=== PATIENT | female | born 1940 | race Caucasian/White ===

== ENCOUNTER 2024-10-14 14:20 | Emergency (ER) | payer MEDICARE, SELFPAY ==
[2024-10-14 14:26] VITALS: BP 144/84; PULSE 89; RESP 18; TEMP 36.4; O2SAT 97; BMI 25.0
--- NOTE | 2024-10-14 14:35 | XR_ITS ---
FINAL REPORT CLINICAL HISTORY: fell knee pain FINDINGS: LEFT KNEE 2 views of the left knee were obtained. There is no prior exam for comparison. There are changes from knee arthroplasty. The hardware is intact. There is no fracture. The joint space is preserved. There is a small joint effusion. The soft tissues are otherwise unremarkable. IMPRESSION: Postoperative changes without acute abnormality of the left knee. Reviewed, Interpreted and Dictated by Alley Watson MD Transcribed by Demetra Hammer Authenticated and . [facility]
--- NOTE | 2024-10-14 14:36 | XR_ITS ---
FINAL REPORT CLINICAL HISTORY: fall ankle pain FINDINGS: LEFT ANKLE 2 views of the left ankle were obtained. There is no prior exam for comparison. There is no acute fracture or dislocation. The mortise is intact. There is mild lateral soft tissue edema, otherwise the soft tissues are unremarkable. IMPRESSION: Lateral soft tissue edema, otherwise no acute abnormality. Reviewed, Interpreted and Dictated by Alley Watson MD Transcribed by Demetra Hammer Authenticated and [facility]
--- NOTE | 2024-10-14 14:44 | HMH.EDGENADL ---
Discharge Plan Disposition Patient Disposition: Home, Self-Care Condition: Good Prescriptions Prescriptions: No Action gabapentin 600 mg tablet 600 mg PO TID Patient Comments: TAKE 1 TABLET BY MOUTH THREE TIMES A DAY losartan 100 mg tablet 100 mg PO DAILY Patient Comments: TAKE 1 TABLET BY MOUTH EVERY DAY metoprolol tartrate 25 mg tablet 25 mg PO BID Patient Comments: TAKE 1 TABLET BY MOUTH TWICE A DAY oxycodone 10 mg tablet 10 mg PO QID Patient Comments: TAKE 1 TABLET BY MOUTH FOUR TIMES A DAY DNF-10/05/24 Referrals Follow up/Referrals: Provider,Referral, MD [Referring] - See instructions Activity Restrictions/Add. Instructions Additional Instructions/Restrictions: Wear your orthopedic boot till follow-up with your orthopedist. You should see him soon for reevaluation of your ankle and your knee. Recommend continuing taking Tylenol alternating every 4 hours with Motrin as well as ice compression elevation. If you have continued new or worsening signs or symptoms follow-up with your PCP or return to the ER as needed. Please follow-up with your orthopedist as scheduled for your neuropathy of your postsurgical knee. Clinical Impressions Clinical Impression: Contusion of knee, left Qualifiers: Encounter type: initial encounter Qualified Code(s): S80.02XA - Contusion of left knee, initial encounter Left ankle sprain Qualifiers: Encounter type: initial encounter Involved ligament of ankle: unspecified ligament Qualified Code(s): S93.402A - Sprain of unspecified ligament of left ankle, initial encounter Print Language Print Language: Liberian Discharge ED Provider: Howard Jose General Adult HPI <DEDE Feliz - Last Filed: 10/14/24 21:50> General Chief complaint: PAIN Stated complaint: AO 10/12 fall left ankle swelling/bruising/pain Time Seen by Provider: 10/14/24 14:37 Mode of Arrival: Wheelchair Source of Information: Patient Limitations: No Limitations Description of Symptoms (Recalled from ER Triage Doc. by RN): Pt fell on thursday getting out of the car and slipped on ice. Pt is have left knee and ankle pain. Pt states she had her left knee replaced in march. Pt is not on BT, did not have LOC. History of Present Illness HPI narrative: Patient presents for a left lower extremity injury. Patient fell on ice on Thursday. She suffered a bruise on her left knee as well as turned her left ankle. Patient however has been able to ambulate on it since but noticed that her foot was turning black and blue . She is on an aspirin a day. She denies any numbness tingling loss of motor or sensory. Related Data Home Medications ?Medication ?Instructions ?Recorded ?Confirmed gabapentin 600 mg tablet 600 mg PO TID 10/14/24 10/14/24 losartan 100 mg tablet 100 mg PO DAILY 10/14/24 10/14/24 metoprolol tartrate 25 mg tablet 25 mg PO BID 10/14/24 10/14/24 oxycodone 10 mg tablet 10 mg PO QID 10/14/24 10/14/24 Allergies Allergy/AdvReac Type Severity Reaction Status Date / Time morphine (MORPHINE) Allergy Unknown RESP. DIFF. Unverified 08/11/17 15:39 [facility] <DEDE Feliz - Last Filed: 10/14/24 21:50> [facility] Disclaimer: The information contained in this section may have been updated after the patient was seen, as this information can be updated by other users. Social History (Updated 10/14/24 @ 21:50 by DEDE Feliz) Smoking Status: Never smoker alcohol intake: never current occupational status: retired Travel in the last 8 weeks: None Have you lived/traveled outside [place] in past 30 days?: No Contact w/someone who lives/traveled outside [place] past 30 days?: No Exposure to someone with infectious disease in past 14 days?: No Do you have a fever (greater than 100.4 F or 38 C)?: No Have you tested positive for COVID-19: No Exposed to someone with COVID-19 in past 14 days?: No Do you have a sore throat?: No Do you have a cough?: No Do you have any weakness?: No Do you have any diarrhea?: No Are you experiencing any unusual bleeding?: No Do you have any muscle aches/pain?: No Do you have any abdominal pain?: No Are you experiencing loss of taste or smell?: No <DEDE Feliz - Last Filed: 10/14/24 21:50> ROS Obtained: Yes Systems reviewed as appropriate & no additional complaints except as documented Physical Exam <DEDE Feliz - Last Filed: 10/14/24 21:50> General General appearance: alert and in no apparent distress Respiratory Respiratory exam: Present normal lung sounds bilaterally Cardiovascular Cardiovascular exam: Present regular rate Extremities Exam Extremities exam: Present normal inspection and full ROM Neurological Exam Neurological exam: Present alert and oriented X3 Medical Decision Making <DEDE Feliz - Last Filed: 10/14/24 21:50> Medical Records Medical records reviewed: Yes I reviewed the patient's medical records. Screening: Per USPSTF and CDC recommendations, given the prevalence of disease in our region, it is our hospital?s policy to screen for HIV and viral Hepatitis for all patients aged 18 and over and those with ongoing risk factors. Chaim Inquiry Pt receiving controlled substance: No Vital Signs: 10/14/24 14:26 10/14/24 16:39 Temperature 97.6 F 97.6 F Temperature Source Temporal Artery Scan Temporal Artery Scan Pulse Rate 80 Pulse Rate [Right] 89 Respiratory Rate 18 18 Blood Pressure 140/80 Blood Pressure [Right Arm] 144/84 H Blood Pressure Mean [Right Arm] 104 Blood Pressure Source Automatic Cuff Blood Pressure Source [Right Arm] Automatic Cuff Blood Pressure Position [Right Arm] Supine 02 Sat by Pulse Oximetry 97 Oxygen Delivery Method Room Air Room Air Orders (Tests/Meds): ORDERS Category Date Time Status Ankle XR - Left 2 Views [XR ankle LT 2V] Stat Exams 10/14/24 14:36 Completed Knee XR left 2 views [XR knee LT 2V] Stat Exams 10/14/24 14:35 Completed Medical Decision Narrative: In summary patient is a 84-year-old female who presents to the emergency department for evaluation of lower extremity injury. Patient is hemodynamically stable upon arrival, afebrile. Physical exam is remarkable for contusion hematoma medial aspect to her left patella with no palpable bony deformity. Patient has tenderness to palpation at the bilateral malleoli but no bony deformity. Patient has ecchymosis from the bilateral malleoli throughout her entire foot. She is neurovascular intact distally. She does have full but painful range of motion of the foot.. Differential diagnosis includes sprain versus fracture versus hardware failure as patient has had previous knee replacement.. Initial workup will be conducted with plain film x-rays. Initial interventions include Tylenol and ibuprofen. Initial workup reviewed by me I do not see any evidence of bony deformity on her plain film imaging via my informal interpretation prior to radiology read.. Upon repeat evaluation patient is able to stand but is having difficulty ambulating normally on her left ankle. Given this I have ordered the patient an orthopedic boot and I have referred her to her orthopedic surgeon with whom she is established for ongoing new or worsening signs or symptoms or return to the ER as needed. <Howard Jose MD - Last Filed: 10/15/24 07:34> Vital Signs: 10/14/24 14:26 10/14/24 16:39 Temperature 97.6 F 97.6 F Temperature Source Temporal Artery Scan Temporal Artery Scan Pulse Rate 80 Pulse Rate [Right] 89 Respiratory Rate 18 18 Blood Pressure 140/80 Blood Pressure [Right Arm] 144/84 H Blood Pressure Mean [Right Arm] 104 Blood Pressure Source Automatic Cuff Blood Pressure Source [Right Arm] Automatic Cuff Blood Pressure Position [Right Arm] Supine 02 Sat by Pulse Oximetry 97 Oxygen Delivery Method Room Air Room Air Orders (Tests/Meds): ORDERS Category Date Time Status Ankle XR - Left 2 Views [XR ankle LT 2V] Stat Exams 10/14/24 14:36 Completed Knee XR left 2 views [XR knee LT 2V] Stat Exams 10/14/24 14:35 Completed Medical Decision Narrative: In summary patient is a 84-year-old female who presents to the emergency department for evaluation of lower extremity injury. Patient is hemodynamically stable upon arrival, afebrile. Physical exam is remarkable for contusion hematoma medial aspect to her left patella with no palpable bony deformity. Patient has tenderness to palpation at the bilateral malleoli but no bony deformity. Patient has ecchymosis from the bilateral malleoli throughout her entire foot. She is neurovascular intact distally. She does have full but painful range of motion of the foot.. Differential diagnosis includes sprain versus fracture versus hardware failure as patient has had previous knee replacement.. Initial workup will be conducted with plain film x-rays. Initial interventions include Tylenol and ibuprofen. Initial workup reviewed by me I do not see any evidence of bony deformity on her plain film imaging via my informal interpretation prior to radiology read.. Upon repeat evaluation patient is able to stand but is having difficulty ambulating normally on her left ankle. Given this I have ordered the patient an orthopedic boot and I have referred her to her orthopedic surgeon with whom she is established for ongoing new or worsening signs or symptoms or return to the ER as needed. I was consulted by the DANIEL, and we discussed the complexity of the problems being addressed. I approved the treatment and management plan for this patient's care in the Emergency Department, thus performing a substantive portion of the medical decision making. Howard Jose MD Critical Care <DEDE Feliz - Last Filed: 10/14/24 21:50> Critical Care Time Critical Care Time: No
--- NOTE | 2024-10-14 16:17 | PC.NURSE ---
Dr Dimas at bedside
[2024-10-14 16:39] VITALS: BP 140/80; PULSE 80; RESP 18; TEMP 36.4; O2SAT 98
== END 2024-10-14 16:42 | disposition home or self-care (01) ==
PROVIDERS: Emergency Provider Emergency Medicine; PCP Family Medicine
DX: S80.02XA Contusion of left knee, initial encounter (principal); S93.402A Sprain of unspecified ligament of left ankle, initial encounter; M25.562 Pain in left knee; M25.572 Pain in left ankle and joints of left foot; Z79.82 Long term (current) use of aspirin; W00.0XXA Fall on same level due to ice and snow, initial encounter; Y93.89 Activity, other specified; Y92.89 Other specified places as the place of occurrence of the external cause
CPT/HCPCS: 73560; 73600; 99284

== ENCOUNTER 2025-04-11 21:12 | Emergency (ER) | payer MEDICARE, SELFPAY ==
--- OUTSIDE RECORDS SUMMARY | 2025-03-22 13:58 | XMS_ITS | Encounter Summary ---
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 Machine Operator Name Role Phone Chad Coughlin MD Primary Care Provi kaitlin Reason for Referral * Diagnostic Imaging (Routine) - Closed Specialty Diagnoses / Procedures [facility] To Contact Radiology Diagnoses Postmenopause Procedures DEXA Bone Density Axial Michelle Hahn APRN Phone: tel: fax: [facility] DEXA DEVI [address] [place] [address] Phone: tel: Referral ID Status Reason Start Date Expiration Date Visits Re quested Visits Authorized [id number] Closed 01/06/2025 04/07/2026 1 1 Reason for Visit * Diagnostic Imaging (Routine) - Closed Specialty Diagnoses / Procedures [facility] Referred To Contact Radiology Diagnoses Postmenopause Procedures DEXA Bone Density Axial Michelle Hahn APRN Phone: tel: fax: [facility] DEXA DEVI [address] [place] [address] Phone: tel: Referral ID Status Reason Start Date Expiration Date Visits Re quested Visits Authorized [id number] Closed 01/06/2025 04/07/2026 1 1 Encounter Details Date Type Department Care Team (Latest Contact Info) Description 03/22/2025 1:58 PM EDT - 03/22/2025 11:59 PM EDT Hospital Encounter [facility] RENITA QUINONEZ [address] [place] [id number] Michelle Hahn, CHRISTINE [address] [place] [address] Postmenopause Discharge Disposition: Home or Self Care [...] or training? Not on file Preferred Language S[place]omean 04/06/2024 PHQ-2 Answer Date Recorded Retired PHQ-9: [...] Description 05/10/2025 11:30 AM EDT Office Visit [facility] RHEUMATOLOGY [address] [place] [address] HahnMichelle APRN [address] [place] [address] 05/24/2025 2:30 PM EDT Office Visit [facility] FAMILY MEDICINE [address] [facility] [address] [place] [address] Chad Coughlin MD [address] [facility] [address] [place] [address] Scheduled Procedures Name Priority Associated Diagnoses Date/Ti [...] to help you manage your pain. Notes: [place] with Chronic Pain Patient Goals No Karen [...] fall-prevention measurements. The National Osteoporosis Foundation recommends (http://www.nof.org/hcp/practice/krctpbid-mfa-gnbfylpa-guidelines/clinicians-omi de) that FDA-approved medical therapies be considered [...] the left hip with 95% confidence is 0.902196 gm/cm2 at the hip and 0.759647 g/cm2 at the lumbar spine. Report dictated by: Renata Huynh PA-c I have personally reviewed this case and agree with the findings above: Electronically Signed: Edwardo Pathak MD 03/22/2025 5:00 PM EDT Workstation ID: [id number] Narrative 03/22/2025 5:00 PM EDT DUAL-ENERGY X-RAY [...] normal patients. According to criteria established by the[facility], patients with T-scores between 1.0 and [...] the right one-third radius is 0.472g/cm2. The T- score is -3.7. The Z-score is -0.1. IMPRESSION: [...] exercises and fall-prevention measurements. The NationalOsteoporosis Foundation recommends(http://www.nof.org/hcp/practice/toutlcrc-aqm-zlqebeyp-guidelines/clin ician s-guide) that FDA-approved medical therapies be [...] at the left hipwith 95% confidence is 0.612372 gm/cm2 at the hip and 0.057102 g/cm2 atthe lumbar spine. Report dictated by: Renata Huynh PA-c I have personally reviewed this case and agree with the findings above: Electronically Signed: Edwardo Pathak MD 03/22/2025 5:00 PM EDT Workstation ID: [id number] us Michelle Hahn APRN IMG DXA ORDERABLES [...] documented as of this encounter Care Teams Folding Rules Printing Machine Operator Relationship Specialty Start Date End Date Chad Coughlin MD [address] [place] [address] PCP - General Family Medicine 05/06/18 documented as of this encounter
--- OUTSIDE RECORDS SUMMARY | 2025-04-07 10:50 | XMS_ITS | Encounter Summary ---
Author Organization [facility] Address [address] [place] [address] Care Team Providers Care Rubber Goods Repairer Name Role Phone Chad Coughlin MD Primary Care Provi kaitlin Reason for Visit * Reason Comments Follow-up 6 month follow up- 1 year status post Total Knee Arthroplasty left (DOS 04/05/24) Encounter Details Date Type Department Care Team (Late st Contact Info) Description 04/07/2025 10:50 AM EDT Office Visit [facility] ORTHOPEDICS & SPORTS MEDICINE [address] [address] Ronn Gerber MD [address] [place] [address] S/P TKR (total knee replacement), left (Primary Dx); Postoperative examination Social History Tobacco Use Types Packs/Day Years Used Date Smoking Tobacco: Never Smokeless Tobacco: Never Tobacco Cessation:Counseling Given: Not Answered Alcohol Use Standard Drinks/Week Comments No 0 [...] or training? Not on file Preferred Language Moroccan 04/06/2024 PHQ-2 Answer Date Recorded Retired PHQ-9: Brief Depression Severity Measure Score 12 05/05/2024 Comments No Sex and Gender Information Value Date Recorded Sex Assigned at Not on file Legal Sex Female 10:17 AM EDT Gender Identity Not on file Sexual Orientation Not on file documented as of this encounter Last Filed Vital Signs Vital Sign Reading Time Taken Comments Blood Pressure 116/74 04/07/2025 11:20 AM EDT Pulse - - Temperature - - Respiratory Rate - - Oxygen Saturation - - Inhaled Oxygen Concentration - - Weight 76.4 kg (168 lb 8 oz) 04/07/2025 11:20 AM EDT Height 152.4 cm (5') 04/07/2025 11:20 AM EDT Body Mass Index 32.91 04/07/2025 11:20 AM EDT documented in this encounter Progress Notes * Ronn Gerber MD - 04/07/2025 10:50 AM EDT Images from the original note were not included. [facility] [place] Subjective Chief Complaint Patient presents with Follow-up 6 month follow up- 1 year status post Total Knee Arthroplasty left (DOS 04/05/24) HPI It has been 6 month(s) since Ms. Hedrick's last visit. She returns to clinic today for follow-up of left knee arthroplasty. The issue has been ongoing for 1 year(s). She rates her pain a 9/10 on thepain scale. Previous/current treatments: physical therapy. Current symptoms: pain and swelling. Thepain is worse with standing and sleeping; resting, sitting, and pain medication and/or NSAID improve the pain. Overall, she is doing the same. 75 to 80% improvement compared to her preoperative symptoms. Unfortunately she has fibromyalgia which is a likely contributing factor to generalized pain that she has. I have reviewed the following portions of the patient's history and agree with: History of Present Illness and Review of Systems Patient Active Problem List Diagnosis Nausea & vomiting JOSÉ MIGUEL (acute kidney injury) Dehydration Transaminitis Generalized weakness Senile hyperkeratosis Melanocytic nevus of lower extremity Lentigo Vitamin D deficiency Stage 3a chronic kidney disease Degeneration of lumbar or lumbosacral intervertebral disc HNP (herniated nucleus pulposus), lumbar Chronic right-sided low back pain with right-sided sciatica Back pain s/p right L4-L5 lumbar laminectomy Essential hypertension Intractable low back pain Decreased ambulation status Herniated intervertebral disc of lumbar spine Dural tear Sciatica of right side Urinary tract infection in elderly patient Acute urinary retention Lumbar stenosis with neurogenic claudication Arthritis Left leg pain Disorder of skin Lumbar postlaminectomy syndrome Back pain DDD (degenerative disc disease), lumbar Facet hypertrophy of lumbar region Lumbar radicular pain Disorder of skin Bilateral stenosis of lateral recess of lumbar spine Melanocytic nevus of lower extremity Senile hyperkeratosis Urticaria, acute Degenerative arthritis of left knee Seropositive rheumatoid arthritis High risk medication use Primary osteoarthritis involving multiple joints Fibromyalgia S/P TKR (total knee replacement), left Acute postoperative pain Acute blood loss anemia, asymptomatic Postmenopause Past Medical History: Diagnosis Date Allergic Anxiety attack Arthritis Bronchitis Cancer colon Hypertension Kidney disease, chronic, stage II (GFR 60-89 ml/min) Nausea & vomiting 04/08/2018 RLS (restless legs syndrome) Sinusitis Strep throat Urinary tract infection Wears glasses Past Surgical History: Procedure Laterality Date APPENDECTOMY BACK SURGERY BREAST BIOPSY Bilateral COLON SURGERY 2013 colon polyp removed COLONOSCOPY 2018 FRACTURE SURGERY Right hand HERNIA REPAIR LUMBAR DISCECTOMY Right 01/20/2020 Procedure: LUMBAR DISCECTOMY RIGHT L4-5; Surgeon: Pacheco Tenorio MD; Location: [facility]; Service: Neurosurgery; Laterality: Right; LUMBAR LAMINECTOMY DISCECTOMY DECOMPRESSION N/A 01/27/2020 Procedure: LUMBAR DECOMPRESSION L4-5; Surgeon: Pacheco Tenorio MD; Location: [facility]; Service:Neurosurgery; Laterality: N/A; POLYPECTOMY TOTAL KNEE ARTHROPLASTY Left 04/05/2024 Procedure: TOTAL KNEE ARTHROPLASTY WITH CORI ROBOT; Surgeon: Ronn Gerber MD; Location: [facility]; Service: Robotics - Ortho; Laterality: Left; WRIST SURGERY right wrist distal radius and ulnar Family History Problem Relation Age of Onset Lung disease Father Alzheimer's disease Mother Social History Socioeconomic History Marital status: Tobacco Use Smoking status: Never Smokeless tobacco: Never Vaping Use Vaping status: Never Used Substance and Sexual Activity Alcohol use: No Drug use: No Sexual activity: Defer Current Outpatient Medications on File Prior to Visit Medication Sig Dispense Refill alendronate (FOSAMAX) 70 MG tablet Take 1 tablet by mouth Every 7 (Seven) Days. 4 tablet 11 aspirin 81 MG EC tablet Take 1 tablet by mouth Every 12 (Twelve) Hours. Indications: VTE Prophylaxis Cholecalciferol (VITAMIN D3) 50 MCG (2000 UT) tablet Take by mouth. ferrous sulfate 325 (65 FE) MG tablet Take 1 tablet by mouth Daily. fosfomycin (MONUROL) 3 g pack Take 1 packet as needed by oral route as directed for 60 days. gabapentin (NEURONTIN) 600 MG tablet Take 1 tablet by mouth 3 (Three) Times a Day. 90 tablet 1 hydroxychloroquine (PLAQUENIL) 200 MG tablet Take 1 tablet by mouth Daily. 30 tablet 5 losartan (COZAAR) 100 MG tablet Take 1 tablet by mouth Daily. 90 tablet 1 Magnesium Oxide -Mg Supplement 400 (240 Mg) MG tablet Take 1 tablet by mouth Daily. methocarbamol (ROBAXIN) 500 MG tablet Take 1 tablet by mouth 4 (Four) Times a Day. 60 tablet 3 metoprolol tartrate (LOPRESSOR) 25 MG tablet TAKE 1 TABLET BY MOUTH TWICE A DAY 180 tablet 1 oxyCODONE (ROXICODONE) 10 MG tablet 1 tab QID rOPINIRole (REQUIP) 1 MG tablet Take 1 tablet by mouth Every Night. Take 1 hour before bedtime. 90 tablet 1 No current facility-administered medications on file prior to visit. Allergies Allergen Reactions Morphine Anxiety, Hallucinations and Other (See Comments) morphine Ketorolac Tromethamine Hives Doxycycline Hives and GI Intolerance Tizanidine Other (See Comments) Kidney disease Tramadol Other (See Comments) Makes legs restless Review of Systems Constitutional: Negative for activity change, appetite change, chills, diaphoresis, fatigue, fever and unexpected weight change. HENT: Negative for congestion, dental problem, drooling, ear discharge, ear pain, facial swelling, hearing loss, mouth sores, nosebleeds, postnasal drip, rhinorrhea, sinus pressure, sneezing, sore throat, tinnitus, trouble swallowing and voice change. Eyes: Negative for photophobia, pain, discharge, redness, itching and visual disturbance. Respiratory: Negative for apnea, cough, choking, chest tightness, shortness of breath, wheezing andstridor. Cardiovascular: Negative for chest pain, palpitations and leg swelling. Gastrointestinal: Negative for abdominal distention, abdominal pain, anal bleeding, blood in stool,constipation, diarrhea, nausea, rectal pain and vomiting. Endocrine: Negative for cold intolerance, heat intolerance, polydipsia, polyphagia and polyuria. Genitourinary: Negative for decreased urine volume, difficulty urinating, dysuria, enuresis, flank pain, frequency, genital sores, hematuria and urgency. Musculoskeletal: Positive for arthralgias. Negative for back pain, gait problem, joint swelling, myalgias, neck pain and neck stiffness. Skin: Negative for color change, pallor, rash and wound. Allergic/Immunologic: Negative for environmental allergies, food allergies and immunocompromised state. Neurological: Negative for dizziness, tremors, seizures, syncope, facial asymmetry, speech difficulty, weakness, light-headedness, numbness and headaches. Hematological: Negative for adenopathy. Does not bruise/bleed easily. Psychiatric/Behavioral: Negative for agitation, behavioral problems, confusion, decreased concentration, dysphoric mood, hallucinations, self-injury, sleep disturbance and suicidal ideas. The patientis not nervous/anxious and is not hyperactive. Objective Physical Exam BP 116/74 Ht 152.4 cm (60 ) Wt 76.4 kg (168 lb 8 oz) LMP (LMP Unknown) BMI 32.91 kg/m?? Body mass index is 32.91 kg/m??. General: Mental Status: Alert Appearance: Cooperative, in no acute distress Build and Nutrition: Well-nourished well-developed female Orientation: Alert and oriented to person, place and time Posture: Normal Gait: Nonantalgic Integument: Left knee: Wound is well-healed with no signs of infection Lower Extremities: Left Knee: Tenderness: Medial/lateral tenderness to light touch Effusion: None Swelling: None Crepitus: None Range of motion: Extension: 0?? Flexion: 130?? Instability: No varus laxity, no valgus laxity, negative anterior drawer Deformities: None Imaging/Studies Imaging Results (Last 24 Hours) Procedure Component Value Units Date/Time XR Knee 3+ View With [place] Left [[id number]] Resulted: 04/07/251212 Updated: 04/07/251212 Narrative: Left Knee Radiographs Indication: status-post left total knee arthroplasty Views: AP, lateral, and sunrise views of the left knee Comparison: no change compared to prior study, 05/06/2024 Findings: The components are well aligned, with no signs of loosening or failure. Assessment and Plan Diagnoses and all orders for this visit: 1. S/P TKR (total knee replacement), left (Primary) - XR Knee 3+ View With [place] Left 2. Postoperative examination 1. S/P TKR (total knee replacement), left 2. Postoperative examination I reviewed my findings with patient. Her left total knee arthroplasty appears to be functioning well. I believe that her fibromyalgia is likely contributing to residual symptoms. I will see her back in 4 years for what will be a 5-year check with x-rays. I will see her back sooner for any problems. Return in about 4 years (around 04/07/2029) for recheck with x-rays. Ronn Gerber MD 04/07/25 12:18 EDT Dictated Utilizing [employer] Dictation documented in this encounter Plan of Treatment Upcoming Encounters Date Type Department Care Team (Late st Contact Info) Description 05/10/2025 11:30 AM EDT Office Visit [facility] RHEUMATOLOGY [address] [place] [phone] Michelle Hahn COMPRESSOR STATION ENGINEER [address] [place] [address] 05/24/2025 2:30 PM EDT Office Visit [facility] FAMILY MEDICINE [address] [facility] [address] [place] [phone] Chad Coughlin MD [address] [facility] [address] [place], [place] [id number] Scheduled Procedures Name Priority Associated Diagnoses Date/Ti [...] Track and Manage My Symptoms Patient Goals No Karen Covarrubias RN Note: [...] about it. Notes: Manage Pain Patient Goals No Karen Covarrubias RN Note: Follow Up Date - not discussed during this outreach Why is this important? Day-to-day life can be hard when you have chronic pain. Pain medicine is just one piece of the treatment puzzle. You can try these action steps to help you manage your pain. Notes: [place] with Chronic Pain Patient Goals No Karen [...] Procedure Name Priority Date/Time Associated Diagnosis Comments XR KNEE 3+ VW W SUNRISE LEFT Routine 04/07/2025 11:57 AM EDT S/P TKR (total knee replacement), left documented in this encounter Results * XR Knee 3+ View With [place] Left (04/07/2025 11:57 AM EDT) Anatomical Region Laterality Modality Lower Extremities, Knee Left Radio[facility] Imaging Narrative 04/07/2025 12:13 PM EDT Left Knee Radiographs Indication: status-post left total knee arthroplasty Views: AP, lateral, and sunrise views of the left knee Comparison: no change compared to prior study, 05/06/2024 Findings: The components are well aligned, with no signs of loosening or failure. 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
--- OUTSIDE RECORDS SUMMARY | 2025-04-07 11:45 | XMS_ITS | Encounter Summary ---
Author Organization [facility] Address [address] [place] [address] Care Team Providers Care Cattle Alley Worker Name Role Phone Chad Coughlin MD Primary Care Provi kaitlin Encounter Details Date Type Department Care Team (Late st Contact Info) Description 04/07/2025 11:45 AM EDT Ancillary Procedure [facility] SPORTS MEDICINE [address] [phone] Social History Tobacco Use Types Packs/Day Years [...] or training? Not on file Preferred Language Turkmen 04/06/2024 PHQ-2 Answer Date Recorded Retired PHQ-9: Brief Depression Severity Measure Score 12 05/05/2024 Comments No Sex and Gender Information Value Date Recorded Sex Assigned at Not on file Legal Sex Female 10:17 AM EDT Gender Identity Not on file Sexual Orientation Not on file documented as of this encounter Plan of Treatment Upcoming Encounters Date Type Department Care Team (Late st Contact Info) Description 05/10/2025 11:30 AM EDT Office Visit [facility] RHEUMATOLOGY [address] [phone] Michelle Hahn APRN [address] [address] 05/24/2025 2:30 PM EDT Office Visit [facility] FAMILY MEDICINE [address] [phone] Chad Coughlin MD [address] [address] Scheduled Procedures Name Priority Associated Diagnoses Date/Ti [...] to help you manage your pain. Notes: [place] with Chronic Pain Patient Goals No Karen [...] Results * XR Knee 3+ View With [place] Left (04/07/2025 11:57 AM EDT) Anatomical Region Laterality Modality Lower Extremities, Knee Left Radiogra phic Imaging Narrative 04/07/2025 12:13 PM EDT Left Knee Radiographs Indication: status-post left total knee arthroplasty Views: AP, lateral, and sunrise views of the left knee Comparison: no change compared to prior study, 05/06/2024 Findings: The components are well aligned, with no signs of loosening or failure. 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
[2025-04-11 22:10] VITALS: BP 205/109; PULSE 71; RESP 16; TEMP 36.6; O2SAT 98; BMI 28.5
--- OUTSIDE RECORDS SUMMARY | 2025-04-11 22:20 | XMS_ITS | Encounter Summary ---
[facility] Address [address] [place] [address] Care Team Providers Care Rod Mill Operator Name Role Phone Chad Coughlin MD Primary Care Provi kaitlin Encounter Details Date Type Department Care Team (Late Contact Info) Description 11/04/2016 External CPT II [facility] [employer] CONSULTANT - [employer] Social History Tobacco Use Types Packs/Day Years Used Date Smoking Tobacco: Never Alcohol Use Standard Drinks/Week Comments No 0 (1 standard drink = 0.6 oz pur e alcohol) Comments No Sex and Gender Information Value Date Recorded Sex Assigned at Not on file Legal Sex Female 10:17 AM EDT Gender Identity Not on file Sexual Orientation Not on file documented as of this encounter Plan of Treatment Upcoming Encounters Date Type Department Care Team (Late Contact Info) Description 05/10/2025 11:30 AM EDT Office Visit [facility] RHEUMATOLOGY [address] [place] [address] Michelle Hahn APRN [address] [facility] [address] [place] [address] 05/24/2025 2:30 PM EDT Office Visit [facility] FAMILY MEDICINE [address] [facility] [address] [place] [address] Chad Coughlin MD [address] [facility] [address] [place] [phone] Scheduled Procedures Name Priority Associated Diagnoses Date/Ti me CV IR MYELOGRAM, LUMBAR Lumbar stenosis with neurogenic claudication Facet hypertrophy of lumbar region Degeneration of lumbar or lumbosacral intervertebral disc DDD (degenerative disc disease), lumbar Lumbar radicular pain S/P lumbar laminectomy Sciatica of right side Lumbar postlaminectomy syndrome Intractable low back pain Generalized weakness documented as of this encounter Visit Diagnoses Not on filedocumented in this encounter Additional Health Concerns Infection Onset Date Last Indicated Resolved Time COVID Screen (preop/placement) 01/17/2020 01/17/2020 01/18/2020 3:53 PM EDT COVID Screen (preop/placement) 01/25/2020 01/25/2020 01/25/2020 7:31 PM EDT Other Comment:Discharged from [facility] on 02/21/20 -Merry Bell RN, BSN, CIC - Infection Control 02/23/2020 02/23/2020 06/26/2023 2:54 PM E DT COVID Screen (preop/placement) 02/23/2020 02/23/2020 02/23/2020 10:57 AM EDT COVID (rule out) 06/26/2023 06/26/2023 06/26/2023 2:54 PM EDT COVID (rule out) 09/12/2023 09/12/2023 09/19/2023 9:08 PM EST COVID Screen (preop/placement) 11/09/2023 11/09/2023 11/09/2023 7:39 PM EDT MRSA 11/09/2023 11/09/2023 documented as of this encounter Care Teams Rod Mill Operator Relationship Specialty Start Date End Date Chad Coughlin MD [address] [facility] [address] [place] [address] PCP - General Family Medicine 05/06/18 documented as of this encounter
--- OUTSIDE RECORDS SUMMARY | 2025-04-11 22:20 | XMS_ITS | Encounter Summary ---
[facility] Organization [facility] Address [address] [place] [address] Care Team Providers Care Acute Care Assistant Name Role Phone Chad Coughlin MD Primary Care Provi kaitlin Reason for Visit * Reason Onset Date Comments Med Refill 05/01/2020 Encounter Details Date Type Department Care Team (Late st Contact Info) Description 05/01/2020 Refill [facility] [address] [phone] Chad Coughlin MD [address] [place] [address] Social History Tobacco Use Types Packs/Day Years Used Date Smoking Tobacco: Never Smokeless Tobacco: Never Alcohol Use Standard Drinks/Week Comments No 0 (1 standard drink = 0.6 oz pur e alcohol) PHQ-2 Answer Date Recorded PHQ-2 Score 0 03/30/2019 Comments No Sex and Gender Information Value Date Recorded Sex Assigned at Not on file Legal Sex Female 10:17 AM EDT Gender Identity Not on file Sexual Orientation Not on file documented as of this encounter Miscellaneous Notes * Telephone Encounter - Grover Valencia - 05/01/2020 10:01 AM EDT Pt is requesting a refill of losartan and have it sent to [facility]. documented in this encounter Plan of Treatment Upcoming Encounters Date Type Department Care Team (Late st Contact Info) Description 05/10/2025 11:30 AM EDT Office Visit [facility] [address] [place] [phone] Michelle Hahn APRN 330 [facility] 100 [place], [place] [id number] 05/24/2025 2:30 PM EDT Office Visit [facility] 1760 [facility] [address] [place] [address] Chad Coughlin MD 1760 [facility] [address]03 [place], [place] [address] Scheduled Procedures Name Priority Associated Diagnoses Date/Ti [...] Infection Onset Date Last Indicated Resolved Time Other Comment:Discharged from [facility] on 02/21/20 -Merry Bell RN, BSN, CIC - Infection Control 02/23/2020 02/23/2020 06/26/2023 2:54 PM E DT COVID (rule out) 06/26/2023 06/26/2023 06/26/2023 2:54 PM EDT COVID (rule out) 09/12/2023 09/12/2023 09/19/2023 9:08 PM EST COVID Screen (preop/placement) 11/09/2023 11/09/2023 11/09/2023 7:39 PM EDT MRSA 11/09/2023 11/09/2023 documented as of this encounter Care Teams Acute Care Assistant Relationship Specialty Start Date End Date Chad Coughlin MD [address] [place] [address] PCP - General Family Medicine 05/06/18 documented as of this encounter
--- OUTSIDE RECORDS SUMMARY | 2025-04-11 22:21 | XMS_ITS | Clinical Summary ---
Author Organization [facility] Address [address] [place] [address] Phone Care Team Providers Care Technology And Engineering Teacher Name Role Phone Pacheco Rogers Mateo Unavailable Conditions or Problems Problem Name Problem Code Onset Date Status Entry Date Provider Comment Standard Description Annotate Fall risk 863196609 (SNOMED CT) Active Artemio Curtis MD At increased risk for falls Rheumatoid factor, positive 295034730 (SNOMED CT) Active Artemio Curtis MD Rheumatoid factor detected Other specified urticaria 550530435 (SNOMED CT) Active Stephani Rafael Urticaria Elevated C-reative protein 981633507 (SNOMED CT) Active Stephani Rafael C-reactive protein outside reference range Pruritic rash 23946458 (SNOMED CT) Active Stephani Rafael Pruritic rash 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 Provider GABAPENTIN 600 MG TABS Take 1 tablet by mouth three times a day gabapentin 77632907947 Bernadette Minor ASPIRIN 81 PO Take by mouth ASPIRIN 81 PO Bernadette Minor LOSARTAN POTASSIUM 100 MG TABS Take 1 tablet by mouth once a day losartan 37458747410 Bernadette Minor ROPINIROLE HCL 1 MG TABS Take 1 tablet by mouth every night ropinirole 91066086406 Bernadette Weber FLUTICASONE PROPIONATE 50 MCG/ACT SUSP 2 spray into both nostrils as directed fluticasone propionate 40794328734 Bernadette Weber VITAMIN D3 50 MCG (1999 UT) TABS Take by mouth cholecalciferol (vitamin d3) 36938425745 Bernadette Weber CETIRIZINE HCL 10 MG TABS Take 1 tablet by mouth once a day cetirizine 67301516032 Bernadette Weber HYDROXYZINE HCL 25 MG TABS Take 1 tablet by mouth three times a day as needed hydroxyzine hcl 94896501503 Bernadette Weber FAMOTIDINE 40 MG TABS Take 1 tablet by mouth once a day famotidine 21323446958 Bernadette Weber ROPINIROLE HCL 1 MG TABS Take 1 tablet by mouth Every Night. Take 1 hour before bedtime. ropinirole 89168659165 QIE qieuser PREDNISONE 20 MG TABS Take 3 tablets by mouth Daily for 3 days, THEN 2 tablets Daily for 3 days, THEN 1 tablet Daily for 3 days. prednisone 13903585510 QIE qieuser OXYCODONE-ACET AMINOPHEN 5-325 MG TABS TAKE 1 TABLET BY MOUTH TWICE A DAY FOR 7 DAYS THEN 1 TABLET 3 TIMES A DAY oxycodone-acetamin ophen 87250892694 QIE qieuser LOSARTAN POTASSIUM 100 MG TABS Take 1 tablet by mouth Daily. losartan 12986167308 QIE qieuser HYDROXYZINE HCL 25 MG TABS Take 1 tablet by mouth 3 (Three) Times a Day As Needed for Itching. hydroxyzine hcl 54037003429 QIE qieuser GABAPENTIN 600 MG TABS Take 1 tablet by mouth 3 (Three) Times a Day. gabapentin 79537653748 QIE qieuser FLUTICASONE PROPIONATE 50 MCG/ACT SUSP 2 sprays into the nostril(s) as directed by provider Every Night for 30 days. Administer 2 sprays in each nostril for each dose. fluticasone propionate 58677573090 QIE qieuser FAMOTIDINE 40 MG TABS Take 1 tablet by mouth Daily. famotidine 63985889972 QIE qieuser VITAMIN D3 50 MCG (2000 UT) TABS Take by mouth. cholecalciferol (vitamin d3) 12828045689 QIE qieuser CETIRIZINE HCL 10 MG TABS Take 1 tablet by mouth Daily. cetirizine 24752610942 QIE qieuser ASPIRIN 81 PO Take by mouth. ASPIRIN 81 PO QIE qieuser Medications Administered No information available. Allergies, Adverse Reactions, Alerts Allergy Name Reaction Description Start Date Severity Statu s Provider TRAMADOL Other (See Comments) Moderate Active Bernadette Minor TIZANIDINE Other (See Comments) Moderate Active Bernadette Minor MORPHINE Anxiety Critical Active Bernadette Mi nor DOXYCYCLINE Unknown - High Severity Mild Act noris Bernadette Minor Results Date Name Value Unit Range Flag Description Office Visit: Office Visit: VAPE_USE Never Tobacco smok ing status Lab Report: CBC With Differe ntial/Platelet, Comp. Metabolic Panel (14), ... ESR 4 mm/h 0-40 Erythrocyte sedimentation rate by Westergren method SGPT (ALT) 24 U/L 0-32 Alanine aminotransferase [Enzymatic activity/volume] in Serum or Plasma SGOT (AST) 12 U/L 0-40 Aspartate aminotransferase [Enzymatic activity/volume] in Serum or Plasma ALK PHOS 69 U/L 44-121 Alkaline miles sphatase [Enzymatic activity/volume] in Blood BILI TOTAL 0.4 mg/dL 0.0-1.2 Bilirubin. total [Mass/volume] in Serum or Plasma A/G RATIO 1.9 1.2-2.2 Albumin/Ana Laura bulin [Mass Ratio] in Serum or Plasma GLOBULIN 2.1 1.5-4.5 Globulin [Mass/volume] in Serum ALBUMIN 4.0 g/dL 3.7-4.7 Albumin [Mass /volume] in Serum or Plasma PROTEIN, TOT 6.1 g/dL 6.0-8.5 Protein [Mass/volume] in Serum or Plasma Lab Report: CBC With Differe ntial/Platelet, Basic Metabolic Panel (8), R ... CRP <1 mg/L mg/dL 0-10 C reactive pr otein [Mass/volume] in Serum or Plasma ANASCR IFA N RAYMOND SCREEN , IFA CCP AB, IGG 74 U 0-19 H Cyclic ci trullinated peptide IgG RA FACTOR 12.4 [iU]/mL <14.0 Rheumatoid factor [Units/volume] in Serum or Plasma CALCIUM 9.6 mg/dL 8.7-10.3 Calcium [Moles/volume] in Serum or Plasma CO2 20 mmol/L 20-29 Carbon dioxid e, total [Moles/volume] in Venous blood CHLORIDE 105 mmol/L 96-106 Chloride [Moles/volume] in Serum or Plasma POTASSIUM 4.4 mmol/L 3.5-5.2 Potassium [Moles/volume] in Serum or Plasma SODIUM 141 mmol/L 134-144 Sodium [Moles /volume] in Serum or Plasma BUN/CREAT 17 12-28 Urea nitrogen/Creatinine [Mass Ratio] in Serum or Plasma CREATININE 1.49 mg/dL 0.57-1.00 H Creatini ne [Mass/volume] in Serum or Plasma BUN 26 mg/dL 8-27 Urea nitrogen [Mass/volume] in Serum or Plasma GLUCOSE SER 89 mg/dL 70-99 Glucose [ Mass/volume] in Serum or Plasma IMMATUREGRAN 0.0 X10E3/UL 0.0-0.1 Imm ature granulocytes [#/volume] in Blood IMM GRANU % 0 % Not Estab. Immatu re granulocytes/100 leukocytes in Blood BASO# 0.0 x10E3/uL 0.0-0.2 Basophil s [#/volume] in Blood EOS ABSLT 0.1 X10E3/UL 10*3/uL 0.0-0.4 Eosino phils [#/volume] in Blood MONOSCT AUTO 0.7 X10E3/UL 10*3/uL 0.1-0.9 Mon ocytes [#/volume] in Blood by Automated count LYMPHCT AUTO 2.3 X10E3/UL 10*3/mm3 0.7-3.1 Ly mphocytes [#/volume] in Blood by Automated count ABS NEUTROPH 5.0 X10E3/UL 10*3/uL 1.4-7.0 Geovanna trophils [#/volume] in Blood BASOPHIL % 0 % Not Estab. Basophi ls/100 leukocytes in Blood by Manual count % EOS AUTO 1 % Not Estab. Eosinop hils/100 leukocytes in Blood by Automated count MONOCYTE % 9 % Not Estab. Monocyt es/100 leukocytes in Blood by Automated count LYMPHS % 28 % Not Estab. Lymphocyt es/100 leukocytes in Blood by Automated count PMN % 62 % Not Estab. Neutrophil s/100 leukocytes in Blood by Automated count PLATELETS 219 X10E3/UL 10*3/mm3 150-450 Plate lets [#/volume] in Blood by Automated count RDW 12.8 % 11.7-15.4 Erythrocyte distribution width [Ratio] by Automated count MCHC 32.3 G/DL 31.5-35.7 MCHC [Mass/ volume] by Automated count MCH 30.2 pg 26.6-33.0 MCH [Entiti c mass] by Automated count MCV 94 fL 79-97 MCV [Entitic volume] by Automated count HCT 40.3 % 34.0-46.6 Hematocrit [Volume Fraction] of Blood by Automated count HGB 13.0 g/dL 11.1-15.9 Hemoglobin [Mass/volume] in Blood RBC 4.31 X10E6/UL 10*6/mm3 3.77-5.28 Erythrocytes [#/volume] in Blood by Automated count WBC 8.2 X10E3/UL 10*3/mm3 3.4-10.8 Leukoc ytes [#/volume] in Blood by Automated count Office Visit: Office Visit:1 2 MEDS REVIEW Done Documenta tion of current medications (procedure) ORALTOBACUSE Never Tobacco smoking status SMOK STATUS Never smoker 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 Plan of Care Type Date Detail Referral Primary Care Pending order BMP Pending order CBC with Differe ntial Pending order C- reactive prot ein Pending order RAYMOND Pending order Other Pending order CMP Pending order CBC with Differe ntial Pending order C- reactive prot ein Pending order Sedimentation Ra te (ESR) Procedures Code Procedure Name Date Entry Date CPT-75624 BMP [id number] CBC with Differential 2023 CPT-77232 C- reactive protein CPT-94696 RAYMOND CPT-LAB Other CPT-prim Primary Care CPT-27374 CMP [id number] CBC with Differential 2023 CPT-01415 C- reactive protein CPT-19243 Sedimentation Rate (ESR) 11/24/25 Vital Signs Date Name Value Unit Description BMI (Body Mass Index) 28.61 kg/m2 Bod y Mass Index (Ratio) Body Temperature 97.1 [degF] temperat ure E&M BP Diastolic 72 mm[Hg] blood pressu re, diastolic BP Systolic 118 mm[Hg] blood pressur e, systolic Heart Rate 81 /min pulse rate Height 63 [in_us] height E&M Respiratory Rate 16 /min respirat ory rate E&M Weight Measured 161.50 [lb_av] weight E& M Weight Measured 161.50 [lb_av] weight E& M Immunizations No information available. Advance Directives Directive Description Start Date LIVING WILL ON FILE
--- OUTSIDE RECORDS SUMMARY | 2025-04-11 22:21 | XMS_ITS | Encounter Summary ---
Author Organization [facility] Address [address] [place] [address] Care Team Providers Care Nurse Office Name Role Phone Chad Coughlin MD Primary Care Provi kaitlin Encounter Details Date Type Department Care Team (Latest Contact Info) Description 04/07/2025 Travel Social History Tobacco Use Types Packs/Day Years [...] or training? Not on file Preferred Language Urdu 04/06/2024 PHQ-2 Answer Date Recorded Retired PHQ-9: [...] Description 05/10/2025 11:30 AM EDT Office Visit [facility] [address] [phone] Michelle Hahn APRN [address] [address] 05/24/2025 2:30 PM EDT Office Visit [facility] [address] [phone] Chad Coughlin MD [address] [address] Scheduled Procedures Name Priority Associated Diagnoses Date/Ti [...] to help you manage your pain. 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
--- OUTSIDE RECORDS SUMMARY | 2025-04-11 22:21 | XMS_ITS | Encounter Summary ---
[facility] Organization [facility] Address [address] [place] [address] Care Team Providers Care Seo Specialist Name Role Phone Chad Coughlin MD Primary Care Provi kaitlin Encounter Details Date Type Department Care Team (Late st Contact Info) Description 03/21/2025 Refill [facility] [address] [phone] Chad Coughlin MD [address] [place] [address] Social History Tobacco Use Types Packs/Day Years [...] or training? Not on file Preferred Language Senegalese 04/06/2024 PHQ-2 Answer Date Recorded Retired PHQ-9: Brief Depression Severity Measure Score 12 05/05/2024 Comments No Sex and Gender Information Value Date Recorded Sex Assigned at Not on file Legal Sex Female 10:17 AM EDT Gender Identity Not on file Sexual Orientation Not on file documented as of this encounter Miscellaneous Notes * Telephone Encounter - Caleb Ojeda RegSched Rep - 03/21/2025 10:51 AM EDT Caller: Ritu Hedrick Relationship: Self Best call back number: [phone] Requested Prescriptions: Requested Prescriptions Pending Prescriptions Disp Refills losartan (COZAAR) 100 MG tablet Sig: Take 1 tablet by mouth Daily. Pharmacy where request should be sent: [id number] - [place], [place] - [facility] [address]ELENA [address]ARCIA AT [facility] & - [phone] - [phone] FX Last office visit with prescribing clinician: 05/05/2024 Last telemedicine visit with prescribing clinician: Visit date not found Next office visit with prescribing clinician: 05/25/2025 Does the patient have less than a 3 day supply: [] Yes [x] No Would you like a call back once the refill request has been completed: [] Yes [x] No If the office needs to give you a call back, can they leave a voicemail: [] Yes [x] No Kerry Marin Rep 03/21/25 10:52 EDT documented in this encounter Plan of Treatment Upcoming Encounters Date Type Department Care Team (Late st Contact Info) Description 05/10/2025 11:30 AM EDT Office Visit [facility] [address] [phone] Michelle Hahn APRN 330 [facility] 100 [place], [place] [phone] 05/24/2025 2:30 PM EDT Office Visit [facility] [address] [phone] Chad Coughlin MD 1760 [facility] [address] [place] [address] Scheduled Procedures Name Priority Associated Diagnoses Date/Ti [...] to help you manage your pain. Notes: [place] with Chronic Pain Patient Goals Karen Alcazar RN Note: [...] Notes: Keep Pain Under Control Patient Goals Karen Alcazar RN Note: Follow [...] documented as of this encounter Care Teams Seo Specialist Relationship Specialty Start Date End Date Chad Coughlin MD [facility] [facility] [phone] PCP - General Family Medicine 05/06/18 documented as of this encounter
--- OUTSIDE RECORDS SUMMARY | 2025-04-11 22:21 | XMS_ITS | Encounter Summary ---
[facility] Address [address] [place] [address] Care Team Providers Care Crumb Packer Name Role Phone Chad Coughlin MD Primary Care Provi kaitlin Reason for Visit * Reason Onset Date Comments Med Refill 09/13/2024 Encounter Details Date Type Department Care Team (Late st Contact Info) Description 09/13/2024 Refill [facility] [address] [place] [phone] Chad Coughlin MD [address] [place] [address] Social History Tobacco Use Types Packs/Day Years [...] or training? Not on file Preferred Language Sami 04/06/2024 PHQ-2 Answer Date Recorded Retired PHQ-9: Brief Depression Severity Measure Score 12 05/05/2024 Comments No Sex and Gender Information Value Date Recorded Sex Assigned at Not on file Legal Sex Female 10:17 AM EDT Gender Identity Not on file Sexual Orientation Not on file documented as of this encounter Miscellaneous Notes * Telephone Encounter - Magdiel Olivares RegSched Rep - 09/13/2024 10:09 AM EST Caller: Ritu Hedrick Relationship: Self Best call back number: [phone] Requested Prescriptions: Requested Prescriptions Pending Prescriptions Disp Refills rOPINIRole (REQUIP) 1 MG tablet 90 tablet 1 Sig: Take 1 hour before bedtime. Cholecalciferol (Vitamin D3) 50 MCG (1999 UT) tablet 30 tablet Sig: Take by mouth. Pharmacy where request should be sent: [id number] - [place], [place] - [facility] [address] AT [facility] - [phone] - [phone] FX Last office visit with prescribing clinician: 05/05/2024 Last telemedicine visit with prescribing clinician: Visit date not found Next office visit with prescribing clinician: Visit date not found Does the patient have less than a 3 day supply: [x] Yes [] No Would you like a call back once the refill request has been completed: [] Yes [x] No If the office needs to give you a call back, can they leave a voicemail: [] Yes [x] No Kerry Rae Rep 09/13/24 10:10 EST documented in this encounter Plan of Treatment Upcoming Encounters Date Type Department Care Team (Late st Contact Info) Description 05/10/2025 11:30 AM EDT Office Visit [facility] [address] [phone] Michelle Hahn APRN [address] [address] 05/24/2025 2:30 PM EDT Office Visit [facility] [address] [phone] Chad Coughlin MD [address] [address] Scheduled Procedures Name Priority Associated Diagnoses Date/Ti [...] and Manage My Symptoms Patient Goals Karen Alcazar, RN Note: Follow Up Date - not [...] to help you manage your pain. Notes: [place] with Chronic Pain Patient Goals No Karen [...] to help you manage your pain. 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
--- OUTSIDE RECORDS SUMMARY | 2025-04-11 22:21 | XMS_ITS | Encounter Summary ---
[facility] Address [address] [place] [address] Care Team Providers Care Manager Fixed Income Name Role Phone Chad Coughlin MD Primary Care Provi kaitlin Reason for Visit * Reason Onset Date Comments Med Refill 04/26/2024 Encounter Details Date Type Department Care Team (Late st Contact Info) Description 04/26/2024 Refill [facility] [address] [place] [phone] Chad Coughlin MD [address] [place], [place] [phone] Social History Tobacco Use Types Packs/Day Years [...] or training? Not on file Preferred Language [place] 04/06/2024 PHQ-2 Answer Date Recorded Retired PHQ-9: Brief Depression Severity Measure Score 0 03/01/2024 Comments No Sex and Gender Information Value Date Recorded Sex Assigned at Not on file Legal Sex Female 10:17 AM EDT Gender Identity Not on file Sexual Orientation Not on file documented as of this encounter Miscellaneous Notes * Telephone Encounter - Luisa Novak MA - 04/27/2024 3:13 PM EDT Left detailed vm. * Telephone Encounter - Chad Coughlin MD - 04/27/2024 12:29 PM EDT We are not a pain medicine practice. I have given her oxycodone 7.5 mg #20. * Telephone Encounter - Luisa Novak MA - 04/27/2024 9:28 AM EDT Additional details provided by patient: PATIENT STATED SHE HAS BEEN GOING TO PAIN MANAGEMENT BUT HAD KNEE SURGERY WITH DR DAVIS AND THEN HAD TO GO TO [facility]. SHE DEVELOPED A BLOOD CLOT ETC. SHEIS DUE TO COME IN TO SEE PCP ON 05/05/24 AND WANTS TO KNOW IF PCP WILL KAHN HER ENOUGH OF THE ABOVE MEDICATION TO GET HER TO THE APPT. SHE HAS TO SET UP ANOTHER APPT TO GET INTO PAIN MANAGEMENT AND MAY BE OUT A MONTH OR SO AND THE PROVIDER THAT DONE THE SURGERY ADVISED HER TO CONTACT PCP FOR REFILL.CALL PATIENT TO ADVISE * Telephone Encounter - Stephani Bone RegSchkareem Rep - 04/26/2024 4:19 PM EDT Caller: Ritu Hedrick Relationship: Self Best call back number: [phone] Requested Prescriptions: Requested Prescriptions Pending Prescriptions Disp Refills oxyCODONE-acetaminophen (PERCOCET) 10-325 MG per tablet Sig: Take 1 tablet by mouth Every 6 (Six) Hours As Needed for Moderate Pain. Pharmacy where request should be sent: [id number] - [place], [place] - [facility] [address]ER AT [facility]EXT TO [facility] - [phone] - [phone] FX Last office visit with prescribing clinician: 03/01/2024 Last telemedicine visit with prescribing clinician: Visit date not found Next office visit with prescribing clinician: 05/05/2024 Additional details provided by patient: PATIENT STATED SHE HAS BEEN GOING TO PAIN MANAGEMENT BUT HAD KNEE SURGERY WITH DR DAVIS AND THEN HAD TO GO TO [facility]. SHE DEVELOPED A BLOOD CLOT ETC. SHEIS DUE TO COME IN TO SEE PCP ON 05/05/24 AND WANTS TO KNOW IF PCP WILL KAHN HER ENOUGH OF THE ABOVE MEDICATION TO GET HER TO THE APPT. SHE HAS TO SET UP ANOTHER APPT TO GET INTO PAIN MANAGEMENT AND MAY BE OUT A MONTH OR SO AND THE PROVIDER THAT DONE THE SURGERY ADVISED HER TO CONTACT PCP FOR REFILL.CALL PATIENT TO ADVISE Does the patient have less than a 3 day supply: [x] Yes [] No Would you like a call back once the refill request has been completed: [x] Yes [] No If the office needs to give you a call back, can they leave a voicemail: [x] Yes [] No Kerry Caldera Rep 04/26/24 16:22 EDT documented in this encounter Plan of Treatment Upcoming Encounters Date Type Department Care Team (Late st Contact Info) Description 05/10/2025 11:30 AM EDT Office Visit [facility] [address] [facility] [address] [place] [phone] Michelle Hahn APRN 330 [facility] [address] [place] [address] 05/24/2025 2:30 PM EDT Office Visit [facility] 1760 [facility] [address] [place] [phone] Chad Coughlin MD 1760 [facility] [address] [place], [place] [phone] Scheduled Procedures Name Priority Associated Diagnoses Date/Ti [...] and Manage My Blood Pressure Patient Goals Karen Alcazar RN Note: Follow [...] to help you manage your pain. Notes: [place] with Chronic Pain Patient Goals No Karen [...] Last Indicated Resolved Time MRSA 11/09/2023 11/09/2023 documented as of this encounter Care Teams Manager Fixed Income Relationship Specialty [place] [address] [place], [place] [phone] PCP - General Family Medicine 05/06/18 documented as of this encounter
--- OUTSIDE RECORDS SUMMARY | 2025-04-11 22:21 | XMS_ITS | Encounter Summary ---
Author Organization [facility] Address [address] [place] [address] Care Team Providers Care Major Assembly Lineman Name Role Phone Chad Coughlin MD Primary Care Provi kaitlin Reason for Visit * Reason Onset Date Comments Bone Density Scan 03/28/2025 Encounter Details Date Type Department Care Team (Late st Contact Info) Description 03/28/2025 Telephone [facility] RHEUMATOLOGY [address] [phone] Michelle Hahn APRN 330 [facility] 100 [place], [place] [id number] Bone Density Scan Social History Tobacco Use Types Packs/Day Years [...] or training? Not on file Preferred Language Andorran 04/06/2024 PHQ-2 Answer Date Recorded Retired PHQ-9: Brief Depression Severity Measure Score 12 05/05/2024 Comments No Sex and Gender Information Value Date Recorded Sex Assigned at Not on file Legal Sex Female 10:17 AM EDT Gender Identity Not on file Sexual Orientation Not on file documented as of this encounter Miscellaneous Notes * Telephone Encounter - Jenn Dale MA - 03/28/2025 1:53 PM EDT Per Lesia Martínez, a copy of her Dexa report has been mailed to pt. -ABEL Velasquez * Telephone Encounter - Jenn Dale MA - 03/28/2025 1:38 PM EDT Pt called asking that I go over dexa results with her again. I did. She verbalized understanding. She asked that a copy of the report be mailed to her. I sent a message to Lesia Kimbrough In Teams asking her to mail pt a copy of her Dexa results. -ABEL Velasquez documented in this encounter Plan of Treatment Upcoming Encounters Date Type Department Care Team (Late st Contact Info) Description 05/10/2025 11:30 AM EDT Office Visit [facility] RHEUMATOLOGY [address] [place] [phone] Michelle Hahn APRN [address] [place] [address] 05/24/2025 2:30 PM EDT Office Visit [facility] FAMILY MEDICINE 1760 [facility] 603 [place] [address] Chad Coughlin MD 1760 [facility] 603 [place], [place] [phone] Scheduled Procedures Name Priority Associated Diagnoses Date/Ti [...] to help you manage your pain. Notes: [place] with Chronic Pain Patient Goals No Karen [...] documented as of this encounter Care Teams Major Assembly Lineman Relationship Specialty Start Date End Date Chad Coughlin MD 1760 [place] [address] PCP - General Family Medicine 05/06/18 documented as of this encounter
--- OUTSIDE RECORDS SUMMARY | 2025-04-11 22:21 | XMS_ITS | Encounter Summary ---
[facility] Address [address] [place] [address] Care Team Providers Care Shop Assistant Name Role Phone Chad Coughlin MD Primary Care Provi kaitlin Reason for Visit * Reason Onset Date Comments Med Refill 01/18/2025 Encounter Details Date Type Department Care Team (Late st Contact Info) Description 01/18/2025 Refill [facility] FAMILY MEDICINE [address] [place] [phone] Chad Coughlin MD [address] [place], [place] [id number] Social History Tobacco Use Types Packs/Day Years [...] or training? Not on file Preferred Language Greek 04/06/2024 PHQ-2 Answer Date Recorded Retired PHQ-9: Brief Depression Severity Measure Score 12 05/05/2024 Comments No Sex and Gender Information Value Date Recorded Sex Assigned at Not on file Legal Sex Female 10:17 AM EDT Gender Identity Not on file Sexual Orientation Not on file documented as of this encounter Miscellaneous Notes * Telephone Encounter - Dorene Nguyen RegSched Rep - 01/20/2025 12:01 PM EDT Caller: Ritu Hedrick Relationship: Self Best call back number: [phone] What is the best time to reach you: ANYTIME Who are you requesting to speak with (clinical staff, provider, specific staff member): CLINICAL Do you know the name of the person who called: PATIENT What was the call regarding: PATIENT IS CALLING BACK TO CHECK THE STATUS OF THE VITAMIN D3. CAN IT BE REFILLED? Is it okay if the provider responds through MyChart: NO * Telephone Encounter - Osiris Nova RegSched Rep - 01/18/2025 10:30 AM EDT Caller: Ritu Hedrick Relationship: Self Best call back number: [phone] Requested Prescriptions: Requested Prescriptions Pending Prescriptions Disp Refills Cholecalciferol (Vitamin D3) 50 MCG (1999) tablet 30 tablet Sig: Take by mouth. Pharmacy where request should be sent: [id number] - [address] [facility] & - [phone] - [phone] FX Last office visit with prescribing clinician: 05/05/2024 Last telemedicine visit with prescribing clinician: Visit date not found Next office visit with prescribing clinician: 05/25/2025 Additional details provided by patient: Does the patient have less than a 3 day supply: [x] Yes [] No Would you like a call back once the refill request has been completed: [] Yes [] No If the office needs to give you a call back, can they leave a voicemail: [] Yes [] No Kerry Siddiqui Rep 01/18/25 10:30 EDT documented in this encounter Plan of Treatment Upcoming Encounters Date Type Department Care Team (Late st Contact Info) Description 05/10/2025 11:30 AM EDT Office Visit [facility] RHEUMATOLOGY [address] [phone] Michelle Hahn APRN [address] [address] 05/24/2025 2:30 PM EDT Office Visit [facility] MEDICINE [address] [address] Chad Coughlin MD [address] [address] Scheduled Procedures Name Priority Associated Diagnoses Date/Ti [...] to help you manage your pain. Notes: [place] with Chronic Pain Patient Goals No Karen [...] documented as of this encounter Care Teams Shop Assistant Relationship Specialty Start Date End Date Chad Coughlin MD [address]60 [place] [address] PCP - General Family Medicine 05/06/18 documented as of this encounter
--- OUTSIDE RECORDS SUMMARY | 2025-04-11 22:21 | XMS_ITS | Encounter Summary ---
Author Organization Healthcare Address [address] [place] [address] Care Team Providers Care Assistant Media Planner Name Role Phone Chad Coughlin MD Primary Care Provider [phone] Edgardo Browne MD Unavailable [phone] DMD Unavailable [phone] Kiya Macdonald CLOTHING BUSHELER Unavailable Maria L Gomez Unavailable Unavailable Reason for Referral * Imaging (Urgent) - Authorized Specialty Diagnoses / Procedures Referred By Contac t Referred To Contact Diagnoses Lumbar radiculopathy Chronic bilateral low back pain, unspecified whether sciatica present Degeneration of intervertebral disc of lumbar region with discogenic back pain and lower extremity pain S/P lumbar fusion Urinary incontinence, unspecified type Procedures MR Lumbar Spine wo IV Contrast Kiya Macdonald APRN [address] [place] [address] Phone: tel: fax: Referral ID Status Reason Start Date Expiration Date V isits Requested Visits Authorized [id number] Authorized 04/11/2025 10/11/2026 1 1 Encounter Details Date Type Department Care Team (Late st Contact Info) Description 04/11/2025 Telephone [place] [facility] [address], [address] [place] [address] Alex Alejandre MD [address] [place] [address] Social History Tobacco Use Types Packs/Day Years Used Date Smoking Tobacco: Never Smokeless Tobacco: Never Alcohol Use Standard Drinks/Week Comments No 0 (1 standard drink = 0.6 oz pur e alcohol) PHQ-2 Answer Date Recorded Patient Health Questionnaire-2 Score 0 07/06/2023 CAGE ASSESSMENT Answer Date Recorded Cage unable to access Not on file 03/12/2023 Cage max number of drinks Not on file 2022 Cage Beverages a week Not on file 03/12/2023 Have you ever felt you should CUT down on your d rinking? 0 03/12/2023 Have you been ANNOYED by people criticizing your drinking? 0 03/12/2023 Have you felt GUILTY about your drinking? 0 03/12/2023 Have you had a drink first t juliana in the morning (EYE-SPECIAL SERVICE OFFICER) to steady your nerves or to get rid of a hangover? 0 03/12/2023 CAGE Questionnaire Score 0 023 PHQ-2A Answer Date Recorded Patient Health Questionnaire-2 Score 0 07/06/2023 Comments No Sex and Gender Information Value Date Recorded Sex Assigned at Not on file Legal Sex Female 8:04 PM EDT Gender Identity Not on file Sexual Orientation Not on file documented as of this encounter Miscellaneous Notes * Telephone Encounter - Kiya Macdonald APRN - 04/11/2025 3:32 PM EDT Spoke with patient. Patient having extreme low back pain and leg pain. Patient states that she tried her rheumatoid treatment for several days and this was unhelpful. Patient would like to get updated MRI and be seen again for potential surgical evaluation. We will order this at [facility]. Once that is completed she will contact me. Patient states she has also been having urinary incontinence however she does not to go to the ER. We discussed if it worsens to seek medical attention. * Telephone Encounter - Kristal Farfan - 04/11/2025 1:21 PM EDT Patient Phone Message Reason for Call: Patient is in terrible pain and almost bedridden now. Urinating - loss of control Please call back to discuss. She has held off probably too long Best contact number and optimal time of day to reach caller: [phone] Ritu Note: Please do not reply to this message. Follow-up communication and further actions as a result of this message need to be communicated with the patient directly, if the patient is not active onMyChart. If the patient is active on MyChart, they will receive notification of the communication/outcome via [employer]. documented in this encounter Plan of Treatment Scheduled Orders Name Type Priority Associated Diagnoses Orde r Schedule MR Lumbar Spine wo IV Contrast Imaging STAT Lumbar radiculopathy Chronic bilateral low back pain, unspecified whether sciatica present Degeneration of intervertebral disc of lumbar region with discogenic back pain and lower extremity pain S/P lumbar fusion Urinary incontinence, unspecified type Expected: 04/11/2025 (Approximate), Expires: 10/13/2026 documented as of this encounter Visit Diagnoses Diagnosis Lumbar radiculopathy- Primary Thoracic or lumbosacral neuritis or radiculitis, unspecified Chronic bilateral low back pain, unspecified whether sciatica present Degeneration of intervertebral disc of lumbar region with discogenic back pain and lower extremity pain S/P lumbar fusion Arthrodesis status Urinary incontinence, unspecified type documented in this encounter Additional Health Concerns Assessment Noted Time A fall risk assessment has been complete d for the patient 09/21/2024 10:10 AM EST A Body Mass Index follow-up plan has been documented for the patient 10/01/2024 10:18 PM EST documented as of this encounter Care Teams Assistant Media Planner Relationship Specialty Start Date End Date Chad Coughlin MD PCP - General 03/25/22 Edgardo Browne MD [address] [place] [address] Surgeon Neurosurgery 03/25/22 Hu Belle DMD [address] [facility] [address] [place] [address] Dentist 05/06/22 Kiya Macdonald APRN [address] [facility] [address] [place] [address] Nurse Practitioner Neurosurgery 03/06/23 Maria L Gomez Dental Student Dental [facility] [employer] 01/15/24 documented as of this encounter
--- OUTSIDE RECORDS SUMMARY | 2025-04-11 22:21 | XMS_ITS | Encounter Summary ---
[facility] Address [address] [place] [address] Care Team Providers Care Supervising Librarian Name Role Phone Chad Coughlin MD Primary Care Provi kaitlin Reason for Visit * Reason Onset Date Comments Advice Only 03/01/2025 Encounter Details Date Type Department Care Team (Late st Contact Info) Description 03/01/2025 Telephone [facility] FAMILY MEDICINE [address] [place] [phone] Chad Coughlin MD [address] [place] [id number] Advice Only Social History Tobacco Use Types Packs/Day Years [...] or training? Not on file Preferred Language Danish 04/06/2024 PHQ-2 Answer Date Recorded Retired PHQ-9: Brief Depression Severity Measure Score 12 05/05/2024 Comments No Sex and Gender Information Value Date Recorded Sex Assigned at Not on file Legal Sex Female 10:17 AM EDT Gender Identity Not on file Sexual Orientation Not on file documented as of this encounter Miscellaneous Notes * Telephone Encounter - Luisa Novak MA - 03/01/2025 3:37 PM EDT Left detailed vm. * Telephone Encounter - Chad Coughlin MD - 03/01/2025 3:00 PM EDT I gave her 90 with 1 refill. Will need an appointment for future refills * Telephone Encounter - Luisa Novak MA - 03/01/2025 2:28 PM EDT Denied because she hasn't been here since 04/2024; do you want to refill for 1 month? * Telephone Encounter - Domenica Teran RegSched Rep - 03/01/2025 11:19 AM EDT Provider: MD COUGHLIN Caller: Ritu Hedrick Relationship to Patient: Self Reason for Call: PATIENT WAS DENIED GABAPENTIN REFILL AND SHE WOULD LIKE TO KNOW WHY, SHE IS ENTIRELY OUT OF THIS MEDICATION documented in this encounter Plan of Treatment Upcoming Encounters Date Type Department Care Team (Late st Contact Info) Description 05/10/2025 11:30 AM EDT Office Visit [facility] RHEUMATOLOGY [address] [address] Michelle Hahn APRN [address] [address] 05/24/2025 2:30 PM EDT Office Visit [facility] FAMILY MEDICINE [address] [phone] Chad Coughlin MD [address] [address] Scheduled Procedures Name Priority Associated Diagnoses Date/Ti [...] Manage My Symptoms Patient Goals No Karen Covarrubias, RN Note: Follow Up Date - not [...] to help you manage your pain. Notes: [place] with Chronic Pain Patient Goals No Karen [...] documented as of this encounter Care Teams Supervising Librarian Relationship Specialty Start Date End Date Chad Coughlin MD [address]60 [place] [address] PCP - General Family Medicine 05/06/18 documented as of this encounter
--- OUTSIDE RECORDS SUMMARY | 2025-04-11 22:21 | XMS_ITS | Encounter Summary ---
[facility] Address [address] [place] [address] Care Team Providers Care Internal Medicine Specialist Name Role Phone Chad Coughlin MD Primary Care Provi kaitlin Reason for Visit * Reason Onset Date Comments Med Refill 02/28/2025 Encounter Details Date Type Department Care Team (Late st Contact Info) Description 02/28/2025 Refill [facility] FAMILY MEDICINE [address] [place] [phone] Chad Coughlin MD [address] [place], [place] [phone] Spinal stenosis of lumbar region with neurogenic claudication; Lumbosacral radiculopathy at L5; Status post lumbar spinal fusion Social History Tobacco Use Types Packs/Day Years [...] or training? Not on file Preferred Language Greenlandic 04/06/2024 PHQ-2 Answer Date Recorded Retired PHQ-9: Brief Depression Severity Measure Score 12 05/05/2024 Comments No Sex and Gender Information Value Date Recorded Sex Assigned at Not on file Legal Sex Female 10:17 AM EDT Gender Identity Not on file Sexual Orientation Not on file documented as of this encounter Miscellaneous Notes * Telephone Encounter - Jeronimo Sandoval RegSched Rep - 02/28/2025 10:22 AM EDT Caller: Ritu Hedrick Relationship: Self Best call back number: Requested Prescriptions: Requested Prescriptions Pending Prescriptions Disp Refills gabapentin (NEURONTIN) 600 MG tablet 90 tablet 0 Sig: Take 1 tablet by mouth 3 (Three) Times a Day. Pharmacy where request should be sent: [id number] - [place] [address] [address] [facility] [address] & - [phone] - [phone] FX Last office visit with prescribing clinician: [...] leave a voicemail: [] Yes [x] No PATIENT SAID SHE HAS NOT BEEN TAKING HER VITAMIN D3 AND HER LEGS HAVE BEEN BURNING PLEASE CALL IF SHE NEEDS TO TAKE THIS AGAIN documented in this encounter Plan of Treatment Upcoming Encounters Date Type Department Care Team (Late st Contact Info) Description 05/10/2025 11:30 AM EDT Office Visit [facility] RHEUMATOLOGY [address] [phone] Michelle Hahn APRN [address] [address] 05/24/2025 2:30 PM EDT Office Visit [facility] FAMILY MEDICINE [address] [address] Chad Coughlin MD [address] [address] Scheduled Procedures Name Priority Associated Diagnoses Date/Ti [...] to help you manage your pain. 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
--- OUTSIDE RECORDS SUMMARY | 2025-04-11 22:21 | XMS_ITS | Encounter Summary ---
Author Organization [facility] Address [address] [place] [address] Care Team Providers Care Case Investigator Name Role Phone Chad Coughlin MD Primary Care Provi kaitlin Encounter Details Date Type Department Care Team (Latest Contact Info) Description 03/22/2025 Travel Social History Tobacco Use Types Packs/Day [...] or training? Not on file Preferred Language Albanian 04/06/2024 PHQ-2 Answer Date Recorded Retired PHQ-9: [...] Description 05/10/2025 11:30 AM EDT Office Visit [facility] RHEUMATOLOGY [address] [phone] Michelle Hahn APRN [address] [address] 05/24/2025 2:30 PM EDT Office Visit [facility] FAMILY MEDICINE [address] [phone] Chad Coughlin MD [address] [address] Scheduled Procedures Name Priority Associated Diagnoses Date/Ti [...] to help you manage your pain. Notes: [place] with Chronic Pain Patient Goals No Karen [...] documented as of this encounter Care Teams Case Investigator Relationship Specialty Start Date End Date Chad Coughlin MD 1760 [place] [address] PCP - General Family Medicine 05/06/18 documented as of this encounter
--- OUTSIDE RECORDS SUMMARY | 2025-04-11 22:21 | XMS_ITS | Encounter Summary ---
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 [address] [place] [address] 05/24/2025 2:30 PM EDT Office Visit [facility] FAMILY MEDICINE 1760 [facility] [address] [place] [phone] Chad Coughlin MD 1760 [facility] [address] [place] [address] Scheduled Procedures Name Priority Associated Diagnoses Date/Ti [...] 7:31 PM EDT Other Comment:Discharged from [facility] on 02/21/20 -Merry Bell RN, BSN, CIC [...] as of this encounter Care Teams Internal Revenue Agent Relationship Specialty Start Date End Date Chad Coughlin MD 1760 [facility] [address] [place] [address] PCP - General Family Medicine 05/06/18 documented as of this encounter
--- OUTSIDE RECORDS SUMMARY | 2025-04-11 22:21 | XMS_ITS | Encounter Summary ---
Author [facility] Address [address] [place] [address] Care Team Providers Care Head Sulfide Operator Name Role Phone Chad Coughlin MD Primary Care Provi kaitlin Reason for Visit * Reason Comments Med Refill Encounter Details Date Type Department Care Team (Late st Contact Info) Description 07/31/2023 Refill [facility] FAMILY MEDICINE [address] [place] [phone] Chad Coughlin MD [address] [place], [place] [phone] Spinal stenosis of lumbar region with neurogenic claudication; Lumbosacral radiculopathy at L5; Status post lumbar spinal fusion Social History Tobacco Use Types Packs/Day Years Used Date Smoking Tobacco: Never Smokeless Tobacco: Never Alcohol Use Standard Drinks/Week Comments No 0 (1 standard drink = 0.6 oz pur e alcohol) PHQ-2 Answer Date Recorded Retired PHQ-9: Brief Depression Severity Measure Score 0 11/20/2022 Abuse Screen Answer Date Recorded Feels Unsafe at Home or Work/School no 06/26/2023 Feels Threatened by Someone no 10/2022 Does Anyone Try to Keep You From Having Contact with Others or Doing Things Outside Your Home? no 06/26/2023 Physical Signs of Abuse Present no 06/26/2023 Housing Stability Answer Date Recorded Current Living Arrangements Not on file 04/2023 Potentially Unsafe Housing Conditions Not on demarcus e 06/01/2023 Disabilities Answer Date Recorded Concentrating, Remembering, or Making Decisions Difficulty Not on file 06/01/2023 Doing Errands Independently Difficulty Not on fi le 06/01/2023 Education Answer Date Recorded Help with school or training? Not on file Preferred Language Not on file 06/01/2023 PHQ-2 Answer Date Recorded Retired PHQ-9: Brief Depression Severity Measure Score 0 11/20/2022 Comments No Sex and Gender Information Value Date Recorded Sex Assigned at Not on file Legal Sex Female 10:17 AM EDT Gender Identity Not on file Sexual Orientation Not on file documented as of this encounter Plan of Treatment Upcoming Encounters Date Type Department Care Team (Late st Contact Info) Description 05/10/2025 11:30 AM EDT Office Visit [facility] RHEUMATOLOGY [address] [phone] Michelle Hahn APRN [address] [address] 05/24/2025 2:30 PM EDT Office Visit [facility] FAMILY MEDICINE [address] [phone] Chad Coughlin MD [address] [address] Scheduled Procedures Name Priority Associated Diagnoses Date/Ti [...] documented in this encounter Additional Health Concerns Infection Onset Date Last Indicated Resolved Time COVID (rule out) 09/12/2023 09/12/202309/19/2023 9:08 PM EST COVID Screen (preop/placement) 11/09/2023 11/09/2023 11/09/2023 7:39 PM EDT MRSA 11/09/2023 11/09/2023 documented as of this encounter Care Teams Head Sulfide Operator Relationship Specialty Start Date End Date Chad Coughlin MD [address]60 [place] [address] PCP - General Family Medicine 05/06/18 documented as of this encounter
--- OUTSIDE RECORDS SUMMARY | 2025-04-11 22:21 | XMS_ITS | Clinical Summary ---
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 Activ e methocarbamol (ROBAXIN) 500 MG tabletIndications :Chronic pain of left knee,Left leg weakness Take 1 tablet by mouth 4 (Four) Times a Day. 60 tablet 3 03/01/20 24 Active aspirin 81 MG EC tabletIndications :VTE Prophylaxis Take 1 tablet by mouth Every 12 (Twelve) Hours. Indications: VTE Prophylaxis 04/07/20 24 Active oxyCODONE (ROXICODONE) 10 MG tablet 1 tab QID 05/09/20 24 Active hydroxychloroquin e (PLAQUENIL) 200 MG tablet Take 1 tablet by mouth Daily. 30 tablet 5 05/23/20 24 Active ferrous sulfate 325 (65 FE) MG tablet Take 1 tablet by mouth Daily. 06/14/20 24 Active metoprolol tartrate (LOPRESSOR) 25 MG tablet TAKE 1 TABLET BY MOUTH TWICE A DAY 180 tablet 1 08/15/20 24 Active rOPINIRole (REQUIP) 1 MG tablet Take 1 tablet by mouth Every Night. Take 1 hour before bedtime. 90 tablet 1 01/24/20 25 Active gabapentin (NEURONTIN) 600 MG tabletIndications :Spinal stenosis of lumbar region with neurogenic claudication,Lumb osacral radiculopathy at L5,Status post lumbar spinal fusion Take 1 tablet by mouth 3 (Three) Times a Day. 90 tablet 1 03/01/20 25 Active losartan (COZAAR) 100 MG tablet Take 1 tablet by mouth Daily. 90 tablet 1 03/21/20 25 Active alendronate (FOSAMAX) 70 MG tablet Take 1 tablet by mouth Every 7 (Seven) Days. 4 tablet 11 03/27/20 25 Active fosfomycin (MONUROL) 3 g pack Take 1 packet as needed by oral route as directed for 60 days. 02/21/20 25 Active Magnesium Oxide -Mg Supplement 400 (240 Mg) MG tablet Take 1 tablet by mouth Daily. Active losartan (COZAAR) 100 MG tablet Take 1 tablet by mouth Daily. 05/29/20 24 025 Discontin ued(Reord er) Active Problems Problem Noted Date Diagnosed Date Postmenopause 01/06/2025 Assessment & Plan (01/06/2025 2:47 PM EDT): DEXA ordered today. Orders: DEXA Bone Density Axial; Future Acute postoperative pain 04/06/2024 Acute blood loss anemia, asymptomatic 04/06/2024 S/P TKR (total knee replacement), left 4 Seropositive rheumatoid arthritis 03/16/2024 Assessment & Plan (01/08/2025 10:54 PM EDT): 11/11/23: CCP 99 (0-19), SSA normal, HLA B27 negative, RF 17 (0-14), C4 & C3 normal, DS DNA normal, RAYMOND negative, ANCA panel normal Medication/treatment/interventions tried include: Tylenol, physical therapy, she has seen orthopaedic surgeons, she had back surgery, Tramadol, gabapentin, hydrocodone/APAP, Oxycodone, she has seen pain management specialists, methocarbamol, she has seen neurosurgery, Knee injections, she limits/avoids oral NSAIDS due to mild renal insufficiency, Tizanidine, morphine, duloxetine, knee replacement surgery, hydroxychloroquine- self discontinued She has chronic pain. Her prognosis seems guarded. Follow up in four months Check labs. I believe majority of her pain is coming from her back at this time Assessment & Plan (05/23/2024 12:29 PM EDT): 11/11/23: CCP 99 (0-19), SSA normal, HLA B27 negative, RF 17 (0-14), C4 & C3 normal, DS DNA normal, RAYMOND negative, ANCA panel normal Medication/treatment/interventions tried include: Tylenol, physical therapy, she has seen orthopaedic surgeons, she had back surgery, Tramadol, gabapentin, hydrocodone/APAP, Oxycodone, she has seen pain management specialists, methocarbamol, she has seen neurosurgery, Knee injections, she limits/avoids oral NSAIDS due to mild renal insufficiency, Tizanidine, morphine, duloxetine, knee replacement surgery She has chronic pain. Her prognosis seems guarded. Follow up in four months We gave her a handout on RA to take home and review Check labs. Start hydroxychloroquine 200 mg PO once/day. Risks and benefits reviewed. Assessment & Plan (03/16/2024 11:07 AM EDT): 11/11/23: CCP 99 (0-19), SSA normal, HLA B27 negative, RF 17 (0-14), C4 & C3 normal, DS DNA normal, RAYMOND negative, ANCA panel normal Medication/treatment/interventions tried include: Tylenol, physical therapy, she has seen orthopaedic surgeons, she had back surgery, Tramadol, gabapentin, hydrocodone/APAP, Oxycodone, she has seen pain management specialists, methocarbamol, she has seen neurosurgery, Knee injections, she limits/avoids oral NSAIDS due to mild renal insufficiency, Tizanidine, morphine She is planning on having knee and back surgery soon. We will hold off on starting immunosuppressive medication until she has had and recovered from these procedures. Check labs Follow up in 2-3 months We gave her a handout on RA to take home and review High risk medication use 03/16/2024 Assessment & Plan (01/08/2025 10:54 PM EDT): Hydroxychloroquine 200 mg PO once/day for RA Started 05/23/24 - stopped after 1 month. Patient's taking hydroxychloroquine should have an eye exam at least once/year to monitor for signs of medication toxicity Assessment & Plan (05/23/2024 11:59 AM EDT): Hydroxychloroquine 200 mg PO once/day for RA Started 05/23/24 Patient's taking hydroxychloroquine should have an eye exam at least once/year to monitor for signs of medication toxicity Assessment & Plan (03/16/2024 11:07 AM EDT): We will hold off on starting DMARD therapy because she is planning on having knee and back surgery soon. We would hold these medications perioperatively due to the increased risk of infection associated with this medications. After she recovers from surgery we will look at starting her on something like hydroxychloroquine. Primary osteoarthritis involving multiple joints 03/16/2024 Assessment & Plan (01/06/2025 2:47 PM EDT): Tylenol PRN is ok as directed She limits/avoids oral NSAIDS due to renal disease She has done some physical therapy She has seen orthopaedic surgeons She has had knee replacement surgery She has seen pain management specialists She has had knee injection She has had back surgery. She reports she may have to have another back surgery later on down the line. She has seen neurosurgeons She has taken muscle relaxer's like methocarbamol She has taken gabapentin for neuropathic pain She has taken hydrocodone/APAP PRN She has taken Oxycodone PRN She has taken Tramadol She is allergic/intolerant of morphine. Orders: Ambulatory Referral to Pediatric Physical Therapy for Evaluation & Treatment Assessment & Plan (05/23/2024 12:23 PM EDT): Tylenol PRN is ok as directed She limits/avoids oral NSAIDS due to renal disease She has done some physical therapy She has seen orthopaedic surgeons She has had knee replacement surgery She has seen pain management specialists She has had knee injection She has had back surgery. She reports she may have to have another back surgery later on down the line. She has seen neurosurgeons She has taken muscle relaxer's like methocarbamol She has taken gabapentin for neuropathic pain She has taken hydrocodone/APAP PRN She has taken Oxycodone PRN She has taken Tramadol She is allergic/intolerant of morphine. Assessment & Plan (03/16/2024 11:07 AM EDT): Tylenol PRN is ok as directed She limits/avoids oral NSAIDS due to renal disease She has done some physical therapy She has seen orthopaedic surgeons She is planning to have knee replacement surgery next month. She has seen pain management specialists She has had knee injection She has had back surgery She has seen neurosurgeons She has taken muscle relaxer's like methocarbamol She has taken gabapentin for neuropathic pain She has taken hydrocodone/APAP PRN She has taken Oxycodone PRN She has taken Tramadol She is allergic/intolerant of morphine. Fibromyalgia 03/16/2024 Assessment & Plan (01/06/2025 2:47 PM EDT): 1. H & P consistent with this diagnosis. 2. Encourage aerobic activity and sleep hygiene. 3. If she has not had a sleep study/consultation consider getting this done. 4. Tylenol PRN is ok directed 5. She has done physical therapy 6. She was intolerant of Tramadol 7. She limits/avoids oral NSAIDS due to renal insufficiency 8. She has taken muscle relaxer's PRN 9. She has taken gabapentin for neuropathic pain 10. She has taken hydrocodone/APAP PRN 11. She has taken Oxycodone PRN 12. She has seen pain management specialists 13. She is allergic/intolerant of morphine 14. We have prescribed her duloxetine. She is not taking it. She reports it made her dizzy. Assessment & Plan (05/23/2024 12:23 PM EDT): 1. H & P consistent with this diagnosis. 2. Encourage aerobic activity and sleep hygiene. 3. If she has not had a sleep study/consultation consider getting this done. 4. Tylenol PRN is ok directed 5. She has done physical therapy 6. She was intolerant of Tramadol 7. She limits/avoids oral NSAIDS due to renal insufficiency 8. She has taken muscle relaxer's PRN 9. She has taken gabapentin for neuropathic pain 10. She has taken hydrocodone/APAP PRN 11. She has taken Oxycodone PRN 12. She has seen pain management specialists 13. She is allergic/intolerant of morphine 14. We have prescribed her duloxetine. She is not taking it. She reports it made her dizzy. Assessment & Plan (03/16/2024 11:07 AM EDT): 1. H & P consistent with this diagnosis. 2. Encourage aerobic activity and sleep hygiene. 3. If she has not had a sleep study/consultation consider getting this done. 4. Tylenol PRN is ok directed 5. She has done physical therapy 6. She was intolerant of Tramadol 7. She limits/avoids oral NSAIDS due to renal insufficiency 8. She has taken muscle relaxer's PRN 9. She has taken gabapentin for neuropathic pain 10. She has taken hydrocodone/APAP PRN 11. She has taken Oxycodone PRN 12. She has seen pain management specialists 13. She is allergic/intolerant of morphine 14. Today we will try adding duloxetine 30 mg PO once/day. Risks and benefits reviewed. Degenerative arthritis of left knee 02/12/2024 Urticaria, acute 11/09/2023 Bilateral stenosis of lateral recess of lumbar s pine 03/12/2023 Lumbar radicular pain 07/10/2022 Lumbar postlaminectomy syndrome 05/16/2021 Left leg pain 05/08/2020 Arthritis 2020 Lumbar stenosis with neurogenic claudication 10/2019 Urinary tract infection in elderly patient 02/21 Acute urinary retention 02/22/2020 Sciatica of right side 02/09/2020 Dural tear 01/30/2020 Herniated intervertebral disc of lumbar spine Back pain 01/23/2020 s/p right L4-L5 lumbar laminectomy 01/23/2020 Essential hypertension 01/23/2020 Intractable low back pain 01/23/2020 Decreased ambulation status 01/23/2020 Overview (01/24/2020): Added automatically from request for surgery [id number] Degeneration of lumbar or lumbosacral interverte bral disc 01/09/2020 HNP (herniated nucleus pulposus), lumbar 020 Chronic right-sided low back pain with right-madie ed sciatica 01/09/2020 Vitamin D deficiency 03/30/2019 Stage 3a chronic kidney disease 03/30/2019 Nausea & vomiting 04/08/2018 JOSÉ MIGUEL (acute kidney injury) 04/08/2018 Dehydration 04/08/2018 Transaminitis 04/08/2018 Generalized weakness 04/08/2018 Disorder of skin 06/05/2016 Disorder of skin 06/05/2016 Overview (04/16/2023): From Automated Load;Provider: Barbara Ball;Status: Active Back pain 04/25/2016 DDD (degenerative disc disease), lumbar 04/25/20 16 Facet hypertrophy of lumbar region 04/25/2016 Senile hyperkeratosis 10/02/2015 Melanocytic nevus of lower extremity 10/02/2015 Lentigo 10/02/2015 Melanocytic nevus of lower extremity 10/02/2015 Overview (04/16/2023): From Automated Load;Provider: Barbara Ball;Status: Active Senile hyperkeratosis 10/02/2015 Overview (04/16/2023): From Automated Load;Provider: Barbara Ball;Status: Active Encounters Date Type Department Care Team Description 04/07/2025 11:45 AM EDT Ancillary Procedure [facility] [address] [facility] [address] [place] [address] 04/07/2025 10:50 AM EDT Office Visit [facility] [address] [facility] [address] [place] [address] Ronn Gerber MD S/P TKR (total knee replacement), left (Primary Dx); Postoperative examination 04/07/2025 Travel 03/28/[address] [facility] [address] [address] Michelle Hahn APRN Bone Density Scan 03/22/2025 1:58 PM EDT - 03/22/2025 11:59 PM EDT Hospital Encounter [facility] [address] [place] [id number] Michelle Hahn APRN Postmenopause Discharge Disposition: Home or Self Care 03/22/2025 Travel 03/21/[address] [facility] [address] [facility] [address] [place] [address] Chad Coughlin MD 03/01/[address] [facility] [address] [facility] [address] [place] [address] Chad Coughlin MD Advice Only 02/28/[address] [facility] [address] [facility] [address] [place] [address] Chad Coughlin MD Spinal stenosis of lumbar region with neurogenic claudication; Lumbosacral radiculopathy at L5; Status post lumbar spinal fusion 01/20/[address] [facility] [address] [facility] [address] [place] [address] Chad Coughlin MD 01/20/[address] [facility] [address] [facility] [address] [place] [address] Chad Coughlin MD Spinal stenosis of lumbar region with neurogenic claudication; Lumbosacral radiculopathy at L5; Status post lumbar spinal fusion 01/18/[address] [facility] [address] [facility] [address] [place] [address] Chad Coughlin MD 01/18/[address] [facility] [address] [facility] [address] [place] [address] Chad Coughlin MD Spinal stenosis of lumbar region with neurogenic claudication; Lumbosacral radiculopathy at L5; Status post lumbar spinal fusion 01/09/2025 Results Follow-Up [facility] [address] [address] Michelle Hahn APRN from Last 3 Months Immunizations Immunization Administration Dates Next Due COVID-19 (MODERNA) 1st,2nd,3 rd Dose Monovalent 10/26/2020,09/27/2020 COVID-19 (MODERNA) BIVALENT 12+YRS 06/11/2022 COVID-19 (MODERNA) Monovalen t Original Booster 06/19/2021 COVID-19 (UNSPECIFIED) 04/24/2023,2020,10/26/2020,09/27 DTaP / Hep B / IPV 05/31/1997 FLUAD TRI 65YR+ 06/13/2019,06/11/2017 Fluad Quad 65+ 07/10/2023,06/06/2020 Fluzone High-Dose 65+YRS 05/05/2018,06/11/2017,1 Fluzone High-Dose 65+yrs 06/16/2022,05/23/2021 Hepatitis A 04/07/2019,09/23/2018 Hepatitis B 01/02/1998,07/05/1997 Hepatitis B Adolescent High Risk Infant 05/31/1997 Hepatitis B Adult/Adolescent IM 05/31/1997 Pneumococcal Conjugate 13-Va lent (PCV13) 05/26/2016 Pneumococcal Polysaccharide (PPSV23) 06/11/2017 Shingrix 07/24/2019,01/22/2019 Family History Medical History Relation Name Comments Lung disease Father Alzheimer's disease Mother Relation Name Status Comments Father Mother Social History Tobacco Use Types Packs/Day Years [...] or training? Not on file Preferred Language Italian 04/06/2024 PHQ-2 Answer Date Recorded Retired PHQ-9: Brief Depression Severity Measure Score 12 05/05/2024 Comments No Sex and Gender Information Value Date Recorded Sex Assigned at Not on file Legal Sex Female 10:17 AM EDT Gender Identity Not on file Sexual Orientation Not on file Last Filed Vital Signs Vital Sign Reading Time Taken Comments Blood Pressure 116/74 04/07/2025 11:20 AM EDT Pulse 83 01/06/2025 1:36 PM EDT Temperature 35.9 C (96.7 F) 01/06/2025 1:36 PM EDT Respiratory Rate 16 05/05/2024 2:11 PM EDT Oxygen Saturation 97% 05/05/2024 2:11 PM EDT Inhaled Oxygen Concentration - - Weight 76.4 kg (168 lb 8 oz) 04/07/2025 11:20 AM EDT Height 152.4 cm (5') 04/07/2025 11:20 AM EDT Body Mass Index 32.91 04/07/2025 11:20 AM EDT Plan of Treatment Upcoming Encounters Date Type Department Care Team (Late st Contact Info) Description 05/10/2025 11:30 AM EDT Office Visit [facility] [address] [facility] [address] [place] [phone] Michelle Hahn APRN [address] [facility] [address] [place], [place] [id number] 05/24/2025 2:30 PM EDT Office Visit [facility] [address] [facility] [address] [place] [address] Chad Coughlin MD [address] [facility] [address] [place], [place] [phone] Scheduled Procedures Name Priority Associated Diagnoses Date/Ti me CV IR MYELOGRAM, LUMBAR Lumbar stenosis with neurogenic claudication Facet hypertrophy of lumbar region Degeneration of lumbar or lumbosacral intervertebral disc DDD (degenerative disc disease), lumbar Lumbar radicular pain S/P lumbar laminectomy Sciatica of right side Lumbar postlaminectomy syndrome Intractable low back pain Generalized weakness Health Maintenance Due Date Last Done Comments COLOGUARD 1986 COLON CANCER SCREENING 5 YEA R SIGMOIDOSCOPY 1986 CT COLONOGRAPHY 1986 FECAL OCCULT BLOOD TEST 1986 FIT Testing (1 year) 1986 RSV Vaccine - Adults (1 - 1- dose 75+ series) 2016 COVID-19 Vaccine ( season) 2024 06/21/2024, 04/24/2023, 06/11/2022, Additional history exists ANNUAL WELLNESS VISIT 05/05/2025 05/05/2024 , 11/20/2022, 05/29/2020, Additional history exists INFLUENZA VACCINE 05/24/2025 06/21/2024, , 06/21/2024, Additional history exists COLONOSCOPY 07/25/2025 07/25/2022, 09/2021, 05/11/2017, Additional history exists COLORECTAL CANCER SCREENING 07/25/2025 MAMMOGRAM 06/09/2026 06/09/2024, 05/24, 06/07/2024, Additional history exists DXA SCAN 03/22/2027 03/22/2025, 12/20/2020 TDAP/TD VACCINES (2 - Td or Tdap) 03/08/2035 Pneumococcal Vaccine 50+ Completed 025, 06/11/2017, 05/26/2016 ZOSTER VACCINE Discontinued 03/08/2025, 08/2018, 01/22/2019 Goals Goal Patient Goal Type Associated Problems [...] to help you manage your pain. Notes: [place] with Chronic Pain Patient Goals No Karen [...] Plan Autogenerated Problem No Ronn Gerber MD Medical Devices Implanted Type Area Fire Ranger Device Identifier Shelf Expiration Date Model / Serial / Lot Kt Matrx Floseal Hemo Fast Prep 10ml - [id number] Implanted:Qty: 1 on 01/20/2020 by Pacheco Tenorio MD at [facility] Implant [facility] [id number] 09/18/2020 [id number] / / [id number] Kt Matrx Floseal Hemo Fast Prep 10ml - [id number] Implanted:Qty: 1 on 01/27/2020 by Pacheco Tenorio MD at [facility] Implant N/A: Spine Lumbar [facility] [id number] / / [id number] Duragen Pls 1x3in Ea/5 - [id number] Implanted:Qty: 1 on 01/27/2020 by Pacheco Tenorio MD at [facility] Implant N/A: Spine Lumbar [employer] 04/23/2022 [id number] / / [id number] Insrt Art/Kn Legion Cr Hf Xlpe Sz3to4 12mm - [id number] Implanted:Qty: 1 on 04/05/2024 by Ronn Gerber MD at [facility] Implant Left: Knee [employer] [id number] 03/13/2033 [id number] / / [id number] Totl Kn William Kaur Nephew - [id number] Implanted:Qty: 1 on 04/05/2024 by Ronn Gerber MD at [facility] Implant Left: Knee K[employer]W CAPKNEETOT [id number] / / Dev Contrl Tiss Stratafix Spiral Mncryl Ud 3/0 Pls 60cm - [id number] Implanted:Qty: 1 on 04/05/2024 by Ronn Gerber MD at [facility] Implant Left: Knee [employer] J AND J 09/23/2025 [id number] / / [id number] Dev Contrl Tiss Stratafix Symm Pds Plus Jamie Ct-1 45cm - [id number] Implanted:Qty: 1 on 04/05/2024 by Ronn Gerber MD at [facility] Implant Left: Knee [employer] DIV OF J AND J 08/23/2025 [id number] / / [id number] Cmt Bone Palacos R Hi/Visc 1x40 - [id number] Implanted:Qty: 2 on 04/05/2024 by Ronn Gerber MD at [facility] Implant Left: Knee IntraOp [employer] 07/23/2028 [id number] / / [id number] Base Tib/Kn Gen2 Nonpor Ti Sz3 Lt - [id number] Implanted:Qty: 1 on 04/05/2024 by Ronn Gerber MD at [facility] Implant Left: Knee [employer] [id number] 09/15/2033 [id number] / / [id number] Patella Resrf Gen2 7.5x32mm - [id number] Implanted:Qty: 1 on 04/05/2024 by Ronn Gerber MD at [facility] Implant Left: Knee [employer] [id number] 09/27/2033 [id number] / / [id number] Comp Fem Legion Oxinium Cr Nrw Sz5 Lt - [id number] Implanted:Qty: 1 on 04/05/2024 by Ronn Gerber MD at [facility] Implant Left: Knee [employer] [id number] 10/09/2033 [id number] / / [id number] Procedures Procedure Name Priority Date/Time Associated Diagnosis Comments XR KNEE 3+ VW W SUNRISE LEFT Routine 04/07/2025 11:57 AM EDT S/P TKR (total knee replacement), left DEXA BONE DENSITY AXIAL Routine 03/22/2025 2:19 PM EDT Postmenopause SCANNED - MAMMO 06/09/2024 SCANNED - COLONOSCOPY 07/25/2022 from Last 3 Months or Most Recently Relevant to Health Maintenance Results * XR Knee 3+ View With [place] Left (04/07/2025 11:57 AM EDT) Anatomical Region Laterality Modality Lower Extremities, [facility]nee [facility] N[facility]ative 04/07/2025 12:13 PM EDT Left Knee Radiographs Indication: status-post left total knee arthroplasty Views: AP, lateral, and sunrise views of the left knee Comparison: no change compared to prior study, 05/06/2024 Findings: The components are well aligned, with no signs of loosening or failure. Ronn Gerber MD IMG DIAGNOSTIC IMAGING ORDERAB LES Final Result * DEXA Bone Density Axial (03/22/2025 2:19 [...] fall-prevention measurements. The National Osteoporosis Foundation recommends (http://www.nof.org/hcp/practice/ghgqnbqm-xhe-qtodjvpj-guidelines/clinicians-omi de) that FDA-approved medical therapies be considered [...] the left hip with 95% confidence is 0.553390 gm/cm2 at the hip and 0.650367 g/cm2 at the lumbar spine. Report dictated by: Renata Huynh PA-c I have personally reviewed this case and agree with the findings above: Electronically Signed: Edwardo Pathak MD 03/22/2025 5:00 PM EDT Workstation ID: [id number] Narrative 03/22/2025 5:00 PM EDT DUAL-ENERGY X-RAY [...] normal patients. According to criteria established by theWorld Health Organization, patients with T-scores between 1.0 [...] exercises and fall-prevention measurements. The NationalOsteoporosis Foundation recommends(http://www.nof.org/hcp/practice/pfbbmcnz-vxk-yeykkcah-guidelines/clin ician s-guide) that FDA-approved medical therapies be [...] at the left hipwith 95% confidence is 0.895916 gm/cm2 at the hip and 0.580511 g/cm2 atthe lumbar spine. 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 IMG DXA ORDERABLES Final Re sult * MAMMO Scan (06/09/2024) Anatomical Region Laterality Modality Other Sha Crowe Jr., MD CHART REVIEW TA Final Result * SCANNED - COLONOSCOPY (07/25/2022) [facility] CHART REVIEW TABS Final Re sult from Last 3 Months or Most Recently Relevant to Health Maintenance Additional Health Concerns Active Problems Noted Date Diagnosed Date Autogenerated Problem 01/31/2025 Infection Onset Date 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 11/09/2023 Insurance MEDICARE A & B Member Subscriber Plan / Payer (Ef fective 2006-Present) Name:Ritu Hedrick Member ID:[id number] Relation to Subscriber:Self Name:Ritu Hedrick Subscriber ID:[id number] Payer ID:[id number] Group ID:Not on file Type:Not on file Address: [facility] [id number] [address] [employer] [facility] Advance Directives Documents on File Type Date Recorded 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 LIVING WILL - SCAN 04/13/2018 8:41 AM SYEDA NG WILL 04/09/2018 * CPR (Attempt to Resuscitate) (Latest Code Status on File) Date Activated Date Inactivated Comments 04/05/2024 5:23 PM 04/07/2024 4:28 PM Question Answer Comments Code Status (Patient has no pulse and is not breathing): CPR (Attempt to Resuscitate) Medical Interventions (Patie nt has pulse or is breathing): Full Support * CPR (Attempt to Resuscitate) Date Activated Date Inactivated Comments 11/09/2023 8:51 PM 11/11/2023 5:18 PM Question Answer Comments Code Status (Patient has no pulse and is not breathing): CPR (Attempt to Resuscitate) Medical Interventions (Patie nt has pulse or is breathing): Full Support * CPR (Attempt to Resuscitate) Date Activated Date Inactivated Comments 02/22/2020 9:42 PM 02/27/2020 2:38 PM Question Answer Comments Code Status (Patient has no pulse and is not breathing): CPR (Attempt to Resuscitate) Medical Interventions (Patie nt has pulse or is breathing): Full Level Of Support Discussed With: Patient * CPR (Attempt to Resuscitate) Date Activated Date Inactivated Comments 01/27/2020 7:40 PM 02/02/2020 4:36 PM Question Answer Comments Code Status (Patient has no pulse and is not breathing): CPR (Attempt to Resuscitate) Medical Interventions (Patie nt has pulse or is breathing): Full Level Of Support Discussed With: Patient * CPR (Attempt to Resuscitate) Date Activated Date Inactivated Comments 01/27/2020 7:40 PM 01/27/2020 7:40 PM Question Answer Comments Code Status (Patient has no pulse and is not breathing): CPR (Attempt to Resuscitate) Medical Interventions (Patie nt has pulse or is breathing): Full Level Of Support Discussed With: Patient Care Teams Catalyst Recovery Operator Relationship Specialty Start Date End Date Chad Coughlin MD 1760 [facility] [address] [place] [address] PCP - General Family Medicine 05/06/18
--- OUTSIDE RECORDS SUMMARY | 2025-04-11 22:21 | XMS_ITS | Encounter Summary ---
[facility] Address [address] [place] [address] Care Team Providers Care Naval Inspector Name Role Phone Chad Coughlin MD Primary Care Provi kaitlin Encounter Details Date Type Department Care Team (Late st Contact Info) Description 01/09/2025 Results Follow-Up [facility] RHEUMATOLOGY 330 [facility] 100 [place] [address] Michelle Hahn APRN [address] [place] [id number] Social History Tobacco Use Types Packs/Day Years [...] or training? Not on file Preferred Language Yoruba 04/06/2024 PHQ-2 Answer Date Recorded Retired PHQ-9: [...] Description 05/10/2025 11:30 AM EDT Office Visit [facility] RHEUMATOLOGY [address] [address] Michelle Hahn APRN [address] [address] 05/24/2025 2:30 PM EDT Office Visit [facility] FAMILY MEDICINE [address] [address] Chad Coughlin MD [address] [address] Scheduled Procedures Name Priority Associated Diagnoses Date/Ti [...] to help you manage your pain. Notes: [place] with Chronic Pain Patient Goals No Karen [...] documented as of this encounter Care Teams Naval Inspector Relationship Specialty Start Date End Date Chad Coughlin MD [address] [place] [address] PCP - General Family Medicine 05/06/18 documented as of this encounter
--- OUTSIDE RECORDS SUMMARY | 2025-04-11 22:21 | XMS_ITS | Clinical Summary ---
Author Organization [facility] Address [address] [place] [address] Care Team Providers Care Finish Saw Operator Name Role Phone Chad Coughlin MD Primary Care Provider [phone] Edgardo Browne MD Unavailable [phone] Hu Belle DMD Unavailable [phone] Kiya Macdonald INORGANIC CHEMICAL TECHNICIAN Unavailable [phone] Maria L Gomez Unavailable Unavailable Allergies Active Allergy Reactions Criticality Noted Date Comments Doxycycline Other - please document in the comment field,Unknown - Patient states they do not know rxn details Low 07/22/2023 Ketorolac Tromethamine Hives Medium 03/22/2024 Morphine Anxiety,Hallucinatio ns Medium 01/17/2020 Tizanidine Other - please document in the comment field Low 02/21/2023 Kidney disease Other reaction(s): Other (See Comments) Kidney disease Tramadol Other - please document in the comment field Low 02/21/2023 Makes legs restless Other reaction(s): Other (See Comments) Makes legs restless Medications ergocalciferol (Vitamin D-2) 1.25 MG (99790 UT) capsule Take by mouth 1 (one) time per week. Active aspirin 81 MG EC tablet Take 1 tablet (81 mg) by mouth 1 (one) time each day. Please do not take aspirin for 2 weeks following your surgery. 3 Active gabapentin (Neurontin) 400 MG capsule Take 3 capsules (1,200 mg) by mouth every night. 90 capsule 3 Active rOPINIRole (Requip) 0.5 MG tabletIndicatio ns:Restless Leg Syndrome Take 1 tablet (0.5 mg) by mouth every night. 30 tablet 11 3 Active gabapentin (Neurontin) 600 MG tablet 3 Active rOPINIRole (Requip) 1 MG tablet 4 Active oxyCODONE (Roxicodone) 10 MG immediate release tablet 4 Active ferrous sulfate 325 (65 Fe) MG tablet Take 1 tablet (325 mg) by mouth 1 (one) time each day. 4 Active methocarbamol (Robaxin) 500 MG tablet 4 Active metoprolol tartrate (Lopressor) 25 MG tablet Take 1 tablet (25 mg) by mouth twice a day. 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 pine 03/12/2023 Lumbar radicular pain 07/10/2022 Back pain 04/25/2016 DDD (degenerative disc disease), lumbar 04/25/20 16 Facet hypertrophy of lumbar region 04/25/2016 Encounters Date Type Department Care Team Description 04/11/2025 Telephone [facility] [address] [place] [address] Alex Alejandre MD from Last 3 Months Family History Medical History Relation Name Comments Anesthesia problems Neg Hx Malig Hyperthermia Neg Hx Social History Tobacco Use Types Packs/Day Years [...] drink first t juliana in the morning (EYE-DIRECTOR OF GLOBAL TALENT) to steady your nerves or to get [...] Sign Reading Time Taken Comments Blood Pressure 130/80 09/21/2024 10:03 AM EST Pulse 81 03/24/2024 3:58 PM EDT Temperature 36.2 C (97.1 F) 02/08/2024 1:47 PM EDT Respiratory Rate 16 02/08/2024 1:47 PM EDT Oxygen Saturation 98% 01/06/2024 3:03 PM EDT Inhaled Oxygen Concentration - - Weight 74.4 kg (164 lb) 09/21/2024 10:03 AM EST Height 160 cm (5' 3 ) 09/21/2024 10:03 AM EST Body Mass Index 29.05 09/21/2024 10:03 AM EST Plan of Treatment Health Maintenance Due Date Last Done Comments Dental X-Ray: Full Mouth 1941 [facility]-/Child/Adol SDOH Screenings 1941 [facility]- SDOH Screenings 1959 [facility]-Adult SDOH Screenings 1959 [facility]-IPV Vaccines (2 of 3 - Adult catch-up series) 06/28/1997 05/31/1997 [facility]-DTaP,Tdap,and Td Vaccines (2 - Tdap) 05/31/2007 05/31/1997 [facility]-Bone Density Scan 12/20/2022 12/20/2020, 021 Dental X-Ray: Bitewings 06/24/2024 06/23/2023 [facility]-Depression Screening 07/06/2024 07/06/2023 Dental Oral Exam 09/25/2024 03/24/2024, , 12/09/2022, Additional history exists Dental Prophylaxis 09/25/2024 03/24/2024, 1 , 12/09/2022, Additional history exists SUJ-DLWTC-30 Vaccine (2023- season) 2024 06/21/2024, 06/11/2022, 06/19/2021, Additional history exists [facility]-Influenza Vaccine (#1) 04/24/202506/21, 07/10/2023, 06/16/2022, Additional history exists [facility]-Medicare Annual Wellness (AWV) 05/05/2025 05/05/2024, 11/20/2022, 05/29/2020, Additional history exists [facility]-Pneumococcal Vaccine: 50+ Years Completed 06/11/2017, 05/26/2016 [facility]-Hepatitis A Vaccines Aged Out 04/07/2019, 08/26 No longer eligible based on patient's age to complete this topic [facility]-Zoster Vaccines Completed 07/24/2019, 9 [facility]-RSV Vaccine: 60+ Years or Completed 06/21/2024 [facility]-Obesity Intervention Completed 025, 03/24/2024, 02/08/2024, Additional history exists HPV Vaccines Aged Out No longer eligi ble based on patient's age to complete this topic [facility]-HIB Vaccines Aged Out No longer e ligible based on patient's age to complete this topic [facility]-Rotavirus Vaccines Aged Out No lo nger eligible based on patient's age to complete this topic Medical Devices Implanted Type Area Ip Litigation Paralegal Device Identifier Shelf Expiration Date Model / Serial / Lot Miki Enamorado [id number] Jessica [id number] 5 Dg - [id number] Implanted:Qty : 1 on 03/12/2023 by Alex Alejandre MD at [facility] N/A: Spine Lumbar DePuy Spine [employer] [id number] 05/27/2027 [id number] / / [id number] Screw 5.5mm Viper Ti Fen Crtcl Polyax 7mm X 40mm - [id number] Implanted:Qty : 1 on 03/12/2023 by Alex Alejandre MD at [facility] N/A: Spine Lumbar DePuy Spine [employer] [id number] 03/12/2023 [id number] / / Screw 5.5mm Viper Ti Fen Crtcl Polyax 7mm X 45mm - [id number] Implanted:Qty : 3 on 03/12/2023 by Alex Alejandre MD at [facility] N/A: Spine Lumbar DePuy Spine [employer] [id number] 03/12/2023 [id number] / / Single Inner Setscrew - [id number] Implanted:Qty : 4 on 03/12/2023 by Alex Alejandre MD at [facility] N/A: Spine Lumbar DePuy Spine [employer] [id number] 03/12/2023 [id number] / / Pre-Lordosed Jarek W/ Line 45mm - [id number] Implanted:Qty : 2 on 03/12/2023 by Alex Alejandre MD at [facility] N/A: Spine Lumbar DePuy Spine Sales [id number] 03/12/2023 [id number] / / Procedures Procedure Name Priority Date/Time Associated Diagnosis Comments PROPHYLAXIS - ADULT Routine 03/24/2024 4 :00 PM EDT Dental calculus PERIODIC ORAL EVALUATION - ESTABLISHED PATIENT Routine 03/24/2024 4:00 PM EDT Dental calculus BITEWINGS - 4 RADIOGRAPHIC IMAGES Routine 06/23/2023 1:00 PM EDT Dental calculus from Last 3 Months or Most Recently Relevant to Health Maintenance Insurance MEDICARE HUMANA DENTAL HMO AETNA Advance Directives * Full Code (Latest Code Status on File) Date Activated Date Inactivated Comments 03/16/2023 1:08 PM * Full Code Date Activated Date Inactivated Comments 03/12/2023 9:50 AM 03/16/2023 1:08 PM Question Answer Comments Patient has decision-making capacity? Yes Care Teams Finish Saw Operator Relationship Specialty Start Date End Date Chad Couglhin MD PCP - General 03/25/22 Edgardo Browne MD [address] [place] [address] Surgeon Neurosurgery 03/25/22 Hu Belle DMD [address] [place] [address] Dentist 05/06/22 Kiya Macdonald APRN [address] [place] [address] Nurse Practitioner Neurosurgery 03/06/23 Maria L Gomez Dental Student Dental Garment Sewing Machine Operator 01/15/24
--- OUTSIDE RECORDS SUMMARY | 2025-04-11 22:22 | XMS_ITS | Encounter Summary ---
[facility] Address [address] [place] [address] Care Team Providers Care Wicker Molded Candles Name Role Phone Chad Coughlin MD Primary Care Provi kaitlin Reason for Visit * Reason Onset Date Comments - MEDICATION 04/26/2024 Encounter Details Date Type Department Care Team (Late st Contact Info) Description 04/26/2024 Telephone [facility]INE [address] [place] [address] Ronn Gerber MD [address] [place] [address] - MEDICATION Social History Tobacco Use Types Packs/Day Years [...] or training? Not on file Preferred Language Omani 04/06/2024 PHQ-2 Answer Date Recorded Retired PHQ-9: Brief Depression Severity Measure Score 0 03/01/2024 Comments No Sex and Gender Information Value Date Recorded Sex Assigned at Not on file Legal Sex Female 10:17 AM EDT Gender Identity Not on file Sexual Orientation Not on file documented as of this encounter Miscellaneous Notes * Telephone Encounter - Lynnette Gray R.T.(Med) - 04/26/2024 3:42 PM EDT I called and left a message and let her know that she is released to get pain meds from her pain management doctor. Lynnette * Telephone Encounter - Lynnette Gray R.T.(Med) - 04/26/2024 9:21 AM EDT I called and spoke with Ms. Hedrick she is having a lot of pain. She had TKA (L) 04/05/24. She states that the Percocet 7 every 8 hours is not enough. She states that to have her pain controlled she needs Percocet 10 every 4 hours. She can not go to her pain management doctor until Dr. Gerber releases her. She is requesting more pain medication. Please advise. Thanks. Church * Telephone Encounter - Pearl Casas RegSched Rep - 04/26/2024 8:21 AM EDT Hub staff attempted to follow warm transfer process and was unsuccessful Caller: Ritu Hedrick Relationship to patient: Self Best call back number: [phone] Patient is needing: PAIN MANAGEMENT WON'T FILL PAIN MEDS UNLESS DR. GERBER RELEASES HER - PLEASE REACH OUT AND ADVISE SHE IS TOTALLY OUT - IN A LOT OF PAIN documented in this encounter Plan of Treatment Upcoming Encounters Date Type Department Care Team (Late st Contact Info) Description 05/10/2025 11:30 AM EDT Office Visit [facility] RHEUMATOLOGY [address] [address] Michelle Hahn APRN [address] [address] 05/24/2025 2:30 PM EDT Office Visit [facility] FAMILY MEDICINE [address] [phone] [place] [address] [place] [address] Scheduled Procedures Name Priority Associated Diagnoses Date/Ti [...] and Manage My Symptoms Patient Goals No Marci, Karen, RN Note: Follow Up Date - not [...] to help you manage your pain. Notes: [place] with Chronic Pain Patient Goals No Karen [...] documented as of this encounter Care Teams Wicker Molded Candles Relationship Specialty Start Date End Date Chad Coughlin MD [address]60 [place] [address] PCP - General Family Medicine 05/06/18 documented as of this encounter
--- OUTSIDE RECORDS SUMMARY | 2025-04-11 22:22 | XMS_ITS | Encounter Summary ---
Author Organization [facility] Address [address] [place] [address] Care Team Providers Care Office Services Specialist Name Role Phone Edwardo Mccormack MD Primary Care Provider [phone] Marlen Cabello DMD Unavailable Mary Hahn Unavailable Unavailable Willem Castro Unavailable Unavailable Chad Coughlin MD Primary Care Provider [phone] Edgardo Browne MD Unavailable [phone] Hu Belle DMD Unavailable [phone] Светлана Edwards Unavailable Unavailable Kiya Macdonald ACCOUNT RELATIONSHIP MANAGER Unavailable [phone] Erica Aguilar Unavailable Unavailable Maria L Gomez Unavailable Unavailable Encounter Details Date Type Department Care Team (Late st Contact Info) Description 12/10/2020 Abstract DSB [facility] [address] [place] [address] Dental, Provider, DDS [address] [place] [address] Social History Tobacco Use Types Packs/Day Years Used Date Smoking Tobacco: Never Alcohol Use Standard Drinks/Week Comments No 0 (1 standard drink = 0.6 oz pur e alcohol) Comments Unknown Sex and Gender Information Value Date Recorded Sex Assigned at Not on file Legal Sex Female 8:04 PM EDT Gender Identity Not on file Sexual Orientation Not on file documented as of this encounter Plan of Treatment Not on file documented as of this encounter Visit Diagnoses Not on filedocumented in this encounter Care Teams Office Services Specialist Relationship Specialty Start Date End Date Edwardo Mccormack MD [address] [place] [address] [place] [address] PCP - General 01/04/21 03/24/22 Chad Coughlin MD [facility] Dentistry PCP - General 03/25/22 Marlen Cabello, DMD [address] [place] [address] Dentist Dental Certified Registered Nurse Anesthetist 02/05/21 Mary Hahn [facility] Dental Student Dental Certified Registered Nurse Anesthetist 02/05/21 02/05/21 Willem Castro [facility] Dental Student Dental Certified Registered Nurse Anesthetist 02/05/21 12/10/22 Edgardo Browne MD [address] [place] [address] Surgeon Neurosurgery 03/25/22 Hu Belle, DMD [address] [place] [address] Dentist 05/06/22 Светлана Edwards Dental Student Dental Certified Registered Nurse Anesthetist 12/11/22 01/14/24 Kiya Macdonald APRN [address] [place] [address] Nurse Practitioner Neurosurgery 03/06/23 [place] [address] District Sales Representative 12/14/23 01/25/24 Maria L Gomez Dental Student Dental Certified Registered Nurse Anesthetist 01/15/24 documented as of this encounter
--- OUTSIDE RECORDS SUMMARY | 2025-04-11 22:22 | XMS_ITS | Encounter Summary ---
[facility] Address [address] [place] [address] Care Team Providers Care Head Sampler Name Role Phone Chad Coughlin MD Primary Care Provi kaitlin Reason for Visit * Reason Comments Med Refill Encounter Details Date Type Department Care Team (Late Contact Info) Description 08/10/2022 Refill [facility] FAMILY MEDICINE [address] [address] Chad Coughlin MD [address] [place] [id number] Social History Tobacco Use Types Packs/Day Years Used Date Smoking Tobacco: Never Smokeless Tobacco: Never Alcohol Use Standard Drinks/Week Comments No 0 (1 standard drink = 0.6 oz pur e alcohol) PHQ-2 Answer Date Recorded Retired PHQ-9: Brief Depression Severity Measure Score 0 08/06/2022 Comments No Sex and Gender Information Value Date Recorded Sex Assigned at Not on file Legal Sex Female 10:17 AM EDT Gender Identity Not on file Sexual Orientation Not on file documented as of this encounter Plan of Treatment Upcoming Encounters Date Type Department Care Team (Late Contact Info) Description 05/10/2025 11:30 AM EDT Office Visit [facility] RHEUMATOLOGY 330 [address] [facility] [address] [place] [phone] Michelle Hahn APRN [address] [place] [address] 05/24/2025 2:30 PM EDT Office Visit [facility] 1760 [facility] [address] [place] [phone] Chad Coughlin MD 1760 [facility] [address] [place] [address] Scheduled Procedures Name Priority Associated Diagnoses Date/Ti [...] Indicated Resolved Time Other Comment:Discharged from [facility] on 02/21/20 -Merry Bell, RN, BSN, CIC - Infection Control 02/23/2020 02/23/2020 06/26/2023 2:54 PM E DT COVID (rule out) 06/26/2023 06/26/2023 06/26/2023 2:54 PM EDT COVID (rule out) 09/12/2023 09/12/2023 09/19/2023 9:08 PM EST COVID Screen (preop/placement) 11/09/2023 11/09/2023 11/09/2023 7:39 PM EDT MRSA 11/09/2023 11/09/2023 documented as of this encounter Care Teams Head Sampler Relationship Specialty Start Date End Date Chad Coughlin MD 1760 [facility] [address] [place] [address] PCP - General Family Medicine 05/06/18 documented as of this encounter
--- OUTSIDE RECORDS SUMMARY | 2025-04-11 22:22 | XMS_ITS | Encounter Summary ---
Author Organization [facility] Address [address] [place] [address] Care Team Providers Care Pilot Captain Name Role Phone Edwardo Mccormack MD Primary Care Provider [phone] Marlen Cabello DMD Unavailable [phone] Willem Castro Unavailable Unavailable Chad Coughlin MD Primary Care Provider [phone] Edgardo Browne MD Unavailable [phone] Hu Belle DMD Unavailable [phone] Светлана Edwards Unavailable Unavailable Kiya Macdonald JOINERY PATTERNMAKER Unavailable [phone] Erica Aguilar Unavailable Unavailable Maria L Gomez Unavailable Unavailable Reason for Referral * Consultation (Routine) - Closed Specialty Diagnoses / Procedures Referred By Contac t Referred To Contact Neurosurgery Diagnoses DDD (degenerative disc disease), lumbar Chad Coughlin MD [address] [facility] [address] [place] [address] Phone: tel: fax: Edgardo Browne MD [address] [place] [address] Phone: tel: fax: Referral ID Status Reason Start Date Expiration Date V isits Requested Visits Authorized [id number] Closed Specialty Services Required 2022 09/04/2023 1 1 Encounter Details Date Type Department Care Team (Late st Contact Info) Description 2022 [facility] 800 [place] [address] Chad Coughlin MD [address] [facility] [address] [place] [address] DDD (degenerative disc disease), lumbar (Primary Dx) Social History Tobacco Use Types Packs/Day Years [...] as of this encounter Plan of Treatment Scheduled Referrals Name Type Priority Associated Diagnoses Order Schedule Ambulatory Referral to Neurosurgery Outpatient Referral Routine DDD (degenerative disc disease), lumbar Expected: 2022 (Approximate), Expires: 09/05/2023 documented as of this encounter Visit Diagnoses Diagnosis DDD (degenerative disc disease), lumbar- Primary Degeneration of lumbar or lumbosacral intervertebral disc documented in this encounter Care Teams Pilot Captain Relationship Specialty Start Date End Date Edwardo Mccormack MD [address] [place] [address] PCP - General 01/04/21 03/24/22 Chad Coughlin MD [employer] PCP - General 03/25/22 Marlen Cabello DMD 800 [facility] [place] [address] Dentist Dental Bpm Analyst 02/05/21 Willem Castro [employer] Dental Student Dental Bpm Analyst 02/05/21 12/10/22 Edgardo Browne MD [address] [place] [address] Surgeon Neurosurgery 03/25/22 Hu Belle, OSKAR [address] [facility] [facility] [address] [place] [address] Dentist 05/06/22 Светлана Edwards Dental Student Dental Bpm Analyst 12/11/22 01/14/24 Kiya Macdonald APRN [address] [place] [address] Nurse Practitioner Neurosurgery 03/06/23 [place] [address] Worm Picker 12/14/23 01/25/24 Maria L Gomez Dental Student Dental Bpm Analyst 01/15/24 documented as of this encounter
--- NOTE | 2025-04-11 23:28 | CT_ITS ---
PROCEDURE INFORMATION: Exam: CT Abdomen And Pelvis With Contrast Exam date and time: 04/12/2025 12:49 AM Age: 85 years old Clinical indication: Abdominal pain; Additional info: Urinary urge, frequency, back pain, HX back surger TECHNIQUE: Imaging protocol: Computed tomography of the abdomen and pelvis with contrast. Radiation optimization: All CT scans at this facility use at least one of these dose optimization techniques: automated exposure control; mA and/or kV adjustment per patient size (includes targeted exams where dose is matched to clinical indication); or iterative reconstruction. Contrast material: ISOVUE; Contrast volume: 75 ml; Contrast route: IV; COMPARISON: No relevant prior studies available. FINDINGS: Liver: Unremarkable. No mass. Gallbladder and biliary ducts: Unremarkable. No calcified stones. No ductal dilation. Pancreas: Unremarkable. No ductal dilation. Spleen: Unremarkable. No splenomegaly. Adrenal glands: Unremarkable. No mass. Kidneys and ureters: No nephroureterolithiasis. No hydronephrosis. Stomach and bowel: Nonobstructive pattern. Appendix: Not visualized. Intraperitoneal space: Unremarkable. No free air. No significant fluid collection. Vasculature: Unremarkable. No abdominal aortic aneurysm. Lymph nodes: Unremarkable. No enlarged lymph nodes. Urinary bladder: Unremarkable as visualized. Reproductive: Unremarkable as visualized. Bones/joints: ORIF of L4/5 levels. No acute findings identified. Soft tissues: Chronic supraumbilical fat containing hernia. IMPRESSION: 1. No acute findings. 2. Supraumbilical fat containing hernia.
[2025-04-11] MEDS: GABAPENTIN 300MG CAPSULE 600 MG PO (23:29)
[2025-04-11] MEDS: OXYCODONE 5MG IMMEDIATE RELEASE TABLET 10 MG PO (23:29)
--- NOTE | 2025-04-11 23:30 | ED_ITS ---
Discharge Plan Disposition Patient Disposition: Home, Self-Care Condition: Good Prescriptions Prescriptions: No Action ferrous sulfate 325 mg (65 mg iron) tablet PO Patient Comments: TAKE 1 TABLET BY MOUTH EVERY DAY gabapentin 600 mg tablet 600 mg PO TID Patient Comments: TAKE 1 TABLET BY MOUTH THREE TIMES A DAY losartan 100 mg tablet 100 mg PO DAILY Patient Comments: TAKE 1 TABLET BY MOUTH EVERY DAY metoprolol tartrate 25 mg tablet 25 mg PO BID Patient Comments: TAKE 1 TABLET BY MOUTH TWICE A DAY oxycodone 10 mg tablet 10 mg PO QID Patient Comments: TAKE 1 TABLET BY MOUTH FOUR TIMES A DAY DNF-10/05/24 Referrals Follow up/Referrals: Chad Coughlin [Primary Care Provider, Medical] - See instructions Activity Restrictions/Add. Instructions Additional Instructions/Restrictions: You were evaluated in the ER and are believed to be appropriate for discharge at this time. Continue taking your home medications as prescribed. Drink plenty of fluids to maintain good hydration. Call your primary care doctor and follow- up with them in 1 to 2 days for reevaluation. Return to the ER with any new, worsening, or otherwise concerning symptoms. Clinical Impressions Clinical Impression: Low back pain, Body aches Print Language Print Language: Sammarinese Discharge ED Provider: Abdullahi Coulter General Adult HPI General Chief complaint: PAIN Stated complaint: Possible Kidney Infection; Back pain and Both Legs Time Seen by Provider: 04/11/25 23:22 Mode of Arrival: Wheelchair Source of Information: Patient Description of Symptoms (Recalled from ER Triage Doc. by RN): lower back pain, restless legs, urinary incortinenece (thinks she has UTI) has RA and fibromyalgia and says whole body hurts History of Present Illness HPI narrative: 85-year-old female presents to the ER complaining of lower back pain, urinary urgency and frequency, dribbling urine. She states these are her typical symptoms of urinary tract infection and states she has had chills in the last 24 hours. Patient also reports she is having pain throughout her whole body with a recent diagnosis of fibromyalgia, she is tearful on my exam stating she typically takes oxycodone and gabapentin at night and it has been more than 6 hours since her last dose. Patient states the pain throughout her body and legs is her chronic pain and exacerbation right now because she has not had her medications. She states she has no paralysis, no weakness, no saddle anesthesia. She is complaining of pain into the groin. She has had no popping or acute back pain. She is able to independently move from laying to sitting and standing. Patient is very upset about having missed her recent doses of medications and has to be redirected because of her anxiety and tearfulness. She denies any abdominal pain, states she does not have burning with urination but typically does not have this when she has urinary tract infection. She states she does not have any chest pain or difficulty breathing, no headache, dizziness, numbness, tingling, or weakness. She reportedly has had previous spine surgery and since that time has had all these chronic pains and problems with her legs. Related Data Home Medications ?Medication ?Instructions ?Recorded ?Confirmed gabapentin 600 mg tablet 600 mg PO TID 10/14/2411/28 losartan 100 mg tablet 100 mg PO DAILY 10/14/2403/17 metoprolol tartrate 25 mg tablet 25 mg PO BID 10/14/24 11/28/24 oxycodone 10 mg tablet 10 mg PO QID 10/14/24 ferrous sulfate 325 mg (65 mg mg PO 10/24/24 11/28/24 iron) tablet Allergies Allergy/AdvReac Type Severity Reaction Status Date / Time morphine (MORPHINE) Allergy Unknown RESP. DIFF. Verified 04/11/25 23:27 [facility] Disclaimer: The information contained in this section may have been updated after the patient was seen, as this information can be updated by other users. Social History Smoking Status: Never smoker alcohol intake: never current occupational status: retired Travel in the last 8 weeks?: None Have you lived/traveled outside US in past 30 days?: No Contact w/someone who lives/traveled outside US past 30 days?: No Exposure to someone with infectious disease in past 14 days?: No Do you have a fever (greater than 100.4 F or 38 C)?: No Have you tested positive for COVID-19?: No Exposed to someone with COVID-19 in past 14 days?: No Do you have a sore throat?: No Do you have a cough?: No Do you have any weakness?: No Do you have any diarrhea?: No Are you experiencing any unusual bleeding?: No Do you have any muscle aches/pain?: No Do you have any abdominal pain?: No Are you experiencing loss of taste or smell?: No Other Medical History Have you received the Pneumonia Vaccine: Yes ROS Obtained: Yes Systems reviewed as appropriate & no additional complaints except as documented Per HPI Physical Exam General General appearance: alert Comment: Anxious, tearful, appears to be in pain but nontoxic Head Head exam: atraumatic and normocephalic Eye Eye exam: Present PERRL and EOMI ENT ENT exam: Present mucous membranes moist Neck Neck exam: Present normal inspection and full ROM Chest Chest inspection: Present symmetric chest wall rise; Absent tenderness Respiratory Respiratory exam: Present normal lung sounds bilaterally; Absent respiratory distress, wheezes or stridor Cardiovascular Cardiovascular exam: Present regular rate and normal rhythm Abdominal Exam Abdominal exam: Present soft; Absent distention, tenderness, guarding or rebound Rectal Exam Rectal exam: Present normal rectal tone Extremities Exam Extremities exam: Present full ROM, tenderness (Diffuse tenderness throughout the major muscle groups with no swelling, deformity, bruising, or other abnormalities appreciated), normal capillary refill and edema (Bilateral lower extremities left slightly more than right); Absent joint swelling or calf tenderness Back Exam Back exam: Present normal inspection, full ROM and tenderness (Diffusely across the very low back especially in the paraspinal areas, no specific midline tenderness, no deformity or step-off); Absent CVA tenderness (R), CVA tenderness (L), sciatic notch tenderness (R) or sciatic notch tenderness (L) Back 1 view image: 2 1. Diffuse discomfort with palpation throughout this area with no focal tenderness, no midline tenderness deformity or step-off, no bruising or evidence of traumatic injury Neurological Exam Neurological exam: Present alert, oriented X3 and other (No saddle anesthesia); Absent motor sensory deficit Psychiatric Psychiatric exam: Present normal affect and normal mood Skin Skin exam: Present warm and dry Medical Decision Making Medical Records Medical records reviewed: Yes I reviewed the patient's medical records. Screening: Per USPSTF and CDC recommendations, given the prevalence of disease in our region, it is our hospital?s policy to screen for HIV and viral Hepatitis for all patients aged 18 and over and those with ongoing risk factors. Chaim Inquiry Pt receiving controlled substance: No Vital Signs: 04/11/25 22:10 04/12/25 00:22 Temperature 97.9 F 98.7 F Temperature Source Oral Oral Pulse Rate 69 Pulse Rate [Right Radial] 71 Respiratory Rate 16 16 Blood Pressure 143/72 H Blood Pressure [Right Arm] 205/109 H Blood Pressure Mean [Right Arm] 141 Blood Pressure Source Automatic Cuff Blood Pressure Source [Right Arm] Automatic Cuff Blood Pressure Position Supine Blood Pressure Position [Right Arm] Supine 02 Sat by Pulse Oximetry 98 98 Oxygen Delivery Method Room Air Room Air Lab Data Lab Results 04/12/25 00:00: WBC 8.3, RBC 4.16 L, Hgb 12.4, Hct 39.5, MCV 95.0, MCH 29.8, M CHC 31.4 L, RDW 13.1, Plt Count 162, MPV 11.7 H, Neut % (Auto) 68.1, Lymph % (Auto) 23.7, [place] % (Auto) 6.8, Eos % (Auto) 0.5, Baso % (Auto) 0.7, Neut # (Auto) 5.6, Lymph # (Auto) 2.0, [place] # (Auto) 0.6, Eos # (Auto) 0.0, Baso # (Auto) 0.1, Sodium 137, Potassium 4.6, Chloride 105, Carbon Dioxide 22, Anion Gap 14.6, BUN 20 H, Creatinine 1.20 H, Estimated Creat Clear 40, Estimated GFR 43 L, Est GFR ( Amer) 52 L, Glucose 100, Lactate 1.1, Calcium 9.2, Total Bilirubin 0.9, AST 32, ALT 16, Alkaline Phosphatase 111, Total Creatine Kinase 120, Total Protein 7.2, Albumin 4.5, Globulin 2.7, Albumin/Globulin Ratio 1.7 04/12/25 01:44: Urine Color Yellow, Urine Appearance Clear, Urine pH 6.5, Ur Specific [place] 1.010, Urine Protein Negative, Urine Glucose (UA) Negative, Urine Ketones Negative, Urine Blood Trace-i, Urine Nitrate Negative, Urine Bilirubin Negative, Urine Urobilinogen 0.2, Ur Leukocyte Esterase Negative, Urine WBC Occasional, Ur Squamous Epith Cells Occasional, Urine Bacteria Trace 04/12/25 00:00 04/12/25 00:00 Orders (Tests/Meds): ED MEDICATIONS Generic Name Dose Route Start Last Admin Trade Name Freq PRN Reason Stop Dose Admin Sodium Chloride 10 ml 04/12/25 00:53 04/12/25 00:54 Sodium Chloride 0.9% 10ml Syr (Rad Only) IV 05/12/25 00:52 10 ml NEEDED PRN Administration Maintain IV Site Discontinued Medications Generic Name Dose Route Start Last Admin Trade Name Parul PRN Reason Stop Dose Admin Gabapentin 600 mg 04/11/25 23:19 04/11/25 23:29 Gabapentin 300mg Capsule PO 04/11/25 23:20 600 mg ONCE ONE Administration Hydromorphone HCl 1 mg 04/11/25 23:48 04/12/25 00:01 Hydromorphone 2mg/Ml Syringe IV 04/11/25 23:49 1 mg ONCE ONE Administration Iopamidol 75 ml 04/12/25 00:53 04/12/25 00:53 Iopamidol-370 (76%);100ml Bottle IV 04/12/25 00:54 75 ml ONCE ONE Administration Methocarbamol 500 mg 04/11/25 23:30 04/11/25 23:31 Methocarbamol 500mg Tablet PO 04/11/25 23:31 500 mg ONCE ONE Administration Ondansetron HCl 4 mg 04/11/25 23:33 04/12/25 00:02 Ondansetron 4mg/2ml Vial IV 04/11/25 23:34 4 mg ONCE ONE Administration Oxycodone HCl 10 mg 04/11/25 23:21 04/11/25 23:29 Oxycodone 5mg Immediate Release Tablet PO 04/11/25 23:22 10 mg ONCE ONE Administration ORDERS Category Date Time Status CT abdomen pelvis w con Stat Cat Scan 04/11/25 23:28 Completed CBC w/Auto Diff [Complete Blood Count Auto Diff] Stat Lab 04/11/25 23:28 Completed CK [Creatine Kinase] Stat Lab 04/11/25 23:28 Completed CMP [Comprehensive Metabolic Panel] Stat Lab 04/11/25 23:28 Completed Lactic Acid Stat Lab 04/11/25 23:34 Completed Urinalysis and Microscopic Stat Lab 04/12/25 01:44 Completed Medical Decision Narrative: In summary, this 85-year-old female with comorbidities described in the HPI presents to the emergency department today with concerns of urinary tract infection, diffuse body aches. On initial evaluation patient is hemodynamically stable though hypertensive, afebrile, physical exam notable for benign abdomen, diffuse discomfort to palpation across the very low back primarily in the paraspinal areas, no focal tenderness within the midline, no deformity or step- off, no saddle anesthesia. Patient states she is having urinary dribbling which is a common problem when she has urinary tract infections, rectal tone intact. No evidence of traumatic injury, no neurologic deficits. Differential diagnosis includes but is not limited to urinary tract infection, pyelonephritis,radiculopathy, I considered the possibility of cauda equina but have extremely low suspicion for this given patient has had multiple days of gradual onset of symptoms, no saddle anesthesia, no weakness. I did also consider the possibility of viral syndrome, rhabdo, muscle spasm, among others. Based on these concerns, I ordered serum labs, CT imaging, urinalysis, CK, bladder scan. Patient received home dose oxycodone and gabapentin. She also requested Zofran which was administered as well as methocarbamol. Labs personally reviewed demonstrate no leukocytosis or anemia, platelets normal, CMP with creatinine 1.2, no previous labs for comparison, patient is receiving IV fluids and I suspect this is likely very close to her baseline. CMP otherwise nonactionable, UA negative for findings of infection. Lactic and CK normal reassuring against endorgan damage or muscle breakdown. Patient was still complaining of pain after receiving initial medications so Dilaudid was administered to hopefully break this pain cycle. I explained to her I will not be prescribing any new medications for pain or giving additional narcotics in the ER at this time. CT abdomen pelvis personally interpreted does not demonstrate acute intra- abdominal pathology, imaging of the low back is not concerning for acute abnormality though there is evidence of previous surgical intervention. Patient does have a small fat-containing hernia. See radiology read for final interpretation. Patient used the restroom and the bladder scanner was not available immediately in the ER so it had to be found from another location in the hospital. Approximately 20 minutes after she had urinated, postvoid bladder scan was 69 mL. This is very reassuring that patient does not have urinary retention, further reassurance against cauda equina. On reassessment patient is resting very comfortably and is appropriate for discharge. She is reassured by workup. I encouraged her to continue her home medications as prescribed, gave her instructions for follow-up with her primary care doctor, and gave strict return precautions for the ER. She indicated understanding and the patient was discharged in stable condition. Critical Care Critical Care Time Critical Care Time: No
[2025-04-11] MEDS: METHOCARBAMOL 500MG TABLET 500 MG PO (23:31)
[2025-04-12] MEDS: HYDROMORPHONE 2MG/ML SYRINGE 1 MG IV (00:01)
[2025-04-12] MEDS: ONDANSETRON 4MG/2ML VIAL 4 MG IV (00:02)
[2025-04-12 00:22] VITALS: BP 143/72; PULSE 69; RESP 16; TEMP 37.1; O2SAT 98
[2025-04-12 00:24] LABS: Hematocrit 39.5 % (37.0-47.0); Hemoglobin 12.4 g/dL (12.2-16.2); Immature Granulocytes % 0.2 %; Mean Corpuscular HGB Conc 31.4 g/dL (31.8-35.4); Mean Corpuscular Hemoglobin 29.8 pg (27.0-31.2); Mean Corpuscular Volume 95.0 fl (81-99); Nucleated Red Blood Cells % 0 %; Platelet Count 162 K/mm3 (142-424); Red Blood Count 4.16 M/mm3 (4.20-5.40); Red Cell Distribution Width-SD 45.7 fL; White Blood Count 8.3 K/mm3 (4.8-10.8)
[2025-04-12 00:31] LABS: Alanine Aminotransferase 16 U/L (12-78); Albumin Level 4.5 g/dl (3.5-5.0); Albumin/Globulin Ratio 1.7 (1.1-1.8); Alkaline Phosphatase 111 U/L (38-126); Anion Gap 14.6 mEq/L (5-15); Aspartate Amino Transferase 32 U/L (14-36); Bilirubin,Total 0.9 mg/dl (0.2-1.3); Blood Urea Nitrogen 20 mg/dl (7-17); Calcium 9.2 mg/dl (8.4-10.2); Carbon Dioxide 22 mmol/L (22.0-30.0); Chloride 105 mmol/L (98-107); Creatine Kinase 120 U/L (30-135); Creatinine Clearance Estimated 40 mL/min (50-200); Creatinine,Serum 1.20 mg/dl (0.52-1.04); Estimated Glomerular Filt Rate 43 ml/min (>60); GFR (African American) 52 ML/MIN (>60); Globulin 2.7 g/dL (1.3-3.2); Glucose 100 mg/dl (74-100); Potassium 4.6 mmoL/L (3.5-5.1); Sodium 137 mmol/L (136-145); Total Protein,Serum 7.2 g/dl (6.3-8.2)
[2025-04-12] MEDS: IOPAMIDOL-370 (76%);100ML BOTTLE 75 ML IV (00:53)
[2025-04-12] MEDS: SODIUM CHLORIDE 0.9% 10ML SYR (RAD ONLY) 10 ML IV (00:54)
[2025-04-12 01:47] LABS: Microscopic, Urine URINE MICROSCOPIC (MICROSCOPIC)
[2025-04-12 01:50] LABS: Bilirubin,Urine Negative (Negative); Color,Urine YELLOW (Yellow); Glucose,Urine (UA) Negative (Negative); Ketones,Urine Negative (Negative); Leukocyte Esterase,Urine Negative (Negative); PH,Urine 6.5 (5.0-8.5); Protein,Urine Negative (Negative); Specific Gravity, Urine 1.010 (1.005-1.030); Urobilinogen,Urine 0.2 EU/dl (0.2)
[2025-04-12 02:01] LABS: Bacteria,Urine Trace /lpf; Squamous Epithelial Cell,Urine Occasional #/hpf (0-5); WBC,Urine Occasional #/hpf (0-3)
[2025-04-12 02:12] VITALS: BP 143/72; PULSE 69; RESP 16; TEMP 36.6; O2SAT 98
== END 2025-04-12 02:18 | disposition home or self-care (01) ==
PROVIDERS: Emergency Medicine; Emergency Provider Student in an Organized Health Care Education/Training Program; PCP Family Medicine
DX: M54.50 Low back pain, unspecified (principal); R39.15 Urgency of urination; R35.0 Frequency of micturition; M79.7 Fibromyalgia
CPT/HCPCS: 74177; 80053; 81001; 82550; 83605; 85025; 96374; 96375; 99282; 99284; J1171; J2405; Q9967

== ENCOUNTER 2025-04-28 12:39 | Emergency (ER) | payer MEDICARE, SELFPAY ==
--- OUTSIDE RECORDS SUMMARY | 2025-03-22 13:58 | XMS_ITS | Encounter Summary ---
Author Organization [facility] Address [address] [place] [address] Care Team Providers Care Grill Chef Name Role Phone Chad Coughlin MD Primary Care Provi kaitlin Reason for Referral * Diagnostic Imaging (Routine) - Closed Specialty Diagnoses / Procedures [facility] To Contact Radiology Diagnoses Postmenopause Procedures DEXA Bone Density Axial Michelle Hahn APRN Phone: tel: fax: [facility] DEXA DEVI [address] [place] [address] Phone: tel: Referral ID Status Reason Start Date Expiration Date Visits Re quested Visits Authorized [id number] Closed 01/06/2025 04/07/2026 1 1 Reason for Visit * Diagnostic Imaging (Routine) - Closed Specialty Diagnoses / Procedures [facility] Ref[facility] To Contact Radiology Diagnoses Postmenopause Procedures DEXA Bone Density Axial Michelle Hahn APRN Phone: tel: fax: [facility] DEXA DEVI [address] [place] [address] Phone: tel: Referral ID Status Reason Start Date Expiration Date Visits Re quested Visits Authorized [id number] Closed 01/06/2025 04/07/2026 1 1 Encounter Details Date Type Department Care Team (Latest Contact Info) Description 03/22/2025 1:58 PM EDT - 03/22/2025 11:59 PM EDT Hospital Encounter [facility] RENITA QUINONEZ [address] [place] [id number] Michelle Hahn, CHRISTINE [address] [place] [address] Postmenopause Discharge Disposition: Home or Self Care Social History Tobacco Use Types Packs/Day Years Used Date Smoking Tobacco: Never Smokeless Tobacco: Never Alcohol Use Standard Drinks/Week Comments No 0 (1 standard drink = 0.6 oz pur e alcohol) AUDIT-C Answer Date Recorded Q1: How often do you have a drink containing alcohol? Never 04/05/2024 Q2: How many drinks containi ng alcohol do you have on a typical day when you are drinking? Patient does not drink Q3: How often do you have si x or more drinks on one occasion? Never 04/05/2024 PHQ-2 Answer Date Recorded Retired PHQ-9: Brief Depression Severity Measure Score 0 11/20/2022 PRAPARE - Transportation Answer Date Re corded In the past 12 months, has l ack of transportation kept you from medical appointments or from getting medications? No 11/22 In the past 12 months, has l ack of transportation kept you from meetings, work, or from getting things needed for daily living? No 12/10/2023 Abuse Screen Answer Date Recorded Feels Unsafe at Home or Work/School no 04/05/2024 Feels Threatened by Someone no 03/24 Does Anyone Try to Keep You From Having Contact with Others or Doing Things Outside Your Home? no 04/05/2024 Physical Signs of Abuse Present no 04/05/2024 Housing Stability Answer Date Recorded Current Living Arrangements home 03/24 Potentially Unsafe Housing Conditions none 04/06/2024 Disabilities Answer Date Recorded Difficulty Concentrating, Remembering or Making Decisions no 04/05/2024 Difficulty Managing Errands Independently yes 04/05/2024 Education Answer Date Recorded Help with school or training? Not on file Preferred Language Congolese 04/06/2024 PHQ-2 Answer Date Recorded Retired PHQ-9: Brief Depression Severity Measure Score 12 05/05/2024 Comments No Sex and Gender Information Value Date Recorded Sex Assigned at Not on file Legal Sex Female 10:17 AM EDT Gender Identity Not on file Sexual Orientation Not on file documented as of this encounter Medications at Time of Discharge alendronate (FOSAMAX) 70 MG tablet Take 1 tablet by mouth Every 7 (Seven) Days. 4 tablet 11 03/27/2025 aspirin 81 MG EC tabletIndications: VTE Prophylaxis Take 1 tablet by mouth Every 12 (Twelve) Hours. Indications: VTE Prophylaxis 04/07/2024 Cholecalciferol (VITAMIN D3) 50 MCG (2000 UT) tablet Take by mouth. ferrous sulfate 325 (65 FE) MG tablet Take 1 tablet by mouth Daily. 06/14/2024 fosfomycin (MONUROL) 3 g pack Take 1 packet as needed by oral route as directed for 60 days. 02/20/2025 gabapentin (NEURONTIN) 600 MG tabletIndications: Spinal stenosis of lumbar region with neurogenic claudication,Lumbo sacral radiculopathy at L5,Status post lumbar spinal fusion Take 1 tablet by mouth 3 (Three) Times a Day. 90 tablet 1 03/01/2025 hydroxychloroquine (PLAQUENIL) 200 MG tablet Take 1 tablet by mouth Daily. 30 tablet 5 05/23/2024 losartan (COZAAR) 100 MG tablet Take 1 tablet by mouth Daily. 90 tablet 1 03/21/2025 methocarbamol (ROBAXIN) 500 MG tabletIndications: Chronic pain of left knee,Left leg weakness Take 1 tablet by mouth 4 (Four) Times a Day. 60 tablet 3 03/01/2024 metoprolol tartrate (LOPRESSOR) 25 MG tablet TAKE 1 TABLET BY MOUTH TWICE A DAY 180 tablet 1 08/15/2024 oxyCODONE (ROXICODONE) 10 MG tablet 1 tab QID 05/09/2024 rOPINIRole (REQUIP) 1 MG tablet Take 1 tablet by mouth Every Night. Take 1 hour before bedtime. 90 tablet 1 01/23/2025 documented as of this encounter Plan of Treatment Upcoming Encounters Date Type Department Care Team (Late st Contact Info) Description 05/10/2025 11:30 AM EDT Office Visit [facility] RHEUMATOLOGY [address] [place] [address] HahnMichelle APRN [address] [place] [address] 05/24/2025 2:30 PM EDT Office Visit [facility] FAMILY [facility]INE [address] [facility] [address] [place] [address] Chad Coughlin MD [address] [facility] [address] [place] [address] Scheduled Procedures Name Priority Associated Diagnoses Date/Ti me CV IR MYELOGRAM, LUMBAR Lumbar stenosis with neurogenic claudication 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 Author Track and Manage My Symptoms Patient Goals Karen Alcazar RN Note: Follow Up Date - not discussed during this outreach Why is this important? Keeping track of the symptoms that you have can help you to understand your condition. You will also learn what works to manage the symptoms. You and your doctor will then be able to come up with the best treatment plan for you. Notes: Track and Manage My Blood Pressure Patient Goals No Karen Covarrubias RN Note: Follow Up Date - not discussed during this outreach Why is this important? You won't feel high blood pressure, but it can still hurt your blood vessels. High blood pressure can cause heart or kidney problems. It can also cause a stroke. Making lifestyle changes like losing a little weight or eating less salt will help. Checking your blood pressure at home and at different times of the day can help to control blood pressure. If the doctor prescribes medicine remember to take it the way the doctor ordered. Call the office if you cannot afford the medicine or if there are questions about it. Notes: Manage Pain Patient Goals Karen Alcazar RN Note: Follow Up Date - not discussed during this outreach Why is this important? Day-to-day life can be hard when you have chronic pain. Pain medicine is just one piece of the treatment puzzle. You can try these action steps to help you manage your pain. Notes: [place] with Chronic Pain Patient Goals No Karen Covarrubias RN Note: Follow Up Date - not discussed during this outreach Why is this important? Stress makes chronic pain feel worse. Feelings like depression, anxiety, stress and anger can make your body more sensitive to pain. Learning ways to cope with stress or depression may help you find some relief from the pain. Notes: Keep Pain Under Control Patient Goals No Karen Covarrubias RN Note: Follow Up Date - not discussed during this outreach Why is this important? Day-to-day life can be hard when you have back pain. Pain medicine is just one piece of the treatment puzzle. There are many things you can do to manage pain and keep your back strong. Lifestyle changes, like stopping smoking and eating foods with Vitamin D and calcium, keep your bones and muscles healthy. Your back is better when it is supported by strong muscles. You can try these action steps to help you manage your pain. Notes: Autogenerated Goal Care Plan Autogenerated Problem No Ronn Gerber MD documented as of this encounter Procedures Procedure Name Priority Date/Time Associated Diagnosis Comments DEXA BONE DENSITY AXIAL Routine 03/22/2025 2:19 PM EDT Postmenopause documented in this encounter Results * DEXA Bone Density Axial (03/22/2025 2:19 PM EDT) Anatomical Region Laterality Modality Wrist, Hip, L-spine N/A Other 03/22/2025 2:53 PM EDT Impressions 03/22/2025 5:00 PM EDT Osteoporosis of the total left hip, and one third right forearm. Osteopenia of the femoral necks bilaterally, and total right hip. The ten year fracture risk assessment was not calculated because some T-scores were at or below -2.5. All the treatment decisions require clinical judgment and consideration of individual patient factors, including patient preferences, co-morbidities, previous drug use, risk factors not captured in the FRAX model (frailty, falls, vitamin D deficiency, increased bone turnover, interval significant decline in bone density) and possible under or over estimation of fracture risk by FRAX. Approaches to reduce osteoporosis related fracture risk include optimizing calcium and vitamin D status, appropriate weight bearing exercises and fall-prevention measurements. The National Osteoporosis Foundation recommends (http://www.nof.org/hcp/practice/nflscepi-yhs-shdvgdtb-guidelines/clinicians-omi de) that FDA-approved medical therapies be considered in postmenopausal women and men aged equal or greater than 50 years with : a) hip or vertebral (clinical or morphometric) fracture; b) T-score of -2.5 or less at the spine or hip; c) Ten-year fracture probability by FRAX of greater than 3% for hip fracture of greater than 20% for major osteoporotic fracture. Secondary causes of bone loss should be evaluated if clinically indicated since the etiology of low BMD cannot be determined by BMD measurement alone. FOLLOWUP: Consider repeating the study in 2-3 years to reassess the patient's status or sooner if there is some new clinical indication. INTERVAL CHANGE: There were no equivalent studies available for comparison. Due to cross calibration requirements from different scanners, previous studies may not be available for statistical comparison at this time.. At this facility, the least significant change in the BMD at the left hip with 95% confidence is 0.650323 gm/cm2 at the hip and 0.420797 g/cm2 at the lumbar spine. Report dictated by: Renata Huynh PA-c I have personally reviewed this case and agree with the findings above: Electronically Signed: Edwardo Pathak MD 03/22/2025 5:00 PM EDT Workstation ID: [id number] Narrative 03/22/2025 5:00 PM EDT DUAL-ENERGY X-RAY ABSORPTIOMETRY (DXA) INDICATION: Postmenopausal, screening for osteoporosis, height loss, prior fracture, rheumatoid arthritis, new baseline COMPARISON: There are no equivalent studies available for comparison PROCEDURE: A DXA scan was performed using a Hologic densitometer. The bilateral total hips were evaluated, as well as the right forearm. The T-score compares the patient's bone mineral density with the peak bone mass of young normal patients. According to criteria established by the World Health Organization, patients with T-scores between 1.0 and 2.5 standard deviations BELOW the mean are osteopenic (low bone mass). Patients with T-scores EQUAL TO OR GREATER than 2.5 standard deviations below the mean are osteoporotic. The Z-score compares the patient bone mineral density with age and sex matched peers. According to the International Society for Clinical Densitometry's 2007 consensus conference: In women prior to menopause and men less than age 50, Z-scores, not T-scores are preferred. A Z-score of -2.0 or lower is defined as below the expected range for age and a Z-score above -2.0 is within the expected range for age. The WHO diagnostic criteria may be applied in women in the menopausal transition. Osteoporosis cannot be diagnosed in men under age 50 on the basis of BMD alone. TECHNICAL QUALITY: The study is of good technical quality. RESULTS: Total Hip: The BMD measured at the left total proximal femur is 0.610 g/cm2. The T-score is -2.7. The Z-score is -0.4. Femoral Neck: The BMD measured at the left femoral neck is 0.579 g/cm2. The T-score is -2.4. The Z-score is 0.0. Total Hip: The BMD measured at the right total proximal femur is 0.761 g/cm2. The T-score is -1.5. The Z-score is 0.8. Femoral neck: The BMD measured at the right femoral neck is 0.591 g/cm2. The T score is -2.3. The Z score is 0.2. 1/3 Radius: The BMD measured at the right one-third radius is 0.472 g/cm2. The T-score is -3.7. The Z-score is -0.1. Procedure Note Edwardo Pathak MD - 03/22/2025 DUAL-ENERGY X-RAY ABSORPTIOMETRY (DXA) INDICATION: Postmenopausal, screening for osteoporosis, height loss, priorfracture, rheumatoid arthritis, new baseline COMPARISON: There are no equivalent studies available for comparison PROCEDURE: A DXA scan was performed using a Hologic densitometer. The bilateral total hips were evaluated, as well as the right forearm. The T-score compares the patient's bone mineral density with the peak bonemass of young normal patients. According to criteria established by the[facility] Organization, patients with T-scores between 1.0 and 2.5standard deviations BELOW the mean are osteopenic (low bone mass). Patients with T-scores EQUAL TO ORGREATER than 2.5 standard deviations below the mean are osteoporotic. The Z-score compares the patient bone mineral density with age and sexmatched peers. According to the International Society for ClinicalDensitometry's 2007 consensus conference: In women prior to menopause andmen less than age 50, Z-scores, not T-scores are preferred. A Z-score of -2.0 or lower is defined as belowthe expected range for age and a Z-score above -2.0 is within theexpected range for age. The WHO diagnostic criteria may be applied inwomen in the menopausal transition. Osteoporosis cannot be diagnosed in men under age 50 on the basis of BMDalone. TECHNICAL QUALITY: The study is of good technical quality. RESULTS: Total Hip: The BMD measured at the left total proximal femur is 0.610g/cm2. The T-score is -2.7. The Z-score is -0.4. Femoral Neck: The BMD measured at the left femoral neck is 0.579 g/cm2.The T- score is -2.4. The Z-score is 0.0. Total Hip: The BMD measured at the right total proximal femur is 0.761g/cm2. The T-score is -1.5. The Z-score is 0.8. Femoral neck: The BMD measured at the right femoral neck is 0.591 g/cm2.The T score is -2.3. The Z score is 0.2. 1/3 Radius: The BMD measured at the right one-third radius is 0.472g/cm2. The T-score is -3.7. The Z-score is -0.1. IMPRESSION: Osteoporosis of the total left hip, and one third right forearm.Osteopenia of the femoral necks bilaterally, and total right hip. The ten year fracture risk assessment was not calculated because someT-scores were at or below -2.5. All the treatment decisions require clinical judgment and consideration ofindividual patient factors, including patient preferences, co-morbidities,previous drug use, risk factors not captured in the FRAX model (frailty,falls, vitamin D deficiency, increased bone turnover, interval significant decline in bone density) andpossible under or over estimation of fracture risk by FRAX. Approaches toreduce osteoporosis related fracture risk include optimizing calcium andvitamin D status, appropriate weight bearing exercises and fall-prevention measurements. The NationalOsteoporosis Foundation recommends(http://www.nof.org/hcp/practice/fgdyrdwo-jwj-nlklgvoi-guidelines/clin ician s-guide) that FDA-approved medical therapies be considered in postmenopausal women and men aged equal or greater than 50 years with :a) hip or vertebral (clinical or morphometric) fracture; b) T-score of-2.5 or less at the spine or hip; c) Ten-year fracture probability by FRAXof greater than 3% for hip fracture of greater than 20% for major osteoporotic fracture. Secondary causes of bone loss should be evaluated if clinically indicatedsince the etiology of low BMD cannot be determined by BMD measurementalone. FOLLOWUP: Consider repeating the study in 2-3 years to reassess thepatient's status or sooner if there is some new clinical indication. INTERVAL CHANGE: There were no equivalent studies available forcomparison. Due to cross calibration requirements from different scanners,previous studies may not be available for statistical comparison at thistime.. At this facility, the least significant change in the BMD at the left hipwith 95% confidence is 0.647233 gm/cm2 at the hip and 0.000326 g/cm2 atthe lumbar spine. 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
--- OUTSIDE RECORDS SUMMARY | 2025-04-07 10:50 | XMS_ITS | Encounter Summary ---
Author Organization [facility] Address [address] [place] [address] Care Team Providers Care Radiation Safety Officer Name Role Phone Chad Coughlin MD Primary Care Provi kaitlin Reason for Visit * Reason Comments Follow-up 6 month follow up- 1 year status post Total Knee Arthroplasty left (DOS 04/05/24) Encounter Details Date Type Department Care Team (Late st Contact Info) Description 04/07/2025 10:50 AM EDT Office Visit [facility] ORTHOPEDICS & SPORTS MEDICINE [address] [phone] Ronn Gerber MD [address] [place] [address] S/P TKR (total knee replacement), left (Primary [...] or training? Not on file Preferred Language Mosotho 04/06/2024 PHQ-2 Answer Date Recorded Retired PHQ-9: [...] the original note were not included. [facility] Note Subjective Chief Complaint [...] Units Date/Time XR Knee 3+ View With [place] Left [[id number]] Resulted: 04/07/251212 Updated: 04/07/251212 Narrative: Left Knee [...] (Primary) - XR Knee 3+ View With [place] Left 2. Postoperative examination 1. S/P TKR [...] Gerber MD 04/07/25 12:18 EDT Dictated Utilizing [employer] Dictation documented in this encounter Plan of Treatment Upcoming Encounters Date Type Department Care Team (Late st Contact Info) Description 05/10/2025 11:30 AM EDT Office Visit [facility] RHEUMATOLOGY [address] [place] [phone] Michelle Hahn PASTEURIZING SUPERVISOR [address] [place] [address] 05/24/2025 2:30 PM EDT Office Visit [facility] FAMILY MEDICINE [address] [facility] [address] [place] [phone] Chad Coughlin MD [address] [facility] [address] [place], [place] [phone] Scheduled Procedures Name Priority Associated Diagnoses Date/Ti [...] to help you manage your pain. Notes: [place] with Chronic Pain Patient Goals No Karen [...] Results * XR Knee 3+ View With [place] Left (04/07/2025 11:57 AM EDT) Anatomical Region Laterality Modality Lower Extremities, Knee Left Radio[facility] Imaging Narrative 04/07/2025 12:13 PM EDT [...] documented as of this encounter Care Teams Radiation Safety Officer Relationship Specialty Start Date End Date Chad Coughlin MD [address] [place] [address] PCP - General Family Medicine 05/06/18 documented as of this encounter
--- OUTSIDE RECORDS SUMMARY | 2025-04-07 11:45 | XMS_ITS | Encounter Summary ---
[facility] Address [address] [place] [address] Care Team Providers Care Political Worker Name Role Phone Chad Coughlin MD Primary Care Provi kaitlin Encounter Details Date Type Department Care Team (Late st Contact Info) Description 04/07/2025 11:45 AM EDT Ancillary Procedure [facility]TS MEDICINE [address] [phone] Social History Tobacco Use Types [...] or training? Not on file Preferred Language Martiniquais 04/06/2024 PHQ-2 Answer Date Recorded Retired PHQ-9: [...] Description 05/10/2025 11:30 AM EDT Office Visit [facility] RHEUMATOLOGY [address] [phone] Michelle Hahn APRN [address] [address] 05/24/2025 2:30 PM EDT Office Visit [facility] FAMILY MEDICINE [address] [phone] Chad Coughlin MD [address] [address] Scheduled Procedures Name Priority Associated Diagnoses Date/Ti [...] to help you manage your pain. Notes: [place] with Chronic Pain Patient Goals No Karen [...] Results * XR Knee 3+ View With [place] Place Left (04/07/2025 11:57 AM EDT) Anatomical Region [...] documented as of this encounter Care Teams Political Worker Relationship Specialty Start Date End Date Chad Coughlin MD [address] [facility] [address] [place] [address] PCP - General Family Medicine 05/06/18 documented as of this encounter
[2025-04-28] VITALS (7 sets, daily range): BP systolic 153–193; BP diastolic 75–100; PULSE 61–84; RESP 17–19; TEMP 36.7; O2SAT 97–99; BMI 28.5
--- NOTE | 2025-04-28 12:58 | CT_ITS ---
FINAL REPORT TECHNIQUE: Thin section axial images are obtained through the abdomen and pelvis after intravenous contrast. Reconstruction images were obtained from the axial data. Exam was performed using dose reduction techniques. CLINICAL HISTORY: Abdominal pain, nausea, vomiting COMPARISON: 04/12/2025 FINDINGS: LUNG BASES: Lung bases are clear. Heart size is normal. LIVER: Homogeneous. No focal lesion. GALLBLADDER/BILIARY SYSTEM: Gallbladder is present. No gallstones. No biliary dilatation. SPLEEN: Unremarkable. PANCREAS: Unremarkable. ADRENALS: Unremarkable. KIDNEYS/URETERS/BLADDER: No hydronephrosis. Several small hypodense lesions are unchanged. Lesion in the medial upper pole of the left kidney measuring 11 mm is not a simple cyst. Unremarkable urinary bladder. GI TRACT: Small hiatal hernia. No small bowel obstruction. Post right hemicolectomy. Diverticulosis without diverticulitis. No acute GI tract abnormality. PELVIC ORGANS: Uterus unremarkable. LYMPH NODES/RETROPERITONEUM/MESENTERY: No lymphadenopathy. No abdominal aortic aneurysm. ABDOMINAL WALL: Small stable fat-containing midline ventral hernia. Stable fat-containing left inguinal hernia.. FREE FLUID: No ascites. BONES: No acute osseous abnormality. IMPRESSION: No acute findings. Stable ventral and left inguinal hernias. Reviewed, Interpreted and Dictated by Alley Watson MD Transcribed by Saira Subramanian Authenticated and [facility]
--- OUTSIDE RECORDS SUMMARY | 2025-04-28 13:01 | XMS_ITS | Encounter Summary ---
[facility] Address [address] [place] [address] Care Team Providers Care Name Plate Stamper Name Role Phone Chad Coughlin MD Primary Care Provi kaitlin Reason for Visit * Reason Onset Date Comments SYNERGY PAPERWORK 04/28/2025 Encounter Details Date Type Department Care Team (Late st Contact Info) Description 04/28/2025 Telephone [facility] [address] [phone] Gautam Araya APRN [address] [facility] [address] [place], [place] [id number] SYNERGY PAPERWORK Social History Tobacco Use Types Packs/Day Years [...] or training? Not on file Preferred Language Citizen Of [place] 04/06/2024 PHQ-2 Answer Date Recorded Retired PHQ-9: Brief Depression Severity Measure Score 12 05/05/2024 Comments No Sex and Gender Information Value Date Recorded Sex Assigned at Not on file Legal Sex Female 10:17 AM EDT Gender Identity Not on file Sexual Orientation Not on file documented as of this encounter Miscellaneous Notes * Telephone Encounter - Brenda Borden MA - 04/28/2025 11:11 AM EDT This paperwork will NOT be returned. Knee orthotics were not requested by patient or provider. HUB OK TO RELAY * Telephone Encounter - Johana Garcia RegSched Rep - 04/28/2025 10:45 AM EDT Provider: GAUTAM ARAYA APRN Caller: TAZ Relationship to Patient: NATHAN Reason for Call: TAZ FROM [employer] CALLED AND WOULD LIKE THE FORM SIGNED AND RETURNED SOON POSSIBLE IT WAS SENT 04/14/25 PLEASE ADVISE AND CALL TAZ IF YOU HAVE ANY QUESTIONS documented in this encounter Plan of Treatment Upcoming Encounters Date Type Department Care Team (Late st Contact Info) Description 05/10/2025 11:30 AM EDT Office Visit [facility] [address] [place] [address] ArayaAnitaeCHRISTINE 330 [facility] [address] [place] [address] 05/24/2025 2:30 PM EDT Office Visit [facility] [address] [facility] [address] [place] [address] Chad Coughlin MD [address] [facility] [address] [place] [address] Scheduled Procedures Name Priority Associated Diagnoses Date/Ti [...] to help you manage your pain. Notes: [place] with Chronic Pain Patient Goals No Karen [...] documented as of this encounter Care Teams Name Plate Stamper Relationship Specialty Start Date End Date Chad Coughlin MD [address] [place] [id number] PCP - General Family Medicine 05/06/18 documented as of this encounter
--- OUTSIDE RECORDS SUMMARY | 2025-04-28 13:01 | XMS_ITS | Encounter Summary ---
[facility] Address [address] [place] [address] Care Team Providers Care Supervisor Pile Driving Name Role Phone Chad Coughlin MD Primary Care Provi kaitlin Reason for Visit * Reason Onset Date Comments Med Refill 05/01/2020 Encounter Details Date Type Department Care Team (Late st Contact Info) Description 05/01/2020 Refill [facility] [address] [phone] Chad Coughlin MD [address] [place] [id number] Social History Tobacco Use Types Packs/Day Years [...] of losartan and have it sent to [id number]. documented in this encounter Plan of Treatment Upcoming Encounters Date Type Department Care Team (Late st Contact Info) Description 05/10/2025 11:30 AM EDT Office Visit [facility] [address] [facility] [address] [place] [phone] Michelle Hahn APRN 330 [facility] [address] [place], [place] [phone] 05/24/2025 2:30 PM EDT Office Visit [facility] [address] [facility] [address] [place] [address] Chad Coughlin MD [address] [facility] [address] [place], [place] [id number] Scheduled Procedures Name Priority Associated Diagnoses Date/Ti [...] Indicated Resolved Time Other Comment:Discharged from [facility] on 02/21/20 -Merry Bell RN, BSN, CIC - Infection Control 02/23/2020 02/23/2020 06/26/2023 2:54 PM E DT COVID (rule out) 06/26/2023 06/26/2023 06/26/2023 2:54 PM EDT COVID (rule out) 09/12/2023 09/12/2023 09/19/2023 9:08 PM EST COVID Screen (preop/placement) 11/09/2023 11/09/2023 11/09/2023 7:39 PM EDT MRSA 11/09/2023 11/09/2023 documented as of this encounter Care Teams Supervisor Pile Driving Relationship Specialty Start Date End Date Chad Coughlin MD [address] [place] [address] PCP - General Family Medicine 05/06/18 documented as of this encounter
--- OUTSIDE RECORDS SUMMARY | 2025-04-28 13:01 | XMS_ITS | Encounter Summary ---
[facility] Address [address] [place] [address] Care Team Providers Care Bow Tacker Name Role Phone Chad Coughlin MD Primary Care Provi kaitlin Encounter Details Date Type Department Care Team (Late st Contact Info) Description 04/25/2025 Telephone [facility] 330 [facility] [address] [place] [address] Michelle Hahn APRN [address] [facility] [address] [place] [address] Social History Tobacco Use Types Packs/Day Years [...] or training? Not on file Preferred Language Nepalese 04/06/2024 PHQ-2 Answer Date Recorded Retired PHQ-9: [...] Description 05/10/2025 11:30 AM EDT Office Visit [facility] [address] [phone] Michelle Hahn APRN [address] [address] 05/24/2025 2:30 PM EDT Office Visit [facility] [address] [phone] Chad Coughlin MD [address] [address] Scheduled Procedures Name Priority Associated Diagnoses Date/Ti [...] to help you manage your pain. Notes: [place] with Chronic Pain Patient Goals No Karen [...] documented as of this encounter Care Teams Bow Tacker Relationship Specialty Start Date End Date Chad Coughlin MD [address] [place] [address] PCP - General Family Medicine 05/06/18 documented as of this encounter
--- OUTSIDE RECORDS SUMMARY | 2025-04-28 13:01 | XMS_ITS | Encounter Summary ---
[facility] Address [address] [place] [address] Care Team Providers Care Golf Teacher Name Role Phone Chad Coughlin MD Primary Care Provi kaitlin Reason for Visit * Reason Onset Date Comments Advice Only 04/14/2025 Encounter Details Date Type Department Care Team (Late st Contact Info) Description 04/14/2025 Telephone [facility] [address] [address] Gautam Hahn APRN 330 [place] [phone] Advice Only Social History Tobacco Use Types [...] or training? Not on file Preferred Language Mauritian 04/06/2024 PHQ-2 Answer Date Recorded Retired PHQ-9: Brief Depression Severity Measure Score 12 05/05/2024 Comments No Sex and Gender Information Value Date Recorded Sex Assigned at Not on file Legal Sex Female 10:17 AM EDT Gender Identity Not on file Sexual Orientation Not on file documented as of this encounter Miscellaneous Notes * Telephone Encounter - Alanis Franco RN - 04/14/2025 5:01 PM EDT Pt. notified * Telephone Encounter - Alanis Franco RN - 04/14/2025 4:40 PM EDT Spoke to pt. She stated she is ready to scream. Pt states both legs burning like fire. All week. Waist down has tortured her. Pt. States her groin and hips are hurting so bad, she can't put her socksand underwear on herself. She stated she couldn't sleep any last night. Pt. Said she is crying and screaming all night. Pt. States she can't take steroids due to kidneys. She said she doesn't know what to do. She stated it's burning pain up and down her legs and hips and groin. She went to ER 2 days ago and she said all they did was give her a shot of Dilaudid. * Telephone Encounter - Ivanna Cobos RegSched Rep - 04/14/2025 3:20 PM EDT Caller: Ritu Hedrick Relationship to patient: Self Best call back number: [phone] Patient is needing: PT CALLING BACK TO CHECK ON THIS AND SEE IF GAUTAM IS STILL IN TODAY, SHE IS HOPING TO SPEAK TO HER AND MAYBE GET SOME MEDICINE BEFORE THE WEEKEND. PLEASE CALL BACK SOON POSSIBLE. * Telephone Encounter - Cecelia Rdz RegSched Rep - 04/14/2025 1:46 PM EDT Hub staff attempted to follow warm transfer process and was unsuccessful Caller: Ritu Hedrick Relationship to patient: Self Best call back number: [phone] Patient is needing: PT WANTS TO SPEAK TO IMELDA ABOUT HER PAIN -- PT WENT TO ER THIS WEEK AND WAS TOLD TO CALL FOR GAUTAM documented in this encounter Plan of Treatment Upcoming Encounters Date Type Department Care Team (Late st Contact Info) Description 05/10/2025 11:30 AM EDT Office Visit [facility] [address] [phone] Gautam Hahn APRN 330 [facility] 100 [place] [address] 05/24/2025 2:30 PM EDT Office Visit [facility] 1760 [facility] 603 [place] [phone] Chad Coughlin MD 1760 [facility] 603 [place] [address] Scheduled Procedures Name Priority Associated Diagnoses Date/Ti [...] to help you manage your pain. Notes: [place] with Chronic Pain Patient Goals No Karen [...] documented as of this encounter Care Teams Golf Teacher Relationship Specialty Start Date End Date Chad Coughlin MD 1760 [facility] 603 [place] [address] PCP - General Family Medicine 05/06/18 documented as of this encounter
--- OUTSIDE RECORDS SUMMARY | 2025-04-28 13:01 | XMS_ITS | Encounter Summary ---
[facility] Address [address] [place] [address] Care Team Providers Care Kelp Gatherer Name Role Phone Chad Coughlin MD Primary Care Provi kaitlin Reason for Visit * Reason Onset Date Comments MEDICAL RECORDS 04/19/2025 Encounter Details Date Type Department Care Team (Late st Contact Info) Description 04/19/2025 Telephone [facility] RHEUMATOLOGY [address] [address] Michelle Hahn APRN [address] [phone] MEDICAL RECORDS Social History Tobacco Use Types Packs/Day Years [...] or training? Not on file Preferred Language Gabonese 04/06/2024 PHQ-2 Answer Date Recorded Retired PHQ-9: Brief Depression Severity Measure Score 12 05/05/2024 Comments No Sex and Gender Information Value Date Recorded Sex Assigned at Not on file Legal Sex Female 10:17 AM EDT Gender Identity Not on file Sexual Orientation Not on file documented as of this encounter Miscellaneous Notes * Telephone Encounter - Alanis Franco RN - 04/19/2025 5:55 PM EDT Scam * Telephone Encounter - Zandra Thomas RegSched Rep - 04/19/2025 3:03 PM EDT [facility] received a fax that requires your attention. The document has been indexed to the patient???s chart for your review. Reason for sending: PRIOR AUTHORIZATION PRESCRIPTION REQUEST Documents Description: MEDICATION - 04/14/25 Name of Sender: [employer]ATHAN [employer] Date Indexed: 04/19/25 Notes (if needed): documented in this encounter Plan of Treatment Upcoming Encounters Date Type Department Care Team (Late st Contact Info) Description 05/10/2025 11:30 AM EDT Office Visit [facility] RHEUMATOLOGY [address] [place] [address] Michelle Hahn APRN 330 [facility] [address] [address] [place] [address] 05/24/2025 2:30 PM EDT Office Visit [facility] 1760 [facility] 603 [place] [address] Chad Coughlin MD 1760 [facility] 603 [place], [place] [phone] Scheduled Procedures Name Priority Associated Diagnoses Date/Ti ms CV IR MYELOGRAM, LUMBAR Lumbar stenosis with [...] to help you manage your pain. Notes: [place] with Chronic Pain Patient Goals No Karen [...] documented as of this encounter Care Teams Kelp Gatherer Relationship Specialty Start Date End Date Chad Coughlin MD 1760 [facility] [address] [place] [address] PCP - General Family Medicine 05/06/18 documented as of this encounter
--- NOTE | 2025-04-28 13:02 | HMH.EDGENADL ---
Discharge Plan Disposition Patient Disposition: Home, Self-Care Condition: Good Prescriptions Prescriptions: No Action ferrous sulfate 325 mg (65 mg iron) tablet PO Patient Comments: TAKE 1 TABLET BY MOUTH EVERY DAY gabapentin 600 mg tablet 600 mg PO TID Patient Comments: TAKE 1 TABLET BY MOUTH THREE TIMES A DAY losartan 100 mg tablet 100 mg PO DAILY Patient Comments: TAKE 1 TABLET BY MOUTH EVERY DAY metoprolol tartrate 25 mg tablet 25 mg PO BID Patient Comments: TAKE 1 TABLET BY MOUTH TWICE A DAY oxycodone 10 mg tablet 10 mg PO QID Patient Comments: TAKE 1 TABLET BY MOUTH FOUR TIMES A DAY DNF-10/05/24 Referrals Follow up/Referrals: Chad Coughlin [Primary Care Provider, Medical] - See instructions Activity Restrictions/Add. Instructions Additional Instructions/Restrictions: Please follow up with primary care about this pain you are experiencing. If you have any new or worsening symptoms please return. Clinical Impressions Clinical Impression: Body aches Print Language Print Language: Macedonian Discharge ED Provider: Clemente Koch Adult HPI General Chief complaint: PAIN Stated complaint: Vomiting, cant' sleep, body aches, chills Time Seen by Provider: 04/28/25 12:50 Mode of Arrival: Ambulatory Source of Information: Patient Description of Symptoms (Recalled from ER Triage Doc. by RN): patient presents to the ED for Severe nausea and vomiting that has been going on for the last 2 days. Patient also endorses 10/10 body aches and bilateral leg burning. Pateint recently diagnosed with fibromyalgia, osteoarthritis of the knees and rheumatoid arthritis and has not yet been prescribed medications for those. Patient also states she has lower back pain. History of Present Illness HPI narrative: This is an 85-year-old female patient, with past medical history of rheumatoid arthritis, osteoarthritis, and fibromyalgia, who is presenting to the emergency department today for evaluation of multiple complaints. Patient states that she is having diffuse b of all of her skin all over her body. She also states that she is having abdominal pain that is worse in the bilateral lower quadrants that is associated with nausea and vomiting. She is not having constipation or diarrhea. No hematochezia, melena, or hematemesis. She is not having chest pain or shortness of breath. She denies urinary symptoms. Related Data Home Medications ?Medication ?Instructions ?Recorded ?Confirmed gabapentin 600 mg tablet 600 mg PO TID 10/14/24 11/28/24 losartan 100 mg tablet 100 mg PO DAILY 10/14/24 11/28/24 metoprolol tartrate 25 mg tablet 25 mg PO BID 10/14/24 11/28/24 oxycodone 10 mg tablet 10 mg PO QID 10/14/24 11/28/24 ferrous sulfate 325 mg (65 mg mg PO 10/24/24 11/28/24 iron) tablet Allergies Allergy/AdvReac Type Severity Reaction Status Date / Time morphine (MORPHINE) Allergy Unknown RESP. DIFF. Verified 04/11/25 23:27 [facility] Disclaimer: The information contained in this section may have been updated after the patient was seen, as this information can be updated by other users. Social History Smoking Status: Never smoker alcohol intake: never current occupational status: retired Travel in the last 8 weeks?: None Have you lived/traveled outside US in past 30 days?: No Contact w/someone who lives/traveled outside US past 30 days?: No Exposure to someone with infectious disease in past 14 days?: No Do you have a fever (greater than 100.4 F or 38 C)?: No Have you tested positive for COVID-19?: No Exposed to someone with COVID-19 in past 14 days?: No Do you have a sore throat?: No Do you have a cough?: No Do you have any weakness?: No Do you have any diarrhea?: No Are you experiencing any unusual bleeding?: No Do you have any muscle aches/pain?: No Do you have any abdominal pain?: No Are you experiencing loss of taste or smell?: No Other Medical History Have you received the Pneumonia Vaccine: Yes ROS Obtained: Yes Systems reviewed as appropriate & no additional complaints except as documented Physical Exam General General appearance: other (See MDM) Respiratory Respiratory exam: Present other (See MDM) Cardiovascular Cardiovascular exam: Present other (See MDM) Neurological Exam Neurological exam: Present other (See MDM) Medical Decision Making Medical Records Medical records reviewed: Yes I reviewed the patient's medical records. Screening: Per USPSTF and CDC recommendations, given the prevalence of disease in our region, it is our hospital?s policy to screen for HIV and viral Hepatitis for all patients aged 18 and over and those with ongoing risk factors. Chaim Inquiry Pt receiving controlled substance: No Chaim was queried for this patient: No Vital Signs: 04/28/25 12:45 04/28/25 13:01 04/28/25 13:30 Temperature 98.0 F Temperature Source Temporal Artery Scan Pulse Rate 75 84 Pulse Rate [Right Radial] 83 Respiratory Rate 18 Blood Pressure 153/100 H 169/100 H Blood Pressure [Right Arm] 162/75 H Blood Pressure Mean Blood Pressure Mean [Right Arm] 104 Blood Pressure Source [Right Arm] Automatic Cuff Blood Pressure Position [Right Arm] Sitting 02 Sat by Pulse Oximetry 98 97 99 Oxygen Delivery Method Room Air 04/28/25 14:00 04/28/25 14:30 04/28/25 15:02 Temperature Temperature Source Pulse Rate 61 67 64 Pulse Rate [Right Radial] Respiratory Rate 19 17 Blood Pressure 169/90 H 193/93 H 165/80 H Blood Pressure [Right Arm] Blood Pressure Mean 113 119 Blood Pressure Mean [Right Arm] Blood Pressure Source [Right Arm] Blood Pressure Position [Right Arm] 02 Sat by Pulse Oximetry 98 98 98 Oxygen Delivery Method Room Air Room Air 04/28/25 15:45 Temperature 98.0 F Temperature Source Pulse Rate 64 Pulse Rate [Right Radial] Respiratory Rate 17 Blood Pressure 165/80 H Blood Pressure [Right Arm] Blood Pressure Mean Blood Pressure Mean [Right Arm] Blood Pressure Source [Right Arm] Blood Pressure Position [Right Arm] 02 Sat by Pulse Oximetry Oxygen Delivery Method Lab Data Lab Results 04/28/25 13:10: WBC 7.8, RBC 3.98 L, Hgb 12.4, Hct 37.7, MCV 94.7, MCH 31.2, MCHC 32.9, RDW 13.2, Plt Count 145, MPV 11.4 H, Neut % (Auto) 69.9, Lymph % (Auto) 21.4, Canadian % (Auto) 7.1, Eos % (Auto) 0.8, Baso % (Auto) 0.5, Neut # (Auto) 5.5, Lymph # (Auto) 1.7, Canadian # (Auto) 0.6, Eos # (Auto) 0.1, Baso # (Auto) 0.0, Sodium 138, Potassium 4.6, Chloride 108 H, Carbon Dioxide 21 L, Anion Gap 13.6, BUN 33 H, Creatinine 1.20 H, Estimated Creat Clear 40, Estimated GFR 43 L, Est GFR ( Amer) 52 L, Glucose 108 H, Calcium 9.7, Total Bilirubin 1.0, AST 27, ALT 14, Alkaline Phosphatase 94, Total Creatine Kinase 89, Troponin I < 0.01, Total Protein 7.1, Albumin 4.3, Globulin 2.8, Albumin/Globulin Ratio 1.5, Lipase 104 04/28/25 14:28: SARS-CoV-2 (PCR) Not detected, Influenza Type A (PCR) Not detected, Influenza Type B (PCR) Not detected, RSV (PCR) Not detected, Rhinovirus (PCR) Not detected 04/28/25 13:10 04/28/25 13:10 Orders (Tests/Meds): ED MEDICATIONS Discontinued Medications Generic Name Dose Route Start Last Admin Trade Name Freq PRN Reason Stop Dose Admin Acetaminophen 1,000 mg 04/28/25 12:58 04/28/25 13:06 Acetaminophen 500mg Tab PO 04/28/25 12:59 1,000 mg ONCE ONE Administration Hydromorphone HCl 1 mg 04/28/25 13:20 04/28/25 13:27 Hydromorphone 2mg/Ml Syringe IV 04/28/25 13:21 1 mg ONCE ONE Administration Lactated Ringer's 1,000 mls @ 999 mls/hr 04/28/25 12:58 04/28/25 15:13 Lactated Ringer's 1000 Ml Bag IV 04/28/25 13:58 Infused .Q1H1M ONE Infusion Iopamidol 75 ml 04/28/25 14:24 04/28/25 14:26 Iopamidol-370 (76%);100ml Bottle IV 04/28/25 14:25 75 ml ONCE ONE Administration Ketorolac Tromethamine 15 mg 04/28/25 12:58 04/28/25 13:06 Ketorolac 15mg/Ml Vial IV 04/28/25 12:59 15 mg ONCE ONE Administration Methocarbamol 1,000 mg 04/28/25 13:00 04/28/25 13:06 Methocarbamol 500mg Tablet PO 04/28/25 13:01 1,000 mg ONCE ONE Administration Oxycodone HCl 10 mg 04/28/25 15:33 04/28/25 15:43 Oxycodone 5mg Immediate Release Tablet PO 04/28/25 15:34 10 mg ONCE ONE Administration Sodium Chloride 10 ml 04/28/25 14:24 04/28/25 14:26 Sodium Chloride 0.9% 10ml Syr (Rad Only) IV 04/28/25 14:25 10 ml ONCE ONE Administration ORDERS Category Date Time Status CT abdomen pelvis w con Stat Cat Scan 04/28/25 12:58 Completed CBC w/Auto Diff [Complete Blood Count Auto Diff] Stat Lab 04/28/25 13:10 Completed CK [Creatine Kinase] Stat Lab 04/28/25 13:10 Completed CMP [Comprehensive Metabolic Panel] Stat Lab 04/28/25 13:10 Completed Lipase Stat Lab 04/28/25 13:10 Completed Mini Respiratory Panel Stat Lab 04/28/25 14:28 Completed Troponin I Stat Lab 04/28/25 13:10 Completed ECG Data Tracing #1: I reviewed this ECG and interpreted as documented below: EKG personally interpreted by me demonstrates sinus bradycardia with a rate of 58 bpm, normal axis, no IL prolongation, narrow QRS, no QTc prolongation. No ST elevation or depression. No overt signs of ischemia or rhythm Medical Decision Narrative: In summary, this is an 85-year-old female patient who is presenting to the emergency department today for diffuse body aches, abdominal pain, nausea, and vomiting. Comorbidities include history of fibromyalgia, osteoarthritis, and rheumatoid arthritis. On initial evaluation of the patient they were resting comfortably in no acute distress and nontoxic in appearance. They are hemodynamically stable, saturating well room air, and are neurologically intact. On physical examination of the patient she is appropriately alert and interactive with a GCS of 15. Heart and lungs are clear to auscultation bilaterally. She has tenderness in her bilateral lower quadrants of her abdomen. No obvious peritonitis. No lower extremity erythema or edema. Differential diagnosis includes COVID, flu, rhabdomyolysis, ACS/GA, pancreatitis, intra-abdominal abscess, diverticulitis, among others Initial inventions to include hematologic labs including a CK as well as a CT scan of the abdomen and pelvis given her tenderness noted on exam. Labs personally interpreted by me demonstrate no evidence of leukocytosis or actionable anemia. No significant electrolyte derangements or evidence of acute kidney injury. Troponin is less than 0.01 and her symptoms have been going on since last night so we will not obtain a delta troponin. Mini respiratory panel was negative for viral infection. CK is within normal limits suggesting against rhabdomyolysis as the cause of her symptoms. CT scan of the abdomen and pelvis was personally interpreted by me and demonstrates no evidence of large volume pneumoperitoneum. Official radiology read is in agreement and states there is no acute abnormality. During the patient's stay in the emergency department we did treat her pain with Toradol, Tylenol, and Robaxin. The patient was unhappy with this treatments and began requesting Dilaudid by name. We did administer 1 mg of Dilaudid and on repeat reassessment she stated that her symptoms had improved and she was asking for additional Dilaudid. This was concerning in the setting of a completely normal workup so I did not administer additional Dilaudid. She did tell me that she is on oxycodone 10 mg at home and that she missed her dose this morning. I have verified this through PDMP. Therefore we administered 10 mg of oxycodone prior to discharge. I informed the patient of her results and workup findings and she was ultimately reassured. At this time all questions were answered and all parties were agreeable with the decision to discharge home. Critical Care Critical Care Time Critical Care Time: No
--- OUTSIDE RECORDS SUMMARY | 2025-04-28 13:02 | XMS_ITS | Encounter Summary ---
[facility] [address] [place] [address] Care Team Providers Care Mowing Machine Operator Name Role Phone Chad Coughlin MD Primary Care Provi kaitlin Encounter Details Date Type Department Care Team (Late st Contact Info) Description 01/09/2025 Results Follow-Up [facility] RHEUMATOLOGY 330 [facility] 100 [place] [address] Michelle Hahn APRN 330 [place] [phone] Social History Tobacco Use Types Packs/Day Years [...] or training? Not on file Preferred Language Welsh 04/06/2024 PHQ-2 Answer Date Recorded Retired PHQ-9: [...] Visit [facility] RHEUM[facility] [address] [phone] Michelle Hahn APRN [address] [address] 05/24/2025 2:30 PM EDT Office Visit [facility] FAMILY MEDICINE [address] [phone] Chad Coughlin MD [address] [address] Scheduled Procedures Name Priority Associated Diagnoses Date/Ti [...] to help you manage your pain. Notes: [place] with Chronic Pain Patient Goals No Karen [...] documented as of this encounter Care Teams Mowing Machine Operator Relationship Specialty Start Date End Date Chad Coughlin MD 1760 [place] [address] PCP - General Family Medicine 05/06/18 documented as of this encounter
--- OUTSIDE RECORDS SUMMARY | 2025-04-28 13:02 | XMS_ITS | Encounter Summary ---
Author Organization [facility] Address [address] [place] [address] Care Team Providers Care Service Desk Agent Name Role Phone Chad Coughlin MD [...] or training? Not on file Preferred Language Salvadorean 04/06/2024 PHQ-2 Answer Date Recorded Retired PHQ-9: [...] Description 05/10/2025 11:30 AM EDT Office Visit [facility] RHEUM[facility]OLOG[facility] [address] [phone] Michelle Hahn APRN [address] [address] 05/24/2025 2:30 PM EDT Office Visit [facility] [address] [phone] Chad Coughlin MD [address] [address] Scheduled Procedures Name Priority Associated Diagnoses Date/Ti [...] to help you manage your pain. Notes: [place] with Chronic Pain Patient Goals No Karen [...] documented as of this encounter Care Teams Service Desk Agent Relationship Specialty Start Date End Date Chad Coughlin MD 1760 [place] [address] PCP - General Family Medicine 05/06/18 documented as of this encounter
--- OUTSIDE RECORDS SUMMARY | 2025-04-28 13:02 | XMS_ITS | Encounter Summary ---
Author Organization [facility] Address [address] [place] [address] Care Team Providers Care Banbury Operator Name Role Phone Chad Coughlin MD [...] or training? Not on file Preferred Language Australian 04/06/2024 PHQ-2 Answer Date Recorded Retired PHQ-9: [...] 11:30 AM EDT Office Visit [facility] RHEUM[facility]OLOG[facility] [address] [phone] Michelle Hahn APRN [address] [address] 05/24/2025 2:30 PM EDT Office Visit [facility] [address] [phone] Chad Coughlin MD [address] [place] [address] [address] Scheduled Procedures Name Priority Associated Diagnoses Date/Ti [...] to help you manage your pain. Notes: [place] with Chronic Pain Patient Goals No Karen [...] documented as of this encounter Care Teams Banbury Operator Relationship Specialty Start Date End Date Chad Coughlin MD 1760 [place] [address] PCP - General Family Medicine 05/06/18 documented as of this encounter
--- OUTSIDE RECORDS SUMMARY | 2025-04-28 13:02 | XMS_ITS | Encounter Summary ---
[facility] Address [address] [place] [address] Care Team Providers Care Neurology Director Name Role Phone Chad Coughlin MD Primary Care Provi kaitlin Encounter Details Date Type Department Care Team (Late st Contact Info) Description 03/21/2025 Refill [facility] [address] [phone] Chad Coughlin MD [address] [place] [address] Social History Tobacco Use Types Packs/Day Years [...] or training? Not on file Preferred Language Prydeinig 04/06/2024 PHQ-2 Answer Date Recorded Retired PHQ-9: [...] Hedrick Relationship: Self Best call back number: [phone] Requested Prescriptions: Requested Prescriptions Pending Prescriptions Disp Refills losartan (COZAAR) 100 MG tablet Sig: Take 1 tablet by mouth Daily. Pharmacy where request should be sent: [id number] - [place], [place] - [facility] JELENA GARCIA AT [facility] & - [phone] - [phone] FX Last office visit with prescribing clinician: [...] Office Visit [facility] RHEUMATOLOGY [address] [phone] Michelle Hahn APRN 330 [facility] 100 [place], [place] [phone] 05/24/2025 2:30 PM EDT Office Visit [facility] [address] [phone] Chad Coughlin MD 1760 [facility] [address] [place] [address] Scheduled Procedures Name Priority Associated Diagnoses Date/Ti [...] to help you manage your pain. Notes: [place] with Chronic Pain Patient Goals Karen Alcazar [...] documented as of this encounter Care Teams Neurology Director Relationship Specialty Start Date End Date Chad Coughlin MD [address]60 [facility] [phone] PCP - General Family Medicine 05/06/18 documented as of this encounter
--- OUTSIDE RECORDS SUMMARY | 2025-04-28 13:02 | XMS_ITS | Clinical Summary ---
Author Organization [facility] Address [address] [place] [address] Care Team Providers Care Special Education Superintendent Name Role Phone Chad Coughlin MD Primary [...] (Four) Times a Day. 60 tablet 3 4 Active aspirin 81 MG EC tabletIndications :VTE Prophylaxis Take 1 tablet by mouth Every 12 (Twelve) Hours. Indications: VTE Prophylaxis 4 Active oxyCODONE (ROXICODONE) 10 MG tablet 1 tab QID 4 Active hydroxychloroquin e (PLAQUENIL) 200 MG tablet Take 1 tablet by mouth Daily. 30 tablet 5 4 Active ferrous sulfate 325 (65 FE) MG tablet Take 1 tablet by mouth Daily. 4 Active metoprolol tartrate (LOPRESSOR) 25 MG tablet TAKE 1 TABLET BY MOUTH TWICE A DAY 180 tablet 1 4 Active rOPINIRole (REQUIP) 1 MG tablet Take 1 tablet by mouth Every Night. Take 1 hour before bedtime. 90 tablet 1 5 Active gabapentin (NEURONTIN) 600 MG tabletIndications :Spinal stenosis of lumbar region with neurogenic claudication,Lumb osacral radiculopathy at L5,Status post lumbar spinal fusion Take 1 tablet by mouth 3 (Three) Times a Day. 90 tablet 1 5 Active losartan (COZAAR) 100 MG tablet Take 1 tablet by mouth Daily. 90 tablet 1 5 Active alendronate (FOSAMAX) 70 MG tablet Take 1 tablet by mouth Every 7 (Seven) Days. 4 tablet 11 5 Active fosfomycin (MONUROL) 3 g pack Take 1 packet as needed by oral route as directed for 60 days. 5 Active Magnesium Oxide -Mg Supplement 400 (240 Mg) MG tablet Take 1 tablet by mouth Daily. Active methylPREDNISolon e (MEDROL) 4 MG dose pack Take as directed on package instructions. 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 [...] Encounters Date Type Department Care Team Description 04/28/2025 Telephone [facility] RHEUMATOLOGY [address] [place] [phone] Michelle Hahn APRN SYNERGY PAPERWORK 04/25/2025 Telephone [facility] RHEUMATOLOGY [address] [place] [phone] Michelle Hahn APRN 04/19/2025 Telephone [facility] RHEUMATOLOGY [address] [place] [phone] Michelle Hahn APRN MEDICAL RECORDS 04/14/2025 Telephone [facility] RHEUMATOLOGY [address] [place] [phone] Michelle Hahn APRN Advice Only 04/07/2025 11:45 AM EDT Ancillary Procedure [facility]OP[facility]TS MEDICINE [address] [facility] [address] [place] [address] 04/07/2025 10:50 AM EDT Office Visit [facility]OP[facility] & [facility]ORTS MEDICINE [address] [facility] [address] [place] [address] Ronn Gerber MD S/P TKR (total knee replacement), left (Primary Dx); Postoperative examination 04/07/2025 Travel 03/28/2025 Telephone [facility] RHEUMATOLOGY 330 [facility] 100 [place] [phone] Michelle Hahn APRN Bone Density Scan 03/22/2025 1:58 PM EDT - 03/22/2025 11:59 PM EDT Hospital Encounter [facility] D[facility] [address] [place] [phone] Michelle Hahn APRN Postmenopause Discharge Disposition: Home or Self Care 03/22/2025 Travel 03/21/2025 Refill [facility] FAMILY MEDICINE 1760 [facility] 603 [place] [address] Chad Coughlin MD 03/01/2025 Telephone [facility] 1760 [facility] 603 [place] [address] Chad Coughlin MD Advice Only 02/28/2025 Refill [facility] 1760 [facility] 603 [place] [address] Chad Coughlin MD Spinal stenosis of lumbar region with neurogenic claudication; Lumbosacral radiculopathy at L5; Status post lumbar spinal fusion from Last 3 Months Immunizations Immunization Administration [...] or training? Not on file Preferred Language Macedonian 04/06/2024 PHQ-2 Answer Date Recorded Retired PHQ-9: [...] Office Visit [facility] RHEUMATOLOGY [address] [phone] Michelle Hahn APRN 330 [facility] 100 [place], [place] [phone] 05/24/2025 2:30 PM EDT Office Visit [facility] [address] [facility] [address] [place] [address] Chad Coughlin MD [address] [place] [address] Scheduled Procedures Name Priority Associated Diagnoses Date/Ti [...] 75+ series) 2016 COVID-19 Vaccine ( season) 2025 06/21/2024, 04/24/2023, 06/11/2022, Additional history exists ANNUAL WELLNESS VISIT 05/05/2025 05/05/2024 , 11/20/2022, 05/29/2020, Additional history exists INFLUENZA VACCINE 05/24/2025 06/21/2024, , 06/21/2024, Additional history exists COLONOSCOPY 07/25/2025 07/25/2022, 09/2021, 05/11/2017, Additional history exists COLORECTAL CANCER SCREENING 07/25/2025 MAMMOGRAM 06/09/2026 06/09/2024, 05/24, 06/07/2024, Additional history exists DXA SCAN 03/22/2027 03/22/2025, 12/20/2020 TDAP/TD VACCINES (2 - Td or Tdap) 03/08/2035 025 Pneumococcal Vaccine 50+ Completed 025, 06/11/2017, 05/26/2016 [...] to help you manage your pain. Notes: [place] with Chronic Pain Patient Goals No Karen [...] Gerber MD Medical Devices Implanted Type Area Internet Marketing Strategist Device Identifier Shelf Expiration Date Model / Serial / Lot Kt Matrx Floseal Hemo Fast Prep 10ml - [id number] Implanted:Qty: 1 on 01/20/2020 by Pacheco Tenorio MD at [facility] Implant [facility] [id number] 09/18/2020 [id number] / / [id number] Kt Matrx Floseal Hemo Fast Prep 10ml - [id number] Implanted:Qty: 1 on 01/27/2020 by Pacheco Tenorio MD at [facility] Implant N/A: Spine Lumbar CERNA GetApp [id number] / / [id number] Duragen Pls 1x3in Ea/5 - [id number] Implanted:Qty: 1 on 01/27/2020 by Pacheco Tenorio MD at [facility] Implant N/A: Spine Lumbar INTEGRA 04/23/2022 [id number] / / [id number] Insrt Art/Kn Legion Cr Hf Xlpe Sz3to4 12mm - [id number] Implanted:Qty: 1 on 04/05/2024 by Ronn Gerber MD at [facility] Implant Left: Knee [employer] NEPHEW [id number] 03/13/2033 [id number] / / [id number] Totl Kn William Kaur Nephew - [id number] Implanted:Qty: 1 on 04/05/2024 by Ronn Gerber MD at [facility] Implant Left: Knee KAUR [employer] NEPHEW CAPKNEETOT [id number] / / Dev Contrl Tiss Stratafix Spiral Mncryl Ud 3/0 Pls 60cm - [id number] Implanted:Qty: 1 on 04/05/2024 by Ronn Gerber MD at [facility] Implant Left: Knee ETHICON ENDO SURGERY DIV OF J AND J 09/23/2025 [id number] / / [id number] Dev Contrl Tiss Stratafix Symm Pds Plus Jamie Ct-1 45cm - [id number] Implanted:Qty: 1 on 04/05/2024 by Ronn Gerber MD at [facility] Implant Left: Knee ETHICON DIV OF J AND J 08/23/2025 [id number] / / [id number] Cmt Bone Palacos R Hi/Visc 1x40 - [id number] Implanted:Qty: 2 on 04/05/2024 by Ronn Gerber MD at [facility] Implant Left: Knee [employer]comm Software Solutions[employer]US MEDICAL 07/23/2028 [id number] / / [id number] Base Tib/Kn Gen2 Nonpor Ti Sz3 Lt - [id number] Implanted:Qty: 1 on 04/05/2024 by Ronn Gerber MD at [facility] Implant Left: Knee [employer] [id number] 09/15/2033 [id number] / / [id number] Patella Resrf Gen2 7.5x32mm - [id number] Implanted:Qty: 1 on 04/05/2024 by Ronn Gerber MD at [facility] Implant Left: Knee [employer]W [id number] 09/27/2033 [id number] / / [id number] Comp Fem Legion Oxinium Cr Nrw Sz5 Lt - [id number] Implanted:Qty: 1 on 04/05/2024 by Ronn Gerber MD at [facility] Implant Left: Knee [employer]HEW [id number] 10/09/2033 [id number] / / [id number] Procedures Procedure Name Priority Date/Time Associated Diagnosis Comments XR KNEE 3+ VW W SUNRISE LEFT Routine 04/07/2025 11:57 AM EDT S/P TKR (total knee replacement), left DEXA BONE DENSITY AXIAL Routine 03/22/2025 2:19 PM EDT Postmenopause SCANNED - MAMMO 06/09/2024 SCANNED - COLONOSCOPY 07/25/2022 from Last 3 Months or Most Recently Relevant to Health Maintenance Results * XR Knee 3+ View With [place] Left (04/07/2025 11:57 AM EDT) Anatomical Region Laterality Modality Lower Extremities, Knee Left Radiogra phic Imaging Narrative 04/07/2025 12:13 PM EDT Left Knee Radiographs Indication: status-post left total knee arthroplasty Views: AP, lateral, and sunrise views of the left knee Comparison: no change compared to prior study, 05/06/2024 Findings: The components are well aligned, with no signs of loosening or failure. us Ronn Gerber MD IMG DIAGNOSTIC IMAGING ORDERAB [...] fall-prevention measurements. The National Osteoporosis Foundation recommends (http://www.nof.org/hcp/practice/xfapyddk-cyp-lrthnlsg-guidelines/clinicians-omi de) that FDA-approved medical therapies be considered [...] the left hip with 95% confidence is 0.252316 gm/cm2 at the hip and 0.079219 g/cm2 at the lumbar spine. Report dictated by: Renata Huynh PA-c I have personally reviewed this case and agree with the findings above: Electronically Signed: Edwardo Pathak MD 03/22/2025 5:00 PM EDT Workstation ID: [id number] Narrative 03/22/2025 5:00 PM EDT DUAL-ENERGY X-RAY [...] normal patients. According to criteria established by the[facility], patients with T-scores between 1.0 [...] exercises and fall-prevention measurements. The NationalOsteoporosis Foundation recommends(http://www.nof.org/hcp/practice/mjynaequ-dxs-fovyijhv-guidelines/clin ician s-guide) that FDA-approved medical therapies be [...] at the left hipwith 95% confidence is 0.578616 gm/cm2 at the hip and 0.895096 g/cm2 atthe lumbar spine. Report dictated by: Renata Huynh PA-c I have personally reviewed this case and agree with the findings above: Electronically Signed: Edwardo Pathak MD 03/22/2025 5:00 PM EDT Workstation ID: [id number] Michelle Hahn ORTHOPEDIC PHYSICAL THERAPIST IMG DXA ORDERABLES Final Re sult * MAMMO Scan (06/09/2024) Anatomical Region Laterality Modality Other Sha Crowe Jr., MD CHART REVIEW [facility] Final Result * SCANNED - COLONOSCOPY (07/25/2022) [facility] CHART REVIEW TABS Final Re sult from Last 3 Months or Most Recently Relevant to Health Maintenance Additional Health Concerns Active Problems Noted Date Diagnosed Date 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
--- OUTSIDE RECORDS SUMMARY | 2025-04-28 13:02 | XMS_ITS | Encounter Summary ---
[facility] Address [address] [place] [address] Care Team Providers Care Binder Cutter Hand Name Role Phone Chad Coughlin MD Primary Care Provi kaitlin Encounter Details Date Type Department Care Team (Late Contact Info) Description 11/04/2016 External CPT II STAFF ENGINEER - [facility] Social History Tobacco Use [...] Description 05/10/2025 11:30 AM EDT Office Visit [facility] [address] [place] [address] Michelle Hahn APRN [address] [facility] [address] [place] [address] 05/24/2025 2:30 PM EDT Office Visit [facility] 1760 [facility] [address]03 [place] [address] Chad Coughlin MD 1760 [facility] [address] [place] [phone] Scheduled Procedures Name Priority Associated Diagnoses Date/Ti [...] 7:31 PM EDT Other Comment:Discharged from [facility] on 02/21/20 -Merry Bell RN, BSN, CIC - Infection Control 02/23/2020 02/23/2020 06/26/2023 2:54 PM E DT COVID Screen (preop/placement) 02/23/2020 02/23/2020 02/23/2020 10:57 AM EDT COVID (rule out) 06/26/2023 06/26/2023 06/26/2023 2:54 PM EDT COVID (rule out) 09/12/2023 09/12/2023 09/19/2023 9:08 PM EST COVID Screen (preop/placement) 11/09/2023 11/09/2023 11/09/2023 7:39 PM EDT MRSA 11/09/2023 11/09/2023 documented as of this encounter Care Teams Binder Cutter Hand Relationship Specialty Start Date End Date Chad Coughlin MD [address] [facility] [address] [place] [address] PCP - General Family Medicine 05/06/18 documented as of this encounter
--- OUTSIDE RECORDS SUMMARY | 2025-04-28 13:02 | XMS_ITS | Encounter Summary ---
[facility] Address [address] [place] [address] Care Team Providers Care Modern Greek Studies Professor Name Role Phone Chad Coughlin MD Primary Care Provi kaitlin Reason for Visit * Reason Onset Date Comments Advice Only 03/01/2025 Encounter Details Date Type Department Care Team (Late st Contact Info) Description 03/01/2025 Telephone [facility] [address] [place] [phone] Chad Coughlin MD [address] [place] [address] Advice Only Social History Tobacco Use Types [...] Not on file Preferred Language Citizen Of [place] 04/06/2024 PHQ-2 Answer Date Recorded Retired PHQ-9: [...] Office Visit [facility] [address] [address] Michelle Hahn APRN [address] [address] 05/24/2025 2:30 PM EDT Office Visit [facility] [address] [phone] Chad Coughlin MD [address] [address] Scheduled Procedures Name Priority Associated Diagnoses Date/Ti [...] to help you manage your pain. Notes: [place] with Chronic Pain Patient Goals No Karen [...] documented as of this encounter Care Teams Modern Greek Studies Professor Relationship Specialty Start Date End Date Chad Coughlin MD 1760 [place] [address] PCP - General Family Medicine 05/06/18 documented as of this encounter
--- OUTSIDE RECORDS SUMMARY | 2025-04-28 13:02 | XMS_ITS | Encounter Summary ---
[facility] Address [address] [place] [address] Care Team Providers Care Construction Economist Name Role Phone Chad Coughlin MD Primary Care Provi kaitlin Reason for Visit * Reason Onset Date Comments Med Refill 01/18/2025 Encounter Details Date Type Department Care Team (Late st Contact Info) Description 01/18/2025 Refill [facility] [address] [place] [phone] Chad Coughlin MD [address] [place], [place] [phone] Social History Tobacco Use Types Packs/Day Years [...] or training? Not on file Preferred Language Djiboutian 04/06/2024 PHQ-2 Answer Date Recorded Retired PHQ-9: [...] Hedrick Relationship: Self Best call back number: [phone] What is the best time to reach [...] Hedrick Relationship: Self Best call back number: [phone] Requested Prescriptions: Requested Prescriptions Pending Prescriptions Disp Refills Cholecalciferol (Vitamin D3) 50 MCG (1999) tablet 30 tablet Sig: Take by mouth. Pharmacy where request should be sent: [id number] - [address] [facility] [address] [address] [facility] [address] & - [phone] - [phone] FX Last office visit with prescribing clinician: [...] 11:30 AM EDT Office Visit [facility] [address] [phone] Michelle Hahn APRN [address] [address] 05/24/2025 2:30 PM EDT Office Visit [facility] [address] [address] Chad Coughlin MD [address] [address] Scheduled Procedures Name Priority Associated Diagnoses Date/Ti [...] to help you manage your pain. Notes: [place] with Chronic Pain Patient Goals No Karen [...] documented as of this encounter Care Teams Construction Economist Relationship Specialty Start Date End Date Chad Coughlin MD 1760 [place] [address] PCP - General Family Medicine 05/06/18 documented as of this encounter
--- OUTSIDE RECORDS SUMMARY | 2025-04-28 13:02 | XMS_ITS | Encounter Summary ---
[facility] [address] [place] [address] Care Team Providers Care Control And Recovery Special Tactics Name Role Phone Chad Coughlin MD Primary Care Provi kaitlin Reason for Visit * Reason Onset Date Comments Bone Density Scan 03/28/2025 Encounter Details Date Type Department Care Team (Late st Contact Info) Description 03/28/2025 Telephone [facility]HE[facility]OLOG[facility] [address] [phone] Michelle Hahn APRN 330 [facility] 100 [place], [place] [phone] Bone Density Scan Social History Tobacco Use [...] or training? Not on file Preferred Language Bahamian 04/06/2024 PHQ-2 Answer Date Recorded Retired PHQ-9: [...] Office Visit [facility] [address] [place] [phone] Michelle Hahn APRN [address] [place] [address] [place] [address] 05/24/2025 2:30 PM EDT Office Visit [facility] 1760 [facility] 603 [place] [address] Chad Coughlin MD 1760 [facility] 603 [place], [place] [phone] Scheduled Procedures Name Priority Associated Diagnoses Date/Ti [...] to help you manage your pain. Notes: [place] with Chronic Pain Patient Goals No Karen [...] documented as of this encounter Care Teams Control And Recovery Special Tactics Relationship Specialty Start Date End Date Chad Coughlin MD 1760 [place] [address] PCP - General Family Medicine 05/06/18 documented as of this encounter
--- OUTSIDE RECORDS SUMMARY | 2025-04-28 13:02 | XMS_ITS | Encounter Summary ---
[facility] Address [address] [place] [address] Care Team Providers Care Prawn Trawler Hand Name Role Phone Chad Coughlin MD Primary Care Provi kaitlin Reason for Visit * Reason Comments Med Refill Encounter Details Date Type Department Care Team (Late st Contact Info) Description 07/31/2023 Refill [facility] [address] [place] [phone] Chad Coughlin MD [address] [place], [place] [phone] Spinal stenosis of lumbar region with neurogenic [...] 11:30 AM EDT Office Visit [facility] [address] [phone] Michelle Hahn APRN [address] [address] 05/24/2025 2:30 PM EDT Office Visit [facility] [address] [phone] Chad Coughlin MD [address] [address] Scheduled Procedures Name Priority Associated Diagnoses Date/Ti [...] documented as of this encounter Care Teams Prawn Trawler Hand Relationship Specialty Start Date End Date Chad Coughlin MD 1760 [place] [address] PCP - General Family Medicine 05/06/18 documented as of this encounter
--- OUTSIDE RECORDS SUMMARY | 2025-04-28 13:02 | XMS_ITS | Encounter Summary ---
[facility] Address [address] [place] [address] Care Team Providers Care User Experience Team Lead Name Role Phone Chad Coughlin MD Primary Care Provi kaitlin Reason for Visit * Reason Onset Date Comments Med Refill 09/13/2024 Encounter Details Date Type Department Care Team (Late st Contact Info) Description 09/13/2024 Refill [facility] [address] [place] [phone] Chad Coughlin MD [address] [place] [address] Social History Tobacco Use Types Packs/Day Years [...] or training? Not on file Preferred Language Mongolian 04/06/2024 PHQ-2 Answer Date Recorded Retired PHQ-9: [...] Hedrick Relationship: Self Best call back number: [phone] Requested Prescriptions: Requested Prescriptions Pending Prescriptions Disp Refills rOPINIRole (REQUIP) 1 MG tablet 90 tablet 1 Sig: Take 1 hour before bedtime. Cholecalciferol (Vitamin D3) 50 MCG (1999 [place]) tablet 30 tablet Sig: Take by mouth. Pharmacy where request should be sent: [id number] - [place], [place] - [facility] [address] AT [address]EXT [facility] - [phone] - [phone] FX Last office visit with prescribing clinician: [...] Description 05/10/2025 11:30 AM EDT Office Visit [facility] [address] [phone] Michelle Hahn APRN [address] [address] 05/24/2025 2:30 PM EDT Office Visit [facility] [address] [address] Chad Coughlin MD [address] [address] Scheduled Procedures Name Priority Associated Diagnoses Date/Ti [...] to help you manage your pain. Notes: [place] with Chronic Pain Patient Goals No Karen [...] documented as of this encounter Care Teams User Experience Team Lead Relationship Specialty Start Date End Date Chad Coughlin MD [address] [address] PCP - General Family Medicine 05/06/18 documented as of this encounter
--- OUTSIDE RECORDS SUMMARY | 2025-04-28 13:02 | XMS_ITS | Encounter Summary ---
Author Organization [facility] Address [address] [place] [address] Care Team Providers Care Medicare Compliance Auditor Name Role Phone Chad Coughlin MD Primary Care Provi kaitlin Reason for Visit * Reason Onset Date Comments Med Refill 02/28/2025 Encounter Details Date Type Department Care Team (Late st Contact Info) Description 02/28/2025 Refill [facility] [address] [place] [phone] Chad Coughlin MD [address] [place], [place] [phone] Spinal stenosis of lumbar region with neurogenic [...] or training? Not on file Preferred Language Croatian 04/06/2024 PHQ-2 Answer Date Recorded Retired PHQ-9: [...] Day. Pharmacy where request should be sent: [id number] - [place] [address] [address] [facility] [address] & - [phone] - [phone] FX Last office visit with prescribing clinician: [...] Description 05/10/2025 11:30 AM EDT Office Visit [facility] [address] [phone] Michelle Hahn APRN [address] [address] 05/24/2025 2:30 PM EDT Office Visit [facility] [address] [address] Chad Coughlin MD [address] [address] Scheduled Procedures Name Priority Associated Diagnoses Date/Ti [...] to help you manage your pain. Notes: [place] with Chronic Pain Patient Goals No Karen [...] documented as of this encounter Care Teams Medicare Compliance Auditor Relationship Specialty Start Date End Date Chad Coughlin MD 1760 [facility] [address] [place] [address] PCP - General Family Medicine 05/06/18 documented as of this encounter
--- OUTSIDE RECORDS SUMMARY | 2025-04-28 13:02 | XMS_ITS | Encounter Summary ---
Author Organization [facility] Address [address] [place] [address] Care Team Providers Care Research Geneticist Name Role Phone Chad Coughlin MD Primary Care Provi kaitlin Encounter Details Date Type Department Care Team (Late st Contact Info) Description 04/17/2015 External CPT II PERCUSSION INSTRUMENT TUNER - [facility] Social History Tobacco Use [...] Description 05/10/2025 11:30 AM EDT Office Visit [facility] RHEUMATOLOG[facility] [address] [phone] Michelle Hahn APRN 330 [facility] 100 [place] [address] 05/24/2025 2:30 PM EDT Office Visit [facility] 1760 [facility] [address] [place] [phone] Chad Coughlin MD 1760 [facility] [address] [place] [address] Scheduled Procedures Name Priority Associated Diagnoses Date/Ti [...] 7:31 PM EDT Other Comment:Discharged from [facility] on 02/21/20 -Merry Bell RN, BSN, CIC - Infection Control 02/23/2020 02/23/2020 06/26/2023 2:54 PM E DT COVID Screen (preop/placement) 02/23/2020 02/23/2020 02/23/2020 10:57 AM EDT COVID (rule out) 06/26/2023 06/26/2023 06/26/2023 2:54 PM EDT COVID (rule out) 09/12/2023 09/12/2023 09/19/2023 9:08 PM EST COVID Screen (preop/placement) 11/09/2023 11/09/2023 11/09/2023 7:39 PM EDT MRSA 11/09/2023 11/09/2023 documented as of this encounter Care Teams Research Geneticist Relationship Specialty Start Date End Date Chad Coughlin MD [address] [facility] [address] [place] [address] PCP - General Family Medicine 05/06/18 documented as of this encounter
--- OUTSIDE RECORDS SUMMARY | 2025-04-28 13:02 | XMS_ITS | Encounter Summary ---
Author Organization Healthcare Address [address] [place] [address] Care Team Providers Care Warp Tester Name Role Phone Chad Coughlin MD Primary Care Provider + [phone] Edgardo Browne MD Unavailable [phone] [address] Belle DMD Unavailable [phone] Kiya Macdonald PROGRAM ASSOCIATE Unavailable Maria L Gomez Unavailable Unavailable Reason [...] APRN [address] [place] [address] Phone: tel: fax: Referral ID Status Reason Start Date Expiration Date V isits Requested Visits Authorized [id number] Authorized 04/11/2025 10/11/2026 1 1 Encounter Details Date Type Department Care Team (Late st Contact Info) Description 04/11/2025 Telephone [facility] [address] [place] [address] Alex Alejandre MD [address] [place] [address] Social History Tobacco Use Types [...] drink first t juliana in the morning (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 * Telephone Encounter - Georges Cavazos - 04/28/2025 11:11 AM EDT Patient Phone Message Reason for Call: Patient calling to let Dr. Alejandre know MRI completed would like call back with next steps in care Best contact number and optimal time of day to reach caller: [phone] Note: Please do not reply to this message. Follow-up communication and further actions as a result of this message need to be communicated with the patient directly, if the patient is not active onMyChart. If the patient is active on MyChart, they will receive notification of the communication/outcome via MyChart. * Telephone Encounter - Kiya Macdonald APRN - 04/11/2025 3:32 PM EDT Spoke with patient. Patient having extreme low back pain and leg pain. Patient states that she tried her rheumatoid treatment for several days and this was unhelpful. Patient would like to get updated MRI and be seen again for potential surgical evaluation. We will order this at [facility]. Once that is completed she will [...] optimal time of day to reach caller: [phone] Ritu Note: Please do not reply to this message. Follow-up communication and further actions as a result of this message need to be communicated with the patient directly, if the patient is not active onMyChart. If the patient is active on MyChart, they will receive notification of the communication/outcome via MyChart. documented in this encounter Plan of Treatment [...] documented as of this encounter Care Teams Warp Tester Relationship Specialty Start Date End Date Chad Coughlin MD PCP - General 03/25/22 Edgardo Browne MD [address] [place] [address] Surgeon Neurosurgery 03/25/22 Hu Belle DMD [address] [facility] [address] [place] [address] Dentist 05/06/22 Kiya Macdonald APRN [address] [place] [address] Nurse Practitioner Neurosurgery 03/06/23 Maria L Gomez Dental Student Dental Tool Maker Bench 01/15/24 documented as of this encounter
--- OUTSIDE RECORDS SUMMARY | 2025-04-28 13:03 | XMS_ITS | Encounter Summary ---
Author Organization Healthcare Address [address] [place] [address] Care Team Providers Care Load Mixer Name Role Phone Chad Coughlin MD Primary Care Provider [phone] Edgardo Browne MD Unavailable [phone] Hu Belle DMD Unavailable [phone] Kiya Macdonald STRIPPING MACHINE OPERATOR Unavailable [phone] Maria L Gomez Unavailable Unavailable Encounter Details Date Type Department Care Team (Late st Contact Info) Description 04/26/2025 Orders Only External Location [address] [place] [phone] Provider, External Social History Tobacco Use Types Packs/Day Years [...] drink first t juliana in the morning (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) to steady your nerves or to get [...] on file documented as of this encounter Procedures Procedure Name Priority Date/Time Associated Diagnosis Comments MR NEURO OUTSIDE IMAGES 04/26/2025 2:14 PM EDT documented in this encounter Results * MR NEURO OUTSIDE IMAGES (04/26/2025 2:14 PM EDT) Anatomical Region Laterality Modality Magnetic Resonan ce 04/26/2025 2:14 PM EDT us External Provider IMG MRI PROCEDURES Final Resul t documented in this encounter Visit Diagnoses Not on filedocumented in this encounter Additional Health Concerns Assessment Noted Time A fall risk assessment has been complete d for the patient 09/21/2024 10:10 AM EST A Body Mass Index follow-up plan has been documented for the patient 10/01/2024 10:18 PM EST documented as of this encounter Care Teams Load Mixer Relationship Specialty Start Date End Date Chad Coughlin MD PCP - General 03/25/22 Edgardo Browne MD [address] [place] [address] Surgeon Neurosurgery 03/25/22 Hu Belle DMD [address] [place] [address] Dentist 05/06/22 Kiya Macdonald APRN [address] [place] [address] Nurse Practitioner Neurosurgery 03/06/23 Maria L Gomez Dental Student Dental Film Developing Machine Operator 01/15/24 documented as of this encounter
--- OUTSIDE RECORDS SUMMARY | 2025-04-28 13:03 | XMS_ITS | Encounter Summary ---
Author Organization [facility] Address [address] [place] [address] Care Team Providers Care Feature Writer Name Role Phone Chad Coughlin MD Primary Care Provi kaitlin Reason for Visit * Reason Comments Med Refill Encounter Details Date Type Department Care Team (Late Contact Info) Description 08/10/2022 Refill [facility] [address] [phone] Chad Coughlin MD [address] [place] [id number] Social History Tobacco Use Types Packs/Day Years [...] Description 05/10/2025 11:30 AM EDT Office Visit [facility] [address] [facility] [address] [place] [id number] Michelle Hahn APRN [address] [place] [address] 05/24/2025 2:30 PM EDT Office Visit [facility] [address] [facility] [address] [place] [phone] Chad Coughlin MD [address] [facility] [address] [place] [address] Scheduled Procedures Name Priority Associated Diagnoses Date/Ti [...] Indicated Resolved Time Other Comment:Discharged from [facility] on 02/21/20 -Merry Bell, RN, BSN, CIC - Infection Control 02/23/2020 02/23/2020 06/26/2023 2:54 PM E DT COVID (rule out) 06/26/2023 06/26/2023 06/26/2023 2:54 PM EDT COVID (rule out) 09/12/2023 09/12/2023 09/19/2023 9:08 PM EST COVID Screen (preop/placement) 11/09/2023 11/09/2023 11/09/2023 7:39 PM EDT MRSA 11/09/2023 11/09/2023 documented as of this encounter Care Teams Feature Writer Relationship Specialty Start Date End Date Chad Coughlin MD [address] [facility] [address] [place] [address] PCP - General Family Medicine 05/06/18 documented as of this encounter
--- OUTSIDE RECORDS SUMMARY | 2025-04-28 13:03 | XMS_ITS | Clinical Summary ---
Author Organization [facility] Address [address] [place] [address] Phone Care Team Providers Care Retanned Leather Roller Name Role Phone Pacheco Rogers Mateo Unavailable Conditions or Problems Problem Name Problem Code Onset Date Status Entry Date Provider Comment Standard Description Annotate Fall risk 529625354 (SNOMED CT) Active Artemio Curtis MD At increased risk for falls Rheumatoid factor, positive 003653290 (SNOMED CT) Active Artemio Curtis MD Rheumatoid factor detected Other specified urticaria 437902461 (SNOMED CT) Active Stephani Rafael Urticaria Elevated C-reative protein 544659653 (SNOMED CT) Active Stephani Rafael C-reactive protein outside reference range Pruritic rash 63584534 (SNOMED CT) Active Stephani Rafael Pruritic rash 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 (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 Stephani Rafael Leukemoid reaction HTN CKD, bgn, 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) 95848827 (SNOMED CT) Active Stephani Rafael Benign hypertension Medications Medication Instructions Start Date Stop Date Generic Name [facility] Provider GABAPENTIN 600 MG TABS Take 1 tablet by mouth three times a day gabapentin 85046211957 Bernadette Minor ASPIRIN 81 PO Take by mouth ASPIRIN 81 PO Bernadette Minor LOSARTAN POTASSIUM 100 MG TABS Take 1 tablet by mouth once a day losartan 69074667525 Bernadette Minor ROPINIROLE HCL 1 MG TABS Take 1 tablet by mouth every night ropinirole 05074414809 Bernadette Weber FLUTICASONE PROPIONATE 50 MCG/ACT SUSP 2 spray into both nostrils as directed fluticasone propionate 85837837036 Bernadette Weber VITAMIN D3 50 MCG (1999 UT) TABS Take by mouth cholecalciferol (vitamin d3) 82172654278 Bernadette Weber CETIRIZINE HCL 10 MG TABS Take 1 tablet by mouth once a day cetirizine 35494229443 Bernadette Weber HYDROXYZINE HCL 25 MG TABS Take 1 tablet by mouth three times a day as needed hydroxyzine hcl 71332071698 Bernadette Weber FAMOTIDINE 40 MG TABS Take 1 tablet by mouth once a day famotidine 94363119016 Bernadette Weber ROPINIROLE HCL 1 MG TABS Take 1 tablet by mouth Every Night. Take 1 hour before bedtime. ropinirole 87540717257 QIE qieuser PREDNISONE 20 MG TABS Take 3 tablets by mouth Daily for 3 days, THEN 2 tablets Daily for 3 days, THEN 1 tablet Daily for 3 days. prednisone 72772014991 QIE qieuser OXYCODONE-ACET AMINOPHEN 5-325 MG TABS TAKE 1 TABLET BY MOUTH TWICE A DAY FOR 7 DAYS THEN 1 TABLET 3 TIMES A DAY oxycodone-acetamin ophen 92878840396 QIE qieuser LOSARTAN POTASSIUM 100 MG TABS Take 1 tablet by mouth Daily. losartan 08631144607 QIE qieuser HYDROXYZINE HCL 25 MG TABS Take 1 tablet by mouth 3 (Three) Times a Day As Needed for Itching. hydroxyzine hcl 47652440519 QIE qieuser GABAPENTIN 600 MG TABS Take 1 tablet by mouth 3 (Three) Times a Day. gabapentin 87305892259 QIE qieuser FLUTICASONE PROPIONATE 50 MCG/ACT SUSP 2 sprays into the nostril(s) as directed by provider Every Night for 30 days. Administer 2 sprays in each nostril for each dose. fluticasone propionate 75412439644 QIE qieuser FAMOTIDINE 40 MG TABS Take 1 tablet by mouth Daily. famotidine 09125922627 QIE qieuser VITAMIN D3 50 MCG (2000 UT) TABS Take by mouth. cholecalciferol (vitamin d3) 41996144837 QIE qieuser CETIRIZINE HCL 10 MG TABS Take 1 tablet by mouth Daily. 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 Plan of Care Type Date Detail Referral Primary Care Pending order BMP Pending order CBC with Differe ntial Pending order C- reactive prot ein Pending order RAYMOND Pending order Other Pending order CMP Pending order CBC with Differe ntial Pending order C- reactive prot ein Pending order Sedimentation Ra te (ESR) Procedures Code Procedure Name Date Entry Date CPT-09011 BMP [id number] CBC with Differential 2023 CPT-74121 C- reactive protein CPT-88644 RAYMOND CPT-LAB Other CPT-prim Primary Care CPT-22389 CMP [id number] CBC with Differential 2023 CPT-37277 C- reactive protein CPT-20447 Sedimentation Rate (ESR) 11/24/25 Vital Signs Date [...]
--- OUTSIDE RECORDS SUMMARY | 2025-04-28 13:03 | XMS_ITS | Encounter Summary ---
Author Organization [facility] Address [address] [place] [address] Care Team Providers Care Weekend Caregiver Name Role Phone Chad Coughlin MD Primary Care Provi kaitlin Reason for Visit * Reason Onset Date Comments - MEDICATION 04/26/2024 Encounter Details Date Type Department Care Team (Late st Contact Info) Description 04/26/2024 Telephone [facility] [address] [place] [address] Ronn Gerber MD [address] [place] [address] - MEDICATION Social History Tobacco Use Types [...] or training? Not on file Preferred Language Guatemalan 04/06/2024 PHQ-2 Answer Date Recorded Retired PHQ-9: [...] to patient: Self Best call back number: [phone] Patient is needing: PAIN MANAGEMENT WON'T FILL PAIN MEDS UNLESS DR. GERBER RELEASES HER - PLEASE REACH OUT AND ADVISE SHE IS TOTALLY OUT - IN A LOT OF PAIN documented in this encounter Plan of Treatment Upcoming Encounters Date Type Department Care Team (Late st Contact Info) Description 05/10/2025 11:30 AM EDT Office Visit [facility] RHE[facility] [address] [phone] Michelle Hahn APRN [address] [address] 05/24/2025 2:30 PM EDT Office Visit [facility] [address] [phone] [place] [address] [place] [address] Scheduled Procedures Name Priority Associated Diagnoses Date/Ti [...] and Manage My Symptoms Patient Goals No Wayne, Karen, RN Note: Follow Up Date - [...] to help you manage your pain. Notes: Anderson with Chronic Pain Patient Goals No Karen [...] documented as of this encounter Care Teams Weekend Caregiver Relationship Specialty Start Date End Date Chad Coughlin MD [address] [place] [address] PCP - General Family Medicine 05/06/18 documented as of this encounter
--- OUTSIDE RECORDS SUMMARY | 2025-04-28 13:03 | XMS_ITS | Encounter Summary ---
Author Organization [facility] Address [address] [place] [address] Care Team Providers Care Supervisor Aircraft Cleaning Name Role Phone Edwardo Mccormack MD Primary Care Provider Marlen Cabello DMD Unavailable [phone] Mary Hahn Unavailable Unavailable Willem Castro Unavailable Unavailable Chad Coughlin MD Primary Care Provider [phone] Edgardo Browne MD Unavailable [phone] Hu Belle DMD Unavailable [phone] Светлана Edwards Unavailable Unavailable iKya Macdonald INDUSTRIAL PAINTER Unavailable [phone] Erica Aguilar Unavailable Unavailable Maria L Gomez Unavailable Unavailable Encounter Details Date Type Department Care Team (Late st Contact Info) Description 12/10/2020 Abstract [facility] [address] [place] [address] Dental, Provider, DDS [address] [place] [address] Social History Tobacco Use Types Packs/Day [...] on filedocumented in this encounter Care Teams Supervisor Aircraft Cleaning Relationship Specialty Start Date End Date Edwardo Mccormack MD [address] [place] [address] [place] [address] PCP - General 01/04/21 03/24/22 Chad Coughlin MD [facility] Dentistry PCP - General 03/25/22 Marlen Cabello, DMD [address] [place] [address] Dentist Dental Salon Assistant 02/05/21 Mary Hahn [facility] Dental Student Dental Salon Assistant 02/05/21 02/05/21 Willme Castro [facility] Dental Student Dental Salon Assistant 02/05/21 12/10/22 Edgardo Browne MD [address] [place] [address] Surgeon Neurosurgery 03/25/22 Hu Belle, DMD [address] [place] [address] Dentist 05/06/22 Светлана Edwards Dental Student Dental Salon Assistant 12/11/22 01/14/24 Kiya Macdonald APRN [address] [place] [address] Nurse Practitioner Neurosurgery 03/06/23 [place] [address] Coffin Maker 12/14/23 01/25/24 Maria L Gomez Dental Student Dental Salon Assistant 01/15/24 documented as of this encounter
--- OUTSIDE RECORDS SUMMARY | 2025-04-28 13:03 | XMS_ITS | Clinical Summary ---
Author Organization [facility] Address [address] [place] [address] Care Team Providers Care Global Cto Name Role Phone Chad Coughlin MD Primary Care Provider [phone] Edgardo Browne MD Unavailable [phone] Hu Belle DMD Unavailable [phone] Kiya Macdonald STATISTICAL TECHNICIAN Unavailable [phone] Maria L Gomez Unavailable Unavailable Allergies Active [...] restless Medications ergocalciferol (Vitamin D-2) 1.25 MG (61145 UT) capsule Take by mouth 1 (one) [...] Encounters Date Type Department Care Team Description 04/26/2025 Orders Only External Location [address] [place] [address] Provider, External 04/11/2025 Telephone [place] [facility] [address], [address] [place] [address] Alex Alejandre MD from Last 3 Months [...] drink first t juliana in the morning (EYE-LEAD SHIPPER) to steady your nerves or to get [...] Done Comments Dental X-Ray: Full Mouth 1941 [facility]-Infant/Child/Adol SDOH Screenings 1940 [facility]- SDOH Screenings 1959 [...] 03/24/2024, 1 , 12/09/2022, Additional history exists [id number] Vaccine ( season) 2025 06/21/2024, 06/11/2022, 06/19/2021, Additional history exists [facility]-Influenza [...] this topic Medical Devices Implanted Type Area Tax Appraiser Device Identifier Shelf Expiration Date Model / Serial / Lot Miki Enamorado [id number] Jessica [id number] 5 Dg - [id number] Implanted:Qty : 1 on 03/12/2023 by Alex Alejandre MD at [facility] N/A: Spine Lumbar DePSynovex Spine [id number] 05/27/2027 [id number] / / [id number] Screw 5.5mm Viper Ti Fen Crtcl Polyax 7mm X 40mm - [id number] Implanted:Qty : 1 on 03/12/2023 by Alex Alejandre MD at [facility] N/A: Spine Lumbar DePuy Spine Sales -[id number] 03/12/2023 [id number] / / Screw 5.5mm Viper Ti Fen Crtcl Polyax 7mm X 45mm - [id number] Implanted:Qty : 3 on 03/12/2023 by Alex Alejandre MD at [facility] N/A: Spine Lumbar DePuy Spine Sales -[id number] 03/12/2023 [id number] / / Single Inner Setscrew - [id number] Implanted:Qty : 4 on 03/12/2023 by Alex Alejandre MD at [facility] N/A: Spine Lumbar DePuy Spine Sales -[id number] 03/12/2023 [id number] / / Pre-Lordosed Jarek W/ Line 45mm - [id number] Implanted:Qty : 2 on 03/12/2023 by Alex Alejandre MD at [facility] N/A: Spine Lumbar DePuy Spine Sales -[id number] 03/12/2023 [id number] / / Procedures Procedure Name Priority Date/Time Associated Diagnosis Comments MR NEURO OUTSIDE IMAGES 04/26/20 2:14 PM EDT PROPHYLAXIS - ADULT Routine 03/24/2024 4 :00 PM EDT Dental calculus PERIODIC ORAL EVALUATION - ESTABLISHED PATIENT Routine 03/24/2024 4:00 PM EDT Dental calculus BITEWINGS - 4 RADIOGRAPHIC IMAGES Routine 06/23/2023 1:00 PM EDT Dental calculus from Last 3 Months or Most Recently Relevant to Health Maintenance Results * MR NEURO OUTSIDE IMAGES (04/26/2025 2:14 PM EDT) Anatomical Region Laterality Modality Magnetic Resonan ce 04/26/2025 2:14 PM EDT us External Provider IMG MRI PROCEDURES Final Resul t from Last 3 Months Insurance MEDICARE [employer] D[employer] HMO [place] [id number] AETNA Advance Directives * Full Code (Latest Code Status on File) Date Activated Date Inactivated Comments 03/16/2023 1:08 PM * Full Code Date Activated Date Inactivated Comments 03/12/2023 9:50 AM 03/16/2023 1:08 PM Question Answer Comments Patient has decision-making capacity? Yes Care Teams Global Cto Relationship Specialty Start Date End Date Chad Coughlin MD PCP - General 03/25/22 Edgardo Browne MD [address] [place] [address] Surgeon Neurosurgery 03/25/22 Hu Belle DMD [address] [facility] [address] [place] [address] Dentist 05/06/22 Kiya Macdonald APRN [address] [place] [address] Nurse Practitioner Neurosurgery 03/06/23 Maria L Gomez Dental Student Dental Accounts Payable Manager 01/15/24
--- OUTSIDE RECORDS SUMMARY | 2025-04-28 13:03 | XMS_ITS | Encounter Summary ---
Author Organization [facility] Address [address] [place] [address] Care Team Providers Care Project Manager Entertainment And Media Name Role Phone Edwardo Mccormack MD Primary Care Provider [phone] Marlen Cabello DMD Unavailable [phone] Willem Castro Unavailable Unavailable Chad Coughlin MD Primary Care Provider [phone] Edgardo Browne MD Unavailable [phone] Hu Belle DMD Unavailable [phone] Светлана Edwards Unavailable Unavailable Kiya Macdonald THERAPY TECHNICIAN Unavailable [phone] Erica Aguilar Unavailable Unavailable Maria L Gomez Unavailable Unavailable Reason for Referral * Consultation (Routine) - Closed Specialty Diagnoses / Procedures Referred By Contac t Referred To Contact Neurosurgery Diagnoses DDD (degenerative disc disease), lumbar Chad Coughlin MD [address] [place] [address] Phone: tel: fax: Edgardo Browne MD [address] [place] [address] Phone: tel: fax: Referral ID Status Reason Start Date Expiration Date V isits Requested Visits Authorized [id number] Closed Specialty Services Required 2022 09/04/2023 1 1 Encounter Details Date Type Department Care Team (Late st Contact Info) Description 2022 Community Orders Community Practice [address] [place] [address] Chad Coughlin MD [address] [facility] [address] [place] [address] DDD (degenerative disc disease), lumbar (Primary Dx) [...] disc documented in this encounter Care Teams Project Manager Entertainment And Media Relationship Specialty Start Date End Date Edwardo Mccormack MD [address] [place] [address] PCP - General 01/04/21 03/24/22 Chad Coughlin MD [employer] PCP - General 03/25/22 Marlen Cabello DMD [address] [facility] [place] [address] Dentist Dental Mogul Operator 02/05/21 Willem Castro [employer] Dental Student Dental Mogul Operator 02/05/21 12/10/22 Edgardo Browne MD [address] [place] [address] Surgeon Neurosurgery 03/25/22 Hu eBlle, OSKAR [address] [facility] [address] [place] [address] Dentist 05/06/22 Светлана Edwards Dental Student Dental Mogul Operator 12/11/22 01/14/24 Kiya Macdonald APRN [address] [place] [address] Nurse Practitioner Neurosurgery 03/06/23 [place] [address] Dive Superintendent 12/14/23 01/25/24 Maria L Gomez Dental Student Dental Mogul Operator 01/15/24 documented as of this encounter
--- OUTSIDE RECORDS SUMMARY | 2025-04-28 13:03 | XMS_ITS | Encounter Summary ---
Author Organization [facility] Address [address] [place] [address] Care Team Providers Care Guzzler Builder Name Role Phone Chad Coughlin MD Primary Care Provi kaitlin Reason for Visit * Reason Onset Date Comments Med Refill 04/26/2024 Encounter Details Date Type Department Care Team (Late st Contact Info) Description 04/26/2024 Refill [facility] [address] [place] [address] Chad Coughlin MD [address] [place], [place] [id number] Social History Tobacco Use Types Packs/Day Years [...] or training? Not on file Preferred Language British 04/06/2024 PHQ-2 Answer Date Recorded Retired PHQ-9: [...] DAVIS AND THEN HAD TO GO TO [facility]. SHE DEVELOPED A BLOOD CLOT ETC. SHEIS [...] Hedrick Relationship: Self Best call back number: [phone] Requested Prescriptions: Requested Prescriptions Pending Prescriptions Disp Refills oxyCODONE-acetaminophen (PERCOCET) 10-325 MG per tablet Sig: Take 1 tablet by mouth Every 6 (Six) Hours As Needed for Moderate Pain. Pharmacy where request should be sent: [id number] - [place], [place] - [facility] [address] AT [address]EXT TO [facility] - [phone] - [phone] FX Last office visit with prescribing clinician: 03/01/2024 Last telemedicine visit with prescribing clinician: Visit date not found Next office visit with prescribing clinician: 05/05/2024 Additional details provided by patient: PATIENT STATED SHE HAS BEEN GOING TO PAIN MANAGEMENT BUT HAD KNEE SURGERY WITH DR DAVIS AND THEN HAD TO GO TO [facility]. SHE DEVELOPED A BLOOD CLOT ETC. SHEIS [...] Visit [facility] [address] [address] [address] [place] [phone] Michelle Hahn APRN [address] [facility] [address] [place] [address] 05/24/2025 2:30 PM EDT Office Visit [facility] [address] [facility] [address] [place] [phone] Chad Coughlin MD [address] [facility] [address] [place], [place] [id number] Scheduled Procedures Name Priority Associated Diagnoses Date/Ti [...] to help you manage your pain. Notes: Victor with Chronic Pain Patient Goals No Karen [...] documented as of this encounter Care Teams Guzzler Builder Relationship Specialty [place] [address] [place], [place] [id number] PCP - General Family Medicine 05/06/18 documented as of this encounter
[2025-04-28] MEDS: METHOCARBAMOL 500MG TABLET 1000 MG PO (13:06)
[2025-04-28] MEDS: ACETAMINOPHEN 500MG TAB 1000 MG PO (13:06)
[2025-04-28] MEDS: KETOROLAC 15MG/ML VIAL 15 MG IV (13:06)
[2025-04-28] MEDS: LACTATED RINGERS 1000ML 1,000 ML 999 ML IV (13:09)
[2025-04-28 13:17] LABS: Hematocrit 37.7 % (37.0-47.0); Hemoglobin 12.4 g/dL (12.2-16.2); Immature Granulocytes % 0.3 %; Mean Corpuscular HGB Conc 32.9 g/dL (31.8-35.4); Mean Corpuscular Hemoglobin 31.2 pg (27.0-31.2); Mean Corpuscular Volume 94.7 fl (81-99); Nucleated Red Blood Cells % 0 %; Platelet Count 145 K/mm3 (142-424); Red Blood Count 3.98 M/mm3 (4.20-5.40); Red Cell Distribution Width-SD 46.2 fL; White Blood Count 7.8 K/mm3 (4.8-10.8)
[2025-04-28] MEDS: HYDROMORPHONE 2MG/ML SYRINGE 1 MG IV (13:27)
[2025-04-28 13:29] LABS: Alanine Aminotransferase 14 U/L (12-78); Albumin Level 4.3 g/dl (3.5-5.0); Albumin/Globulin Ratio 1.5 (1.1-1.8); Alkaline Phosphatase 94 U/L (38-126); Anion Gap 13.6 mEq/L (5-15); Aspartate Amino Transferase 27 U/L (14-36); Bilirubin,Total 1.0 mg/dl (0.2-1.3); Blood Urea Nitrogen 33 mg/dl (7-17); Calcium 9.7 mg/dl (8.4-10.2); Carbon Dioxide 21 mmol/L (22.0-30.0); Chloride 108 mmol/L (98-107); Creatine Kinase 89 U/L (30-135); Creatinine Clearance Estimated 40 mL/min (50-200); Creatinine,Serum 1.20 mg/dl (0.52-1.04); Estimated Glomerular Filt Rate 43 ml/min (>60); GFR (African American) 52 ML/MIN (>60); Globulin 2.8 g/dL (1.3-3.2); Glucose 108 mg/dl (74-100); Lipase 104 U/L (23-300); Potassium 4.6 mmoL/L (3.5-5.1); Sodium 138 mmol/L (136-145); Total Protein,Serum 7.1 g/dl (6.3-8.2)
[2025-04-28 13:47] LABS: Troponin I < 0.01 ng/ml (0.00-0.034)
--- NOTE | 2025-04-28 14:01 | ECG_ITS ---
APPROVED REPORT Exam: Resting ECG HR:58 bpm ECG Measurements Heart Rate 58 AXES DC 161 P 84 QRSd 72 QRS 22 QT 432 T 74 QTc 429 Conclusion Normal sinus bradycardia Normal axis Normal intervals No STEMI Electronically signed by : Clemente Koch, 04/28/2025 17:41:41
[2025-04-28] MEDS: SODIUM CHLORIDE 0.9% 10ML SYR (RAD ONLY) 10 ML IV (14:26)
[2025-04-28] MEDS: IOPAMIDOL-370 (76%);100ML BOTTLE 75 ML IV (14:26)
[2025-04-28 14:42] LABS: Coronavirus 19, PCR Not Detected (NotDetected); Influenza A, PCR Not Detected (NotDetected); Influenza B, PCR Not Detected (NotDetected)
[2025-04-28] MEDS: OXYCODONE 5MG IMMEDIATE RELEASE TABLET 10 MG PO (15:43)
== END 2025-04-28 15:45 | disposition home or self-care (01) ==
PROVIDERS: Emergency Provider Student in an Organized Health Care Education/Training Program; PCP Family Medicine
DX: R10.30 Lower abdominal pain, unspecified (principal); R11.2 Nausea with vomiting, unspecified; M79.7 Fibromyalgia; R00.1 Bradycardia, unspecified
CPT/HCPCS: 74177; 80053; 82550; 83690; 84484; 85025; 87631; 93005; 96361; 96374; 96375; 99284; J1171; J1885; J7120; Q9967